=== PATIENT | male | born 1960 | race Caucasian/White ===

== ENCOUNTER 2019-11-08 07:03 | Inpatient (IN) ==
[2019-11-08] MEDS ORDERED: SODIUM CHLORIDE 0.9% 500 ML IV SCH (07:15)
[2019-11-08] MEDS ORDERED: STAT IV Infusion **Titration per Protocol STA ×2 (07:17→12:21)
[2019-11-08] MEDS ORDERED: ETOMIDATE 2 MG/ML 20 ML VIAL IV ONE ×2 (07:17→16:02)
[2019-11-08] MEDS ORDERED: PROPOFOL BOLUS FROM BAG IV PRN ×2 (07:17→12:21)
[2019-11-08] MEDS ORDERED: RAPID SEQUENCE INDUCTION BAG ONE (07:24)
[2019-11-08] MEDS ORDERED: ROCURONIUM BROMIDE 10 MG/ML 5 ML VIAL IV ONE (07:24)
[2019-11-08] MEDS ORDERED: propofoL 1,000 MG/100 ML VIAL IV SCH (07:30)
--- NOTE | 2019-11-08 07:36 | Emergency Department Note ---
Impression & Plan Altered mental status, Respiratory failure, Open wound of left foot ED Provider Note Provider: Alan Barksdale MD DATE OF SERVICE: 11/08/2019 CHIEF COMPLAINT: Unresponsive HISTORY OF PRESENT ILLNESS: Patient is a 58-year-old gentleman with a history of alcoholic cirrhosis, diabetes, recurrent foot infections with a recent hospitalization for encephalopathy treated at that time for Klebsiella pneumonia coming today from [facility] for you to change in mental status overnight. Patient evidently per report from the facility was hospitalized at [facility] for recurrent diabetic foot ulcer as well as encephalopathy. Was on ertapenem at that time. He had a paracentesis at [facility] for 6 L of fluid removed. Evidently there is been some issues at home prior to his hospi talizations with him affording rifaximin they believe the cause of his mental status change was related to that previously. Patient did have a Klebsiella pneumonia that he was treated for as well. Does have a reported underlying history of COPD as well. Facility states that at some point overnight his mental status change. They noted rounding around 6-6 30a this morning that he had gurgling breathing sounds and a code was called to their facility. He was brought here for further care. He was unresponsive for them and did not respond to painful stimuli. EMS reported mildly elevated glucose in the 120s. Upon arrival here he will occasionally move the upper extremities but not following commands. Eyes are roving. Nonverbal. He is unable provide significant history. REVIEW OF SYSTEMS: Unable to obtain secondary to mental status PAST MEDICAL HISTORY: As noted above MEDICATIONS: Reviewed the medication listing from the facility without noted antibiotic. FMH: Unavailable due to the patient's mental status SOCIAL HISTORY: , smoker PHYSICAL EXAM: GENERAL: Laying on the stretcher with an occasional gurgling breathing sounds. Head: normocephalic and atraumatic EYES: No injection, discharge or icterus. NECK: Trachea midline. Supple. ENT: Mucous membranes pink and somewhat dry. The tongue appears to be sliding in the back of the mouth there is no apparent gag with stimulation. LUNGS: No retractions. Breath sounds with some expiratory wheeze but noted bilaterally HEART: Regular rate and rhythm. No chest wall tenderness ABDOMEN: Soft obese and moderately full. Does not appear to be causing tenderness of the limit exam due to his mental status. SKIN: Acyanotic, warm, and diaphoretic in addition to the lower extremity wounds as below there is some healing bruising and plaque of skin on the right upper extremity forearm. EXTREMITIES: 2+ lower extremity edema with some chronic stasis changes as well as a very small slight erythema over the mid left and a approximately 2 x 3 cm area of open wound on the dorsum of the left foot that appears purulent with granulation tissue noted as well. No crepitus grossly appreciated. NEUROLOGICAL: To sternal rub the patient will move both hands towards his chest. No movement noted in the lower extremities. Occasionally will move his left and right upper extremity spontaneously. Not following commands. No obvious facial droop. EK bpm sinus rhythm with rare PVC. No acute ST segment elevation or depressions appreciated. QTC within normal limits. Normal axis. CONTINUOUS CARDIAC MONITORING: was ordered and showed a heart rate of 88 bpm in normal sinus rhythm with rare PVC Patient's hypertension was referred to the hospitalist HOSPITAL COURSE: 657 Patient was first seen and H&P performed. Patient had been obtunded respiratory therapy notified. 729 patient was intubated without apparent complication. 744 discussed with facility via phone recent history. 950 discussed with the PR hospitalist. [address] stenographer. ED Intubation performed by myself, emergent consent given his altered mental status Indication airway protection, altered mental status. The patient was on 100% oxygen via NC prior to the procedure. Suction, airway equipment, RSI drugs, respiratory equipment, and appropriate personnel were prepared prior to the initiation of the procedure. A time out was taken. Induction was performed with 20 mg of etomidate and paralysis with 75 mg of rocuronium. After observing the clinical benefit of the medications, the airway was easily visualized utilizing a 3 glide scope. A 7.5 size ETT tube was placed atraumatically to 24 cm using standard technique. The cuff inflated without signs of malfunction. There were bilateral breath sounds, positive colormetric change, no gastric sounds, a good capnography waveform, and post procedure pulse oximetry was 93 % and rising. Post intubation sedation and paralysis was administered using propofol drip with occasional fentanyl bolus. There were no complications. Patient's laboratory studies and imaging reviewed. Differential includes Infection, dehydration, metabolic abnormality, hypo/hyperglycemia, electrolyte disturbance, anemia, hypoxia, cardiac sources, intracerebral event, toxicologic, neurologic, as well as other pathologies. IMPRESSION/MEDICAL DECISION MAKING: Patient presents with acute change in mental status. Declined at some point overnight but an unclear onset at least an initial discussions with the facility he was at. Recent hospitalization with infection. Patient upon arrival not tachycardic, hypotensive, or significantly hypoxic but not protecting his airway. No gag reflex. Patient currently has gurgling sounds. Given this decision was made for intubation for airway protection. Records from the facility indicate he is a full code. This was completed as above without complication. A broad differential was obtained. He is outside any window for TPA given the unclear onset. Not having significant focal findings on exam. I would lower suspicion for seizure or nonconvulsive status. CT the head however will be obtained as well as vessel studies if creatinine permits. CT of the chest was obtained as well as a chest x-ray. Basic labs, blood culture, VBG, ammonia, lactate were sent. He will be empirically treated given his critical illness at this time with a dose of ertapenem which he is tolerating the past. Patient does have multiple noted allergies on his medication list. Patient's left lung does appear somewhat hazy on the x-ray concerning for possible parenchymal pathology such as pneumonia. No evidence of pneumothorax. I doubt this represents acute PE however given the chest x-ray findings will scan his chest to obtain additional information and exclude other pathology given he will be a CT already. Laboratory studies do show leukocytosis 12.4 here with mild anemia of 10.4. Mild thrombocytopenia is noted. INR slightly elevated. Slight hyponatremia 134. Renal function does not appear significantly different than the previous value from the facility. Bilirubin just slightly elevated. TSH is slightly elevated. Urine is negative for signs of infection. Lactate not significantly elevated. CT the chest without evidence of PE but again questions a possible pneumonia. Did empirically receive ertapenem here given allergy pro file. VBG noted to be slightly acidotic and hypercarbic and vent settings adjusted. Ammonia did take a redraw and was pending. CTs of the head and CT angiograms without acute intracranial abnormality or signs of vascular occlusion. Given this, discussed with the hospitalist here for further inpa tient care and per the request the ICU was notified as well. Ammonia later returned significantly elevated. DIAGNOSIS: Altered mental status, respiratory failure, hepatic encephalopathy, left foot w ound DISPOSITION: Hospitalist will evaluate Critical Care I have personally spent 44 minutes of critical care time in the direct management of this patient. This includes bedside care, interpretation of diagnostic studies, and testing, discussion with consultants, patient, and family members, and other required patient management activities. These 44 minutes is in excess of all separately billable procedures. Past Med/Surg History Social History Smoking Status: Unknown if ever smoked Feels Safe at Home: Declines to Answer Allergies Allergies Allergy/AdvReac Type Severity Reaction Status Date / Time adhesive tape Allergy Unknown Unknown Unverified 11/08/19 08:48 Cephalosporins Allergy Unknown Unknown Unverified 11/08/19 08:48 ciprofloxacin Allergy Unknown Unknown Unverified 11/08/19 08:48 linezolid Allergy Unknown Unknown Unverified 11/08/19 08:48 Penicillins Allergy Unknown Unknown Unverified 11/08/19 08:48 vancomycin Allergy Unknown Unknown Unverified 11/08/19 08:48 Home Meds Home Medications Medication Instructions Recorded Confirmed acetaminophen [Tylenol] 650 mg PO QID PRN 11/08/19 11/08/19 albuterol sulfate 2 puff INHALATION Q6 PRN 11/08/19 11/08/19 atorvastatin 20 mg PO HS 11/08/19 11/08/19 bisacodyl 10 mg MT DAILY PRN 11/08/19 11/08/19 collagenase clostridium histo. 1 applic TOPICAL DAILY 11/08/19 11/08/19 [Santyl] cyanocobalamin (vitamin B-12) 500 mcg PO QAM 11/08/19 11/08/19 dextromethorphan-guaifenesin 10 ml PO Q6H PRN 11/08/19 11/08/19 docusate sodium 100 mg PO BID 11/08/19 11/08/19 fluticasone furoate-vilanterol 1 inh INHALATION QAM 11/08/19 11/08/19 furosemide 40 mg PO BID 11/08/19 11/08/19 gabapentin 100 mg PO TID 11/08/19 11/08/19 lactulose 15 ml PO QID 11/08/19 11/08/19 lidocaine [Lidoderm] 2 patch TOPICAL QAM 11/08/19 11/08/19 magnesium hydroxide [Milk of 30 ml PO DAILY PRN 11/08/19 11/08/19 Magnesia] nystatin 1 applic TOPICAL QID 11/08/19 11/08/19 pantoprazole 40 mg PO QAM 11/08/19 11/08/19 polyethylene glycol 3350 [Miralax] 17 g PO QDL PRN 11/08/19 11/08/19 prednisone 30 mg PO QAM 11/08/19 11/08/19 rifaximin [Xifaxan] 550 mg PO BID 11/08/19 11/08/19 sennosides-docusate sodium 1 tab-cap PO QDL PRN 11/08/19 11/08/19 [Senokot-S] sodium phosphates [Fleet Enema] 133 ml MT DAILY PRN 11/08/19 11/08/19 spironolactone 100 mg PO BID 11/08/19 11/08/19 sucralfate 1 g PO QAM 11/08/19 11/08/19 tamsulosin 0.4 mg PO QAM 11/08/19 11/08/19 thiamine HCl (vitamin B1) 100 mg PO QAM 11/08/19 11/08/19 umeclidinium [Incruse Ellipta] 1 inh INHALATION QAM 11/08/19 11/08/19 zinc sulfate 220 mg PO QAM 11/08/19 11/08/19 Results & Data (ED) Vital Signs Vital Signs - 24 hr 11/08/19 06:53 11/08/19 07:07 11/08/19 07:10 Temperature 35.8 C L Temperature Source Rectal Pulse Rate 84 81 77 Pulse Rate from SpO2 Sensor 81 81 Respiratory Rate 14 18 17 Respiratory Effort / Characteristics Labored Respiratory Depth Shallow Blood Pressure 112/70 112/70 Blood Pressure Mean 84 73 Blood Pressure Position Lying Pulse Oximetry 97 96 96 Oxygen Delivery Method Room Air Room Air Room Air Fraction of Inspired Oxygen Sepsis Recent Fever Within 48 Hours Yes Sepsis New/Unexplained Change in Mental Status Yes Sepsis Action Taken by Nursing Physician Notified End-Tidal CO2 11/08/19 07:23 11/08/19 07:30 11/08/19 07:32 Temperature Temperature Source Pulse Rate 75 74 93 H Pulse Rate from SpO2 Sensor 74 75 92 H Respiratory Rate 15 16 23 Respiratory Effort / Characteristics Respiratory Depth Blood Pressure 177/105 H Blood Pressure Mean 125 Blood Pressure Position Pulse Oximetry 100 100 93 Oxygen Delivery Method Room Air Room Air Room Air Fraction of Inspired Oxygen Sepsis Recent Fever Within 48 Hours Sepsis New/Unexplained Change in Mental Status Sepsis Action Taken by Nursing End-Tidal CO2 11/08/19 07:40 11/08/19 07:50 11/08/19 08:00 Temperature Temperature Source Pulse Rate 85 84 85 Pulse Rate from SpO2 Sensor 86 84 84 Respiratory Rate 16 Respiratory Effort / Characteristics Respiratory Depth Blood Pressure Blood Pressure Mean Blood Pressure Position Pulse Oximetry 98 100 100 Oxygen Delivery Method Mechanical Vent Mechanical Vent Mechanical Vent Fraction of Inspired Oxygen 100 Sepsis Recent Fever Within 48 Hours Sepsis New/Unexplained Change in Mental Status Sepsis Action Taken by Nursing End-Tidal CO2 36 36 39 11/08/19 08:09 11/08/19 08:10 11/08/19 08:16 Temperature Temperature Source Pulse Rate 82 84 85 Pulse Rate from SpO2 Sensor 82 82 85 Respiratory Rate Respiratory Effort / Characteristics Respiratory Depth Blood Pressure 195/75 H 180/78 H Blood Pressure Mean 99 123 Blood Pressure Position Pulse Oximetry 100 100 100 Oxygen Delivery Method Mechanical Vent Mechanical Vent Mechanical Vent Fraction of Inspired Oxygen Sepsis Recent Fever Within 48 Hours Sepsis New/Unexplained Change in Mental Status Sepsis Action Taken by Nursing End-Tidal CO2 36 37 37 11/08/19 08:20 11/08/19 08:27 11/08/19 08:30 Temperature Temperature Source Pulse Rate 82 85 84 Pulse Rate from SpO2 Sensor 81 84 85 Respiratory Rate Respiratory Effort / Characteristics Respiratory Depth Blood Pressure 187/75 H Blood Pressure Mean 93 Blood Pressure Position Pulse Oximetry 100 100 98 Oxygen Delivery Method Mechanical Vent Mechanical Vent Mechanical Vent Fraction of Inspired Oxygen Sepsis Recent Fever Within 48 Hours Sepsis New/Unexplained Change in Mental Status Sepsis Action Taken by Nursing End-Tidal CO2 39 37 38 11/08/19 08:31 11/08/19 08:39 11/08/19 08:40 Temperature Temperature Source Pulse Rate 83 80 81 Pulse Rate from SpO2 Sensor 87 81 83 Respiratory Rate Respiratory Effort / Characteristics Respiratory Depth Blood Pressure 173/77 H 180/74 H Blood Pressure Mean 110 124 Blood Pressure Position Pulse Oximetry 100 99 100 Oxygen Delivery Method Mechanical Vent Mechanical Vent Mechanical Vent Fraction of Inspired Oxygen Sepsis Recent Fever Within 48 Hours Sepsis New/Unexplained Change in Mental Status Sepsis Action Taken by Nursing End-Tidal CO2 43 39 40 11/08/19 08:50 11/08/19 09:20 11/08/19 09:23 Temperature Temperature Source Pulse Rate 76 74 Pulse Rate from SpO2 Sensor 76 74 Respiratory Rate Respiratory Effort / Characteristics Respiratory Depth Blood Pressure 141/65 H Blood Pressure Mean 105 Blood Pressure Position Pulse Oximetry 95 99 Oxygen Delivery Method Mechanical Vent Mechanical Vent Fraction of Inspired Oxygen Sepsis Recent Fever Within 48 Hours Sepsis New/Unexplained Change in Mental Status Sepsis Action Taken by Nursing End-Tidal CO2 37 33 11/08/19 09:30 11/08/19 09:35 11/08/19 09:36 Temperature Temperature Source Pulse Rate 73 73 73 Pulse Rate from SpO2 Sensor 73 73 73 Respiratory Rate Respiratory Effort / Characteristics Respiratory Depth Blood Pressure Blood Pressure Mean 95 92 Blood Pressure Position Pulse Oximetry 97 97 98 Oxygen Delivery Method Mechanical Vent Mechanical Vent Mechanical Vent Fraction of Inspired Oxygen Sepsis Recent Fever Within 48 Hours Sepsis New/Unexplained Change in Mental Status Sepsis Action Taken by Nursing End-Tidal CO2 40 41 40 11/08/19 09:38 11/08/19 09:39 11/08/19 09:40 Temperature Temperature Source Pulse Rate 70 72 72 Pulse Rate from SpO2 Sensor 72 70 72 Respiratory Rate Respiratory Effort / Characteristics Respiratory Depth Blood Pressure 124/70 Blood Pressure Mean 94 Blood Pressure Position Pulse Oximetry 98 97 99 Oxygen Delivery Method Mechanical Vent Mechanical Vent Mechanical Vent Fraction of Inspired Oxygen Sepsis Recent Fever Within 48 Hours Sepsis New/Unexplained Change in Mental Status Sepsis Action Taken by Nursing End-Tidal CO2 41 42 36 11/08/19 09:46 11/08/19 09:50 11/08/19 10:00 Temperature Temperature Source Pulse Rate 70 67 65 Pulse Rate from SpO2 Sensor 69 67 66 Respiratory Rate Respiratory Effort / Characteristics Respiratory Depth Blood Pressure 124/67 Blood Pressure Mean 83 Blood Pressure Position Pulse Oximetry 98 99 99 Oxygen Delivery Method Mechanical Vent Mechanical Vent Mechanical Vent Fraction of Inspired Oxygen Sepsis Recent Fever Within 48 Hours Sepsis New/Unexplained Change in Mental Status Sepsis Action Taken by Nursing End-Tidal CO2 41 40 38 11/08/19 10:01 11/08/19 10:10 11/08/19 10:14 Temperature Temperature Source Pulse Rate 64 62 61 Pulse Rate from SpO2 Sensor 63 62 61 Respiratory Rate Respiratory Effort / Characteristics Respiratory Depth Blood Pressure 119/48 L 114/60 Blood Pressure Mean 70 64 Blood Pressure Position Pulse Oximetry 99 98 98 Oxygen Delivery Method Mechanical Vent Mechanical Vent Mechanical Vent Fraction of Inspired Oxygen Sepsis Recent Fever Within 48 Hours Sepsis New/Unexplained Change in Mental Status Sepsis Action Taken by Nursing End-Tidal CO2 37 39 40 11/08/19 10:15 11/08/19 10:20 11/08/19 10:30 Temperature Temperature Source Pulse Rate 61 59 L 64 Pulse Rate from SpO2 Sensor 61 60 64 Respiratory Rate Respiratory Effort / Characteristics Respiratory Depth Blood Pressure 123/65 127/77 Blood Pressure Mean 84 93 Blood Pressure Position Pulse Oximetry 99 98 98 Oxygen Delivery Method Mechanical Vent Mechanical Vent Mechanical Vent Fraction of Inspired Oxygen Sepsis Recent Fever Within 48 Hours Sepsis New/Unexplained Change in Mental Status Sepsis Action Taken by Nursing End-Tidal CO2 40 21 34 11/08/19 10:31 Temperature Temperature Source Pulse Rate 60 Pulse Rate from SpO2 Sensor 58 L Respiratory Rate Respiratory Effort / Characteristics Respiratory Depth Blood Pressure Blood Pressure Mean Blood Pressure Position Pulse Oximetry 98 Oxygen Delivery Method Mechanical Vent Fraction of Inspired Oxygen Sepsis Recent Fever Within 48 Hours Sepsis New/Unexplained Change in Mental Status Sepsis Action Taken by Nursing End-Tidal CO2 36 Laboratory Data Result diagrams: 11/08/19 07:47 11/08/19 09:35 Lab Results 11/08/19 11/08/19 11/08/19 Range/Units 07:30 07:47 07:47 WBC 12.45 H (4.8-10.8) K/uL RBC 3.48 L (4.7-6.1) M/uL Hgb 10.4 L (14.0-18.0) g/dL POC Hgb (14.0-18.0) g/dl Hct 32.8 L (42-52) % POC Hct (42-52) % MCV 94.3 (80-100) fL MCH 29.9 (25-34) pg MCHC 31.7 L (32-36) g/dL RDW Std Deviation 71.2 H (36.4-46.3) fL RDW Coeff of Bret 21.2 H (11.5-14.5) % Plt Count 107 L (130-400) K/uL MPV 12.0 H (7.4-10.4) fL Immature Gran % (Auto) 0.6 % Neut % (Auto) 84.5 % Lymph % (Auto) 6.1 % [place] % (Auto) 7.8 % Eos % (Auto) 0.9 % Baso % (Auto) 0.1 % Neut # (Auto) 10.53 H (1.4-6.5) K/uL Lymph # (Auto) 0.76 L (1.2-3.4) K/uL [place] # (Auto) 0.97 H (0.11-0.59) K/uL Eos # (Auto) 0.11 (0-0.5) K/uL Baso # (Auto) 0.01 (0-0.2) K/uL Immature Gran # (Auto) 0.07 H (0.00-0.02) K/uL Polychromasia 1+ Anisocytosis Present Spherocytes 1+ Tear Drop Cells 1+ Schistocytes Occasional PT (9.0-12.0) Seconds INR (0.9-1.1) VBG pH (7.36-7.41) VBG pCO2 (38-50) mmHg VBG pO2 mmHg VBG HCO3 mmol/L VBG O2 Saturation % VBG Base Excess mEq/L Barometric Pressure mm/Hg POC Sodium (135-144) mmol/L Sodium (136-145) mmol/L POC Potassium (3.3-5.0) mmol/L Potassium (3.5-5.1) mmol/L POC Chloride (101-112) mmol/L Chloride (98-107) mmol/L Carbon Dioxide (21-32) mmol/L POC Total CO2 (24-31) mmol/L Anion Gap (3-11) POC Anion Gap (16-25) mmol/L POC BUN (7-18) mg/dl BUN (7-18) mg/dl Creatinine (0.6-1.4) mg/dl POC Creatinine (0.6-1.3) mg/dl Est Cr Clr Drug Dosing ml/min Est GFR ( Amer) Est GFR (Non-Af Amer) BUN/Creatinine Ratio (10-20) Glucose (70-99) mg/dl POC Glucose (other) (70-99) mg/dl Lactate (0.4-2.0) mmol/L Calcium (8.5-10.1) mg/dl POC Ioniz Calcium Isha (1.12-1.32) mmol/l Magnesium (1.8-2.4) mg/dl Total Bilirubin (0.2-1) mg/dl AST (15-37) U/L ALT (12-78) U/L Alkaline Phosphatase (45-117) U/L Ammonia Cancelled Troponin I (0-0.045) ng/ml Total Protein (6.4-8.2) gm/dl Albumin (3.4-5.0) gm/dl Globulin (2.5-4.0) gm/dl Albumin/Globulin Ratio (0.9-2) TSH (0.300-4.500) uIu/ml Free T4 (0.8-1.6) ng/dl Urine Color Yellow Urine Appearance Clear (Clear) Urine pH 6.0 (4.5-7.5) Ur Specific Ponce 1.014 (1.000-1.030) Urine Protein Negative (Negative) Urine Glucose (UA) Negative (Negative) Urine Ketones Negative (Negative) Urine Blood Negative (Negative) Urine Nitrite Negative (Negative) Urine Bilirubin Negative (Negative) Urine Urobilinogen Negative (Negative) Ur Leukocyte Esterase Negative (Negative) 11/08/19 11/08/19 11/08/19 Range/Units 07:47 07:47 07:47 WBC (4.8-10.8) K/uL RBC (4.7-6.1) M/uL Hgb (14.0-18.0) g/dL POC Hgb (14.0-18.0) g/dl Hct (42-52) % POC Hct (42-52) % MCV (80-100) fL MCH (25-34) pg MCHC (32-36) g/dL RDW Std Deviation (36.4-46.3) fL RDW Coeff of Bret (11.5-14.5) % Plt Count (130-400) K/uL MPV (7.4-10.4) fL Immature Gran % (Auto) % Neut % (Auto) % Lymph % (Auto) % [place] % (Auto) % Eos % (Auto) % Baso % (Auto) % Neut # (Auto) (1.4-6.5) K/uL Lymph # (Auto) (1.2-3.4) K/uL [place] # (Auto) (0.11-0.59) K/uL Eos # (Auto) (0-0.5) K/uL Baso # (Auto) (0-0.2) K/uL Immature Gran # (Auto) (0.00-0.02) K/uL Polychromasia Anisocytosis Spherocytes Tear Drop Cells Schistocytes PT 13.8 H (9.0-12.0) Seconds INR 1.3 H (0.9-1.1) VBG pH (7.36-7.41) VBG pCO2 (38-50) mmHg VBG pO2 mmHg VBG HCO3 mmol/L VBG O2 Saturation % VBG Base Excess mEq/L Barometric Pressure mm/Hg POC Sodium (135-144) mmol/L Sodium 134 L (136-145) mmol/L POC Potassium (3.3-5.0) mmol/L Potassium (3.5-5.1) mmol/L POC Chloride (101-112) mmol/L Chloride 106 (98-107) mmol/L Carbon Dioxide 22 (21-32) mmol/L POC Total CO2 (24-31) mmol/L Anion Gap 6.0 (3-11) POC Anion Gap (16-25) mmol/L POC BUN (7-18) mg/dl BUN 53 H (7-18) mg/dl Creatinine 1.24 (0.6-1.4) mg/dl POC Creatinine (0.6-1.3) mg/dl Est Cr Clr Drug Dosing 89.5 ml/min Est GFR ( Amer) 73.8 Est GFR (Non-Af Amer) 63.7 BUN/Creatinine Ratio 43.0 H (10-20) Glucose 104 H (70-99) mg/dl POC Glucose (other) (70-99) mg/dl Lactate 1.6 (0.4-2.0) mmol/L Calcium 8.7 (8.5-10.1) mg/dl POC Ioniz Calcium Isha (1.12-1.32) mmol/l Magnesium (1.8-2.4) mg/dl Total Bilirubin 1.5 H (0.2-1) mg/dl AST (15-37) U/L ALT 30 (12-78) U/L Alkaline Phosphatase 155 H (45-117) U/L Ammonia Troponin I < 0.015 (0-0.045) ng/ml Total Protein 7.2 (6.4-8.2) gm/dl Albumin 1.8 L (3.4-5.0) gm/dl Globulin 5.4 H (2.5-4.0) gm/dl Albumin/Globulin Ratio 0.3 L (0.9-2) TSH 6.820 H (0.300-4.500) uIu/ml Free T4 0.92 (0.8-1.6) ng/dl Urine Color Urine Appearance (Clear) Urine pH (4.5-7.5) Ur Specific Ponce (1.000-1.030) Urine Protein (Negative) Urine Glucose (UA) (Negative) Urine Ketones (Negative) Urine Blood (Negative) Urine Nitrite (Negative) Urine Bilirubin (Negative) Urine Urobilinogen (Negative) Ur Leukocyte Esterase (Negative) 11/08/19 11/08/19 11/08/19 Range/Units 08:09 08:19 09:35 WBC (4.8-10.8) K/uL RBC (4.7-6.1) M/uL Hgb (14.0-18.0) g/dL POC Hgb 9.5 L (14.0-18.0) g/dl Hct (42-52) % POC Hct 28 L (42-52) % MCV (80-100) fL MCH (25-34) pg MCHC (32-36) g/dL RDW Std Deviation (36.4-46.3) fL RDW Coeff of Bret (11.5-14.5) % Plt Count (130-400) K/uL MPV (7.4-10.4) fL Immature Gran % (Auto) % Neut % (Auto) % Lymph % (Auto) % [place] % (Auto) % Eos % (Auto) % Baso % (Auto) % Neut # (Auto) (1.4-6.5) K/uL Lymph # (Auto) (1.2-3.4) K/uL [place] # (Auto) (0.11-0.59) K/uL Eos # (Auto) (0-0.5) K/uL Baso # (Auto) (0-0.2) K/uL Immature Gran # (Auto) (0.00-0.02) K/uL Polychromasia Anisocytosis Spherocytes Tear Drop Cells Schistocytes PT (9.0-12.0) Seconds INR (0.9-1.1) VBG pH 7.27 L (7.36-7.41) VBG pCO2 52 H (38-50) mmHg VBG pO2 68 mmHg VBG HCO3 23 mmol/L VBG O2 Saturation 89.4 % VBG Base Excess -3.9 mEq/L Barometric Pressure 723.2 mm/Hg POC Sodium 139 (135-144) mmol/L Sodium (136-145) mmol/L POC Potassium 4.1 (3.3-5.0) mmol/L Potassium (3.5-5.1) mmol/L POC Chloride 108 (101-112) mmol/L Chloride (98-107) mmol/L Carbon Dioxide (21-32) mmol/L POC Total CO2 22 L (24-31) mmol/L Anion Gap (3-11) POC Anion Gap 14.0 L (16-25) mmol/L POC BUN 56 H (7-18) mg/dl BUN (7-18) mg/dl Creatinine (0.6-1.4) mg/dl POC Creatinine 0.9 (0.6-1.3) mg/dl Est Cr Clr Drug Dosing ml/min Est GFR ( Amer) Est GFR (Non-Af Amer) BUN/Creatinine Ratio (10-20) Glucose (70-99) mg/dl POC Glucose (other) 98 (70-99) mg/dl Lactate (0.4-2.0) mmol/L Calcium (8.5-10.1) mg/dl POC Ioniz Calcium Isha 1.10 L (1.12-1.32) mmol/l Magnesium (1.8-2.4) mg/dl Total Bilirubin (0.2-1) mg/dl AST (15-37) U/L ALT (12-78) U/L Alkaline Phosphatase (45-117) U/L Ammonia 203.6 H Troponin I (0-0.045) ng/ml Total Protein (6.4-8.2) gm/dl Albumin (3.4-5.0) gm/dl Globulin (2.5-4.0) gm/dl Albumin/Globulin Ratio (0.9-2) TSH (0.300-4.500) uIu/ml Free T4 (0.8-1.6) ng/dl Urine Color Urine Appearance (Clear) Urine pH (4.5-7.5) Ur Specific Ponce (1.000-1.030) Urine Protein (Negative) Urine Glucose (UA) (Negative) Urine Ketones (Negative) Urine Blood (Negative) Urine Nitrite (Negative) Urine Bilirubin (Negative) Urine Urobilinogen (Negative) Ur Leukocyte Esterase (Negative) 08/29/20 Range/Units 09:35 WBC (4.8-10.8) K/uL RBC (4.7-6.1) M/uL Hgb (14.0-18.0) g/dL POC Hgb (14.0-18.0) g/dl Hct (42-52) % POC Hct (42-52) % MCV (80-100) fL MCH (25-34) pg MCHC (32-36) g/dL RDW Std Deviation (36.4-46.3) fL RDW Coeff of Bret (11.5-14.5) % Plt Count (130-400) K/uL MPV (7.4-10.4) fL Immature Gran % (Auto) % Neut % (Auto) % Lymph % (Auto) % [place] % (Auto) % Eos % (Auto) % Baso % (Auto) % Neut # (Auto) (1.4-6.5) K/uL Lymph # (Auto) (1.2-3.4) K/uL [place] # (Auto) (0.11-0.59) K/uL Eos # (Auto) (0-0.5) K/uL Baso # (Auto) (0-0.2) K/uL Immature Gran # (Auto) (0.00-0.02) K/uL Polychromasia Anisocytosis Spherocytes Tear Drop Cells Schistocytes PT (9.0-12.0) Seconds INR (0.9-1.1) VBG pH (7.36-7.41) VBG pCO2 (38-50) mmHg VBG pO2 mmHg VBG HCO3 mmol/L VBG O2 Saturation % VBG Base Excess mEq/L Barometric Pressure mm/Hg POC Sodium (135-144) mmol/L Sodium (136-145) mmol/L POC Potassium (3.3-5.0) mmol/L Potassium 4.3 (3.5-5.1) mmol/L POC Chloride (101-112) mmol/L Chloride (98-107) mmol/L Carbon Dioxide (21-32) mmol/L POC Total CO2 (24-31) mmol/L Anion Gap (3-11) POC Anion Gap (16-25) mmol/L POC BUN (7-18) mg/dl BUN (7-18) mg/dl Creatinine (0.6-1.4) mg/dl POC Creatinine (0.6-1.3) mg/dl Est Cr Clr Drug Dosing ml/min Est GFR ( Amer) Est GFR (Non-Af Amer) BUN/Creatinine Ratio (10-20) Glucose (70-99) mg/dl POC Glucose (other) (70-99) mg/dl Lactate (0.4-2.0) mmol/L Calcium (8.5-10.1) mg/dl POC Ioniz Calcium Isha (1.12-1.32) mmol/l Magnesium 2.0 (1.8-2.4) mg/dl Total Bilirubin (0.2-1) mg/dl AST 29 (15-37) U/L ALT (12-78) U/L Alkaline Phosphatase (45-117) U/L Ammonia Troponin I (0-0.045) ng/ml Total Protein (6.4-8.2) gm/dl Albumin (3.4-5.0) gm/dl Globulin (2.5-4.0) gm/dl Albumin/Globulin Ratio (0.9-2) TSH (0.300-4.500) uIu/ml Free T4 (0.8-1.6) ng/dl Urine Color Urine Appearance (Clear) Urine pH (4.5-7.5) Ur Specific Ponce (1.000-1.030) Urine Protein (Negative) Urine Glucose (UA) (Negative) Urine Ketones (Negative) Urine Blood (Negative) Urine Nitrite (Negative) Urine Bilirubin (Negative) Urine Urobilinogen (Negative) Ur Leukocyte Esterase (Negative) Administered Medications Albuterol (Albut/Ipratrop 3mg/0.5mg Neb 3 Ml Vial) 3 ml NEB QIDR [facility] Stop: 12/08/19 12:20 Last Admin: 11/08/19 12:46 Dose: Not Given Documented by: [id number] Propofol (Propofol Bolus From Bag) 20 mg IV Q5M PRN PRN Reason: Sedation Stop: 11/11/19 07:16 Last Admin: 11/08/19 07:44 Dose: 20 mg Documented by: [id number] Cosigned by: [id number] Discontinued Medications Etomidate (Etomidate 2 Mg/Ml 20 Ml Vial) 20 mg IV NOW ONE Stop: 11/08/19 07:18 Last Admin: 11/08/19 07:43 Dose: 20 mg Documented by: [id number] Fentanyl Citrate (Fentanyl Citrate 100 Mcg/2 Ml Vial) 100 mcg IV NOW STA Stop: 11/08/19 08:38 Last Admin: 11/08/19 08:39 Dose: 100 mcg Documented by: [id number] Sodium Chloride (Nss) 500 mls @ 999 mls/hr IV .Q31M MADELYN Stop: 11/08/19 07:45 Last Infusion: 11/08/19 08:25 Dose: 24.8 mls/hr Documented by: [id number] Admin: 11/08/19 07:42 Dose: 999 mls/hr Documented by: [id number] Ertapenem (Invanz) 10 mls @ 2 mls/min IV NOW STA Stop: 11/08/19 07:49 Last Admin: 11/08/19 07:59 Dose: 2 mls/min Documented by: [id number] Ioversol (Optiray 320 125ml) 117 ml IV ONCE ONE Stop: 11/08/19 08:58 Last Admin: 11/08/19 09:03 Dose: 117 ml Documented by: [id number] Misadinaaneous (Stat Iv Infusion Titration Per Protocol) 1 ea N/A NOW STA Stop: 11/08/19 07:18 Last Admin: 11/08/19 07:44 Dose: 1 ea Documented by: [id number] Miscellaneous (Rapid Sequence Induction Bag) Confirm Administered Dose 1 ea .ROUTE .STK-MED ONE Stop: 11/08/19 07:25 Last Admin: 11/08/19 07:43 Dose: 1 ea Documented by: [id number] Propofol (Propofol Iv Emulsion 10 Mg/Ml 100 Ml Vial) Confirm Administered Dose 1,000 mg IV .STK-MED ONE Stop: 11/08/19 07:42 Last Admin: 11/08/19 07:43 Dose: 1,000 mg Documented by: [id number] Cosigned by: [id number] Rocuronium [place] (Rocuronium [place] 10 Mg/Ml 5 Ml Vial) 80 mg IV ONCE ONE Stop: 11/08/19 07:25 Last Admin: 11/08/19 07:43 Dose: 75 mg Documented by: [id number] Cosigned by: [id number] Discharge Plan Visit Data Chief Complaint: Altered Mental Status ED Provider: Alan Barksdale Discharge Problem: Altered mental status, Respiratory failure, Open wound of left foot Patient Disposition: Admitted As Inpatient Discharge Instructions Interventions: ED Discharge Assessment Last Done: 11/08/19 12:05 Discharge Problem: Altered mental status Qualifiers: Altered mental status type: unspecified Qualified Code(s): R41.82 - Altered mental status, unspecified Respiratory failure Qualifiers: Chronicity: acute Respiratory failure complication: unspecified whether with hypoxia or hypercapnia Qualified Code(s): J96.00 - Acute respiratory failure, unspecified whether with hypoxia or hypercapnia Open wound of left foot Qualifiers: Encounter type: subsequent encounter Qualified Code(s): S91.302D - Unspecified open wound, left foot, subsequent encounter
[2019-11-08] MEDS ORDERED: PROPOFOL IV EMULSION 10 MG/ML 100 ML VIAL IV ONE ×2 (07:41→11:49)
[2019-11-08] MEDS ORDERED: ERTAPENEM SODIUM 10 ML IV STA (07:45)
--- NOTE | 2019-11-08 08:06 | XRay Report ---
SINGLE VIEW CHEST CLINICAL HISTORY: Generalized weakness. Intubation. FINDINGS: An AP, portable, semierect chest radiograph is compared obtained. No prior studies are avai lable for comparison at the time of dictation. The examination is degraded by portable technique and patient rotation. An endotracheal tube has been placed. The tip projects 2.7 cm above the aristeo. The cardiac silhouette appears enlarged. There is pulmonary vascular congestion. There is opacification throughout the left hemithorax, likely representing pleural effusion and consolidation. No pneumothor ax is seen. The bony thorax is grossly intact. A left shoulder arthroplasty is partially imaged. Arth ritic change is seen in the right shoulder. IMPRESSION: 1. An endotracheal tube has been placed as above. 2. Cardiac enlargement with pulmonary vascular congestion. 3. Opacification throughout the left hemithorax likely represents layering pleural effusion and conso lidation. ACT 112: Negative or not required by law. Electronically signed by: Tony Coto M.D. 11/08/2019 8:05 AM
[2019-11-08 08:16] LABS: INR 1.3 (0.9-1.1); Prothrombin Time 13.8 Seconds (9.0-12.0)
[2019-11-08 08:17] LABS: Appearance Urine Clear (Clear); Bilirubin Urine Negative (Negative); Blood Urine Negative (Negative); Color Urine Yellow; Glucose Urine UA Negative (Negative); Ketones Urine Negative (Negative); Leukocyte Esterase Urine Negative (Negative); Nitrite Urine Negative (Negative); Protein Urine Negative (Negative); Specific Gravity Urine 1.014 (1.000-1.030); Urobilinogen Urine Negative (Negative)
[2019-11-08 08:25] LABS: Base Excess VBG -3.9 mEq/L; Oxygen Saturation VBG 89.4 %; pH VBG 7.27 (7.36-7.41)
[2019-11-08 08:33] LABS: Alanine Aminotransferase 30 U/L (12-78); Albumin Globulin Ratio 0.3 (0.9-2); Albumin Level 1.8 gm/dl (3.4-5.0); Alkaline Phosphatase 155 U/L (45-117); Bilirubin,Total 1.5 mg/dl (0.2-1); Blood Urea Nitrogen 53 mg/dl (7-18); Calcium 8.7 mg/dl (8.5-10.1); Carbon Dioxide 22 mmol/L (21-32); Chloride 106 mmol/L (98-107); Creatinine Clr Calc Pharmacy 89.5 ml/min; Est GFR (African American) 73.8; Est GFR (Non-African American) 63.7; Globulin 5.4 gm/dl (2.5-4.0); Glucose 104 mg/dl (70-99); Sodium 134 mmol/L (136-145); Total Protein 7.2 gm/dl (6.4-8.2); Troponin I < 0.015 ng/ml (0-0.045)
[2019-11-08 08:34] LABS: Hematocrit (blood only) 32.8 % (42-52); Hemoglobin 10.4 g/dL (14.0-18.0); Mean Corpuscular Hemoglobin 29.9 pg (25-34); Mean Corpuscular Hgb Conc 31.7 g/dL (32-36); Mean Corpuscular Volume 94.3 fL (80-100); Platelet Count 107 K/uL (130-400); RDW Coefficient of Variation 21.2 % (11.5-14.5); RDW Standard Deviation 71.2 fL (36.4-46.3); Red Blood Count 3.48 M/uL (4.7-6.1); White Blood Count 12.45 K/uL (4.8-10.8)
[2019-11-08 08:35] LABS: Anisocytosis Present; Basophils # (auto) 0.01 K/uL (0-0.2); Basophils % (auto) 0.1 %; Eosinophils # (auto) 0.11 K/uL (0-0.5); Eosinophils % (auto) 0.9 %; Immature Granulocytes # (auto) 0.07 K/uL (0.00-0.02); Immature Granulocytes % (auto) 0.6 %; Lymphocytes # (auto) 0.76 K/uL (1.2-3.4); Lymphocytes % (auto) 6.1 %; Monocytes # (auto) 0.97 K/uL (0.11-0.59); Monocytes % (auto) 7.8 %; Neutrophils # (auto) 10.53 K/uL (1.4-6.5); Neutrophils % (auto) 84.5 %; Polychromasia 1+; Schistocytes Occasional; Spherocytes 1+; Tear Drop Cells 1+
[2019-11-08] MEDS ORDERED: fentaNYL citrate 100 MCG/2 ML VIAL IV STA (08:37)
[2019-11-08 08:38] LABS: iSTAT Creatinine 0.9 mg/dl (0.6-1.3); iSTAT Hemoglobin 9.5 g/dl (14.0-18.0); iSTAT Ionized Calcium 1.1 mmol/l (1.12-1.32); iSTAT Potassium 4.1 mmol/L (3.3-5.0)
[2019-11-08 08:50] LABS: T4 Free Thyroxine 0.92 ng/dl (0.8-1.6)
[2019-11-08] MEDS ORDERED: OPTIRAY 320 125ml IV ONE (08:57)
--- NOTE | 2019-11-08 09:16 | CT Scan Report ---
CT SCAN OF THE BRAIN WITHOUT IV CONTRAST CLINICAL HISTORY: Change in mental status. COMPARISON STUDY: No priors. TECHNIQUE: Unenhanced axial CT scan of the brain is performed from the vertex to the skull base. A do se lowering technique was utilized adhering to the principles of ALARA. The examination is modestly d egraded by motion artifact. 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 Brain parenchyma: There are age-related involutional changes noting mild subcortical and periventric ular microangiopathic change. There is no hemorrhage, mass effect, or evidence of acute territorial i schemia by CT criteria. Vu-white matter differentiation is preserved. No extra-axial fluid collecti on is seen. Ventricles, sulci, cisterns: Prominent secondary to involutional change. Intracranial vasculature: There is atherosclerotic calcification of the cavernous carotid and vertebr al arteries. Calvarium: Unremarkable. Soft tissues: There is left frontoparietal scalp contusion. Sinuses and mastoids: Mild mucosal thickening is noted in the sphenoid sinuses. There is trace mucosa l thickening in the maxillary antra with trace fluid on the left. Moderate mucosal thickening is seen in the ethmoid sinuses. There are small mastoid effusions. Layering fluid is noted in the pharynx. Orbits: The bony orbits are grossly intact. There are bilateral ocular lens implants. IMPRESSION: There is no hemorrhage, mass effect, or evidence of acute territorial ischemia by CT akint roxy. ACT 112: Negative or not required by law. Electronically signed by: Tony Coto M.D. 11/08/2019 9:15 AM
--- NOTE | 2019-11-08 09:24 | CT Scan Report ---
CT ANGIOGRAM OF THE CHEST CLINICAL HISTORY: Change in mental status. Pneumonia. COMPARISON STUDY: Chest x-ray dated 11/08/2019. TECHNIQUE: Following the IV administration of 117 cc of Optiray 320, CT angiogram of the chest was pe rformed from the upper abdomen to the thoracic inlet utilizing the pulmonary embolus protocol. Images are reviewed in the axial, sagittal, and coronal planes. 3-D MIPS images are created and assessed. I V contrast was administered without complication. A dose lowering technique was utilized adhering to the principles of ALARA. The examination is significantly degraded by motion artifact, as well as by streak artifact from the arms which could not be elevated above the chest. CT DOSE: 1774.00 mGy.cm FINDINGS: Thyroid: Imaged portions of the thyroid gland are normal in size and attenuation. Thoracic aorta: There is atherosclerotic calcification of the thoracic aorta, which is normal in chayo matti and demonstrates standard 3-vessel arch anatomy. No dissection is seen. Pulmonary vasculature: The pulmonary trunk is normal in caliber. There are no filling defects identif ied in main or lobar pulmonary branches to suggest pulmonary embolus. Evaluation of the segmental and subsegmental branches is significantly degraded by streak and motion artifact. Heart: The heart is mildly enlarged and without pericardial effusion. The coronary arteries are dense ly calcified. Lungs and pleural spaces: Evaluation of the lung parenchyma is degraded by motion artifact. No endotr acheal tube terminates above the aristeo. Secretions are noted within the mainstem bronchi. There are trace right and large left pleural effusions with dense bibasilar consolidation. Mediastinum: There is no mediastinal lymphadenopathy. Kimberlee: Clear. Axillae: There is no axillary lymphadenopathy. Upper abdomen: The liver is cirrhotic in morphology. Ascites is noted in the upper abdomen. Skeletal structures: The skeletal structures are osteopenic. No lytic or blastic bony lesions are see n. A left shoulder arthroplasty is in place. Arthritic change is noted in the right shoulder. IMPRESSION: 1. Streak and motion compromised examination. 2. There is no evidence of central pulmonary embolus in the main or lobar pulmonary arteries. Evaluat ion of the segmental and subsegmental branches is severely degraded by streak and motion artifact. 3. There are large left and trace right pleural effusions with dense bibasilar atelectasis. Correlate clinically for evidence of superimposed pneumonia. 4. Cirrhosis and ascites is noted in the upper abdomen. 5. Additional findings as above. ACT 112: Negative or not required by law. Electronically signed by: Tony Coto M.D. 11/08/2019 9:23 AM
--- NOTE | 2019-11-08 09:36 | CT Scan Report ---
CT ANGIOGRAM OF THE BRAIN; CT ANGIOGRAM OF THE NECK CLINICAL HISTORY: Change in mental status. COMPARISON STUDY: Unenhanced CT of the brain performed concurrently on 11/08/2019. TECHNIQUE: Following the IV administration of 117 of Optiray 320, CT angiogram of the head and neck w as performed from the aortic arch to the vertex. Images are reviewed in the axial, sagittal, and roby nal planes. 3-D MIPS images are created and assessed. IV contrast was administered without complicati on. All measurements were calculated based on NASCET criteria. A dose lowering technique was utilize d adhering to the principles of ALARA. FINDINGS: Brain parenchyma: There is age-related involutional change noting mild subcortical and periventricula r microangiopathic disease. There is no hemorrhage, mass effect, or evidence of acute territorial isc hemia by CT criteria. There is no evidence of enhancing mass lesion on the angiogram phase images. Th e ventricles, sulci, and cisterns are normal in configuration. Vu-white matter differentiation is p reserved. No extra-axial fluid collection is seen. Thoracic aorta: There is atherosclerotic calcification of the thoracic aorta. Visualized portions of the thoracic aorta are normal in caliber. The aortic arch demonstrates standard 3-vessel anatomy. Right carotid arterial system: The right common carotid artery is widely patent, as are the right int ernal and external carotid arteries. Calcified plaque is noted in the carotid bulb. There is tortuosi ty of the distal internal carotid artery. Left carotid arterial system: The left common carotid artery is widely patent, as are the left internal affairs commander al and external carotid arteries. Calcified plaque is noted in the carotid bulb. Vertebral arteries: The vertebral arteries are patent bilaterally noting left-sided dominance. The ri ght vertebral artery is diminutive and may terminate as the PICA. Subclavian arteries: Widely patent bilaterally. Intracranial vasculature: The internal carotid arteries are patent at the skull base, as are the ante rior and middle cerebral arteries bilaterally. The vertebrobasilar system and posterior cerebral lyric stephen are patent. The right P1 segment is diminutive. The left vertebral artery is dominant. There is no aneurysm, high-grade stenosis, or focal vessel cut off seen throughout the intracranial circulatio n. Jugular veins: Patent bilaterally. Dural sinuses: Patent. Lung apices: An endotracheal tube terminates above the aristeo. There are large left and small right p leural effusions with associated consolidation. Soft tissues: Layering fluid is noted throughout the pharynx. The visualized pharyngeal soft tissues are otherwise grossly unremarkable noting angiographic phase technique. The oropharyngeal airway appe ars widely patent. The salivary and thyroid glands are normal in appearance. No cervical lymphadenopa thy is seen. Skeletal structures: Skeletal structures are osteopenic. The calvarium appears intact. The cervical s pine is maintained noting advanced multilevel spondylosis with multilevel acquired compromise the mae tral canal. No lytic or blastic lesion is seen. Orbits: The bony orbits are intact. There is bilateral proptosis. Bilateral ocular lens implants are noted. Sinuses and mastoids: Moderate mucosal thickening is noted in the ethmoid sinuses. Mild mucosal thick ening is seen in the maxillary antra and the sphenoid sinuses. There is trace fluid in the left maxil anamika antrum. There are trace mastoid effusions. IMPRESSION: 1. There is no hemorrhage, mass effect, or evidence of acute territorial ischemia by CT criteria noti ng angiographic phase technique. 2. Unremarkable CT angiogram of the neck. 3. Unremarkable CT angiogram of the brain. 4. Large left and small right pleural effusions with associated consolidation. 5. Additional findings as above. ACT 112: Negative or not required by law. Electronically signed by: Tony Coto M.D. 11/08/2019 9:34 AM
[2019-11-08 10:03] LABS: Potassium 4.3 mmol/L (3.5-5.1)
--- NOTE | 2019-11-08 10:13 | History & Physical Report ---
Date of Service November 08, 2019 Assessment & Plan (1) Acute respiratory failure: Patient presented in the obtunded state [facility] with gurgling respirations and concern he is not protecting his airway. Venous blood gas showed a pH of 7.27 a PCO2 of 52. Patient was intubated in the emergency department without incident he is currently ventilated with appropriate oxygen saturations repeat ABG is not been checked. Chest x-ray shows the ET tube 2.7 cm above the aristeo his left lung has opacity from apex to base which is likely layering pleural effusion. CT scan cannot rule out consolidation in the patient recently was treated for Klebsiella pneumonia. Patient is on ertapenem and will be given vancomycin by consultation at this time pending a MRSA nasal swab (2) Hepatic encephalopathy: Reportedly patient's had a significant issue with his liver from about February 2019 where he is been in and out of [facility] and also [facility]. Most recently discharged from [facility] after a bout of Klebsiella pneumonia. Family states he has had a recent paracentesis of 6 L which fluid analyzed without evidence of infection. Subsequently patient was sent from there to the [facility] where he decompensated presents here. On presentation his ammonia was 200. Family is unclear whether he is been having bowel movements but they do believe he was ordered and is was on his medical administration record of lactulose and Xifaxan. Patient will have an OG tube placed and these medications will be administered On presentation the patient is discriminant function is calculated to be 9.8 is meld score is calculated to be 16 both are favorable for this patient as he does have a longstanding history of alcohol abuse Patient has his diuretics held at time of presentation (3) Pleural cavity effusion: Will effusion likely may be extension of his ascitic fluid as he is large ascites in his abdomen. Pulmonary consultation via intensive care medicine will consider whether this will need to be removed and analyzed. There could be a consideration this could be a parapneumonic effusion from his recent gram- negative pneumonia (4) Cirrhosis: As mentioned above secondary to alcohol patient will be continued on lactulose. He typically is on 15 4 times daily he will be on 30 twice daily and Xifaxan will be twice daily also. Spironolactone and Lasix are currently being held (5) COPD (chronic obstructive pulmonary disease): Family conference patient suffers from COPD typically on fluticasone furoate Vilanterol, and Incruse Ellipta. These are held at this time and he is on duo nebs via the ventilator. Additionally he was on steroid taper at rehab. This was at 30 mg a day. At this time he will have 24 hours of hydrocortisone to 50 every 8 and resume prednisone on 09 November at 20 mg a day via OG tube or p.o. (6) BPH (benign prostatic hyperplasia): Fully catheter was placed patient typically is on Flomax (7) GERD (gastroesophageal reflux disease): PPI be held and Pepcid to be utilized (8) Open wound of left foot: Patient is been nursing an open wound in his left foot for some time. He previously has had bones removed according to his family for osteomyelitis secondary to a crush injury that occurred at work. Patient is missing the fourth and fifth toe on the right foot and the fourth toe on the left foot he has a 50c sized open wound on the dorsum of his left foot that goes down to the fatty tissue. CT scan will be undertaken on presentation look for osteomyelitis and wound will be cultured and he is on vancomycin. If needed podiatry orthopedic consult could be undertaken (9) DVT prophylaxis: Patient has elevated INR to 1.3 in presentation SCDs abuse for DVT pre vention consideration chemoprophylaxis will be discussed with primary ICU team History of Present Illness Primary Care Provider: NO PCP 58-year-old gentleman with a history of alcoholic cirrhosis, recurrent foot infections with a recent hospitalization for encephalopathy treated at that time for Klebsiella pneumonia coming today from the [facility] for you to change in mental status overnight. Patient evidently per report from the facility was hospitalized at [facility] for recurrent diabetic foot ulcer as well as encephalopathy. Was on ertapenem at that time. He had a paracentesis at [place] for 6 L of fluid removed. Evidently there is been some issues at home prior to his hospitalizations with him affording rifaximin they believe the cause of his mental status change was related to that previously. Patient did have a Klebsiella pneumonia that he was treated for as well. Does have a reported underlying history of COPD as well. Facility states that at some point overnight his mental status change. They noted rounding around 6-6 30a this morning that he had gurgling breathing sounds and a code was called to their facility. He was brought here for further care. He was unresponsive for them and did not respond to painful stimuli. EMS reported mildly elevated glucose in the 120s. Upon arrival here he will occasionally move the upper extremities but not following commands. Eyes are roving. Nonverbal. He is unable provide significant history. Allergies Allergy/AdvReac Type Severity Reaction Status Date / Time adhesive tape Allergy Unknown Unknown Unverified 11/08/19 08:48 Cephalosporins Allergy Unknown Unknown Unverified 11/08/19 08:48 ciprofloxacin Allergy Unknown Unknown Unverified 11/08/19 08:48 linezolid Allergy Unknown Unknown Unverified 11/08/19 08:48 Penicillins Allergy Unknown Unknown Unverified 11/08/19 08:48 vancomycin Allergy Unknown Unknown Unverified 11/08/19 08:48 Home Medications Home Medications Medication Instructions Recorded Confirmed Type acetaminophen [Tylenol] 650 mg PO QID PRN 11/08/19 11/08/19 History albuterol sulfate 2 puff INHALATION Q6 PRN 11/08/19 11/08/19 History atorvastatin 20 mg PO HS 11/08/19 11/08/19 History bisacodyl 10 mg UT DAILY PRN 11/08/19 11/08/19 History collagenase clostridium histo. 1 applic TOPICAL DAILY 11/08/19 11/08/19 History [Santyl] cyanocobalamin (vitamin B-12) 500 mcg PO QAM 11/08/19 11/08/19 History dextromethorphan-guaifenesin 10 ml PO Q6H PRN 11/08/19 11/08/19 History docusate sodium 100 mg PO BID 11/08/19 11/08/19 History fluticasone furoate-vilanterol 1 inh INHALATION QAM 11/08/19 11/08/19 History furosemide 40 mg PO BID 11/08/19 11/08/19 History gabapentin 100 mg PO TID 11/08/19 11/08/19 History lactulose 15 ml PO QID 11/08/19 11/08/19 History lidocaine [Lidoderm] 2 patch TOPICAL QAM 11/08/19 11/08/19 History magnesium hydroxide [Milk of 30 ml PO DAILY PRN 11/08/19 11/08/19 History Magnesia] nystatin 1 applic TOPICAL QID 11/08/19 11/08/19 History pantoprazole 40 mg PO QAM 11/08/19 11/08/19 History polyethylene glycol 3350 [Miralax] 17 g PO QDL PRN 11/08/19 11/08/19 History prednisone 30 mg PO QAM 11/08/19 11/08/19 History rifaximin [Xifaxan] 550 mg PO BID 11/08/19 11/08/19 History sennosides-docusate sodium 1 tab-cap PO QDL PRN 11/08/19 11/08/19 History [Senokot-S] sodium phosphates [Fleet Enema] 133 ml UT DAILY PRN 11/08/19 11/08/19 History spironolactone 100 mg PO BID 11/08/19 11/08/19 History sucralfate 1 g PO QAM 11/08/19 11/08/19 History tamsulosin 0.4 mg PO QAM 11/08/19 11/08/19 History thiamine HCl (vitamin B1) 100 mg PO QAM 11/08/19 11/08/19 History umeclidinium [Incruse Ellipta] 1 inh INHALATION QAM 11/08/19 11/08/19 History zinc sulfate 220 mg PO QAM 11/08/19 11/08/19 History Past Med/Surg History Social History Smoking Status: Unknown if ever smoked Feels Safe at Home: Declines to Answer Review of Systems Review of Systems: Unobtainable due to endotracheal tube Physical Exam Physical Exam: The patient appeared obtunded and ventilated Vital signs as documented. Head exam is normocephalic atraumatic sclera are injected there is no icterus Neck is difficult to assess for JVD patient has a [place], trachea is midline, no thyromegaly Lungs are coarse breath sounds bilaterally Cardiac exam, Rhythm is regular.. No murmurs, rubs or gallops. Abdominal exam reveals to bring distended abdomen with an umbilical hernia definitely dull with fluid wave Extremities are edematous and discolored bilaterally right foot is missing toes 4 and 5 left foot is missing toes 5 there is a 3 to 4 cm open wound on the dorsum of his left foot which is down to the fatty tissue tendons were not exposed at this time Neurologic exam is obtunded and sedated Skin is to try go to his body folds, chronic discoloration of his lower extremities Results & Data Results & Data ([facility]) Vital Signs (Past 12 Hours) Vital Signs Temp Pulse Resp BP Pulse Ox 11/08/19 09:38 70 124/70 98 11/08/19 09:36 73 98 11/08/19 09:35 73 97 11/08/19 09:30 73 97 11/08/19 09:23 74 141/65 H 99 11/08/19 09:20 76 95 11/08/19 08:40 81 100 11/08/19 08:39 80 180/74 H 99 11/08/19 08:31 83 173/77 H 100 11/08/19 08:30 84 98 11/08/19 08:27 85 187/75 H 100 11/08/19 08:20 82 100 11/08/19 08:16 85 180/78 H 100 11/08/19 08:10 84 100 11/08/19 08:09 82 195/75 H 100 11/08/19 08:00 85 100 11/08/19 07:50 84 100 11/08/19 07:40 85 16 98 11/08/19 07:32 93 H 23 177/105 H 93 11/08/19 07:30 74 16 100 11/08/19 07:23 75 15 100 11/08/19 07:10 77 17 96 11/08/19 07:07 81 18 112/70 96 11/08/19 06:53 96.4 F L 84 14 112/[address] head 11/08/2019-no hemorrhage mass-effect or acute territorial ischemia CT angiogram head/neck 11/08/[address] angiogram of head and neck CT angiogram of chest 11/08/2019no PE. Large left and trace right pleural effusion with dense bibasilar atelectasis possible consolidation, cirrhosis and ascites are noted PG Care Time/CCT Total # of Minutes Spent Total Time Spent with Patient: Total time spent is greater than 50% in coordination of care (as documented) at patient's floor/unit and/or counseling patient: Coding Level of Care Code 84651 Initial Inpt Care Lvl 3 Diagnoses Acute respiratory failure J96.00 Hepatic encephalopathy K72.90 Pleural cavity effusion J90 Cirrhosis K74.60 COPD (chronic obstructive pulmonary disease) J44.9 BPH (benign prostatic hyperplasia) N40.0 GERD (gastroesophageal reflux disease) K21.9 Open wound of left foot S91.302D Encounter type: subsequent encounter DVT prophylaxis Z29.9 (1) Open wound of left foot Encounter type: subsequent encounter Qualified Code(s): S91.302D - Unspecifi ed open wound, left foot, subsequent encounter
[2019-11-08] MEDS ORDERED: ICU PROTOCOL FOR HYPERGLYCEMIA PRN (12:21)
[2019-11-08] MEDS ORDERED: HYDROCORTISONE SOD SUCCINATE 100 MG/2 ML VIAL IV SCH (12:21)
[2019-11-08] MEDS ORDERED: DEXTROSE 50% 50 ML SYRINGE IV PRN (12:21)
[2019-11-08] MEDS ORDERED: CARBOHYDRATES FOR HYPOGLYCEMIA PO PRN (12:21)
[2019-11-08] MEDS ORDERED: GLUCOSE 40% GEL 15 GM TUBE PO PRN (12:21)
[2019-11-08] MEDS ORDERED: GLUCOSE 10 TABS/TUBE PO PRN (12:21)
[2019-11-08] MEDS ORDERED: VANCOMYCIN CONSULT ACTIVE PRN (12:21)
[2019-11-08] MEDS ORDERED: GLUCAGON FOR INJ 1 MG VIAL SQ PRN (12:21)
[2019-11-08] MEDS ORDERED: ICU ELECTROLYTE REPLACEMENT PROTOCOL PRN (12:21)
[2019-11-08] MEDS ORDERED: INSULIN ASPART 100 UNITS/ML 3 ML PEN SC SCH (12:21)
[2019-11-08] MEDS ORDERED: Nursing to Pharmacy Communication SCH ×2 (12:30→15:45)
[2019-11-08] MEDS: ALBUT/IPRATROP 3MG/0.5MG NEB 3 ML VIAL NEB SCH ×3 (12:46→19:43)
[2019-11-08] MEDS ORDERED: ALBUMIN 25% 50 ML IV ONE ×2 (13:07→23:35)
[2019-11-08] MEDS: propofoL 1,000 MG/100 ML VIAL IV SCH ×3 (13:12→23:06)
[2019-11-08] MEDS: SODIUM CHLORIDE 0.9% 1000ML 1,000 ML IV SCH (13:13)
--- NOTE | 2019-11-08 13:24 | Electrocardiogram Report ---
Test Reason : Blood Pressure : / mmHG Vent. Rate : 083 BPM Atrial Rate : 083 BPM P-R Int : 178 ms QRS Dur : 096 ms QT Int : 374 ms P-R-T Axes : 045 009 046 degrees QTc Int : 439 ms Sinus rhythm with occasional Premature ventricular complexes Otherwise normal ECG No previous ECGs available Confirmed by Gareth Gatica ([id number]) on 11/08/2019 1:24:13 PM Referred By: REFERRED SELF Confirmed By:Gareth Gatica
[2019-11-08] MEDS ORDERED: ATROPINE SULFATE 0.1 MG/ML 10ML SYR IV ONE (13:26)
[2019-11-08] MEDS ORDERED: MIDAZOLAM HCL 1 MG/ML 2ML VIAL IV PRN (13:29)
[2019-11-08] MEDS ORDERED: fentaNYL citrate 100 MCG/2 ML VIAL IV PRN (13:29)
--- NOTE | 2019-11-08 13:30 | Critical Care Consultation ---
Date of Consultation November 08, 2019 Assessment & Plan (1) Altered mental status: Impression: 58-year-old male with history of alcoholic cirrhosis admitted with profound exacerbation of his hepatic encephalopathy. The etiology is somewhat unclear. He was in a care facility so dietary indiscretion and noncompliance with medication seems less likely. No signs of GI bleeding to account for markedly increased ammonia level. Underlying infection remains a possibility. Recommendations: 1. Neurologic: Acute hepatic encephalopathy: Continue lactulose and rifaximin. May need to increase lactulose dose based on bowel movements. We will try and titrate to 2-3 bowel movements per day. Recheck ammonia level in the morning. For now we will continue sedation with propofol although the patient has had some intermittent bradycardia and hypotension so transition to fentanyl and Versed may be more appropriate. Extensive imaging performed demonstrated no acute abnormality. We will hold on any additional neurological evaluation or testing pending improvement in the patient's ammonia levels. 2. Cardiovascular: Patient initially was hemodynamically stable although since arriving in the ICU has had issues with bradycardia and hypotension. He is receiving albumin support currently. Lactate was normal which is reassuring. Will use atropine as needed and transition to fentanyl and Versed to see if this improves his bradycardia and hypotension. If not, he may require central venous access and arterial line placement. Hold diuretics for now. He is receiving crystalloid which is at high risk of third spacing. Albumin support for now. 3. Pulmonary: Acute hypercarbic respiratory failure based on blood gas. Secondary to hepatic encephalopathy. Likely has some degree of underlying sleep disordered breathing as well which could be contributing. Continue mechanical ventilation for now. Follow-up blood gas. Chart relates a history of obstructive lung disease although he is not bronchospastic currently and would agree with decreasing steroids. Prednisone will be discontinued. Continue stress dose hydrocortisone for now. Continue bronchodilators as needed. Sue ent does have significant pleural effusion. He will undergo ultrasound-guided catheter thoracentesis on the left to exclude potential spontaneous bacterial pleuritis or potential complication of his previous pneumonia. Will obtain records from [place] as well. 4. Renal: Creatinine upper limits of normal. Unclear baseline. Will follow urine output electrolytes and acid-base status. Again holding diuresis in light of soft blood pressure. Follow-up blood gas in 1 to 2 hours to ensure that his respiratory acidosis is improving. Initiate electrolyte replacement protocols 5. GI: Alcoholic cirrhosis. Treatment for encephalopathy as noted above. If the patient decompensates further, could consider GI consultation. Will perform paracentesis to rule out peritonitis as a potential etiology for his decompensation as well. Keep n.p.o. for now but if looks like he will be intubated more than 24 hours would have low threshold for initiation of enteric tube feeding. 6. ID: The patient has a foot ulcer and apparently was on ertapenem previously. He is also at risk for bacterial peritonitis and spontaneous bacterial pleuritis. We will continue ertapenem for now. Await imaging of the foot and potential orthopedics/podiatry consultation. May need to add gram-positive coverage for resistant organisms but with the patient's allergies to vancomycin, penicillins, and linezolid, options at this point time would be ceftaroline or daptomycin. Will await cultures clinical response and imaging studies. Trend fever curve and white blood cell count. He is mildly hypothermic and is undergoing passive external rewarming currently. He may require ID input. Wound consult will be obtained for his foot 7. Endocrine: Decreasing steroids for stress response at this point time. Gl ycemic control per ICU protocol. No prior history of diabetes. 8. Morbid obesity. This complicates the patient's care especially given his underlying diagnosis of cirrhosis. Long-term weight management will need to be discussed with the patient once he is able. Patient is and is critically ill at this point time with significant possibility of clinical deterioration. He has multiple organ systems which are underperforming are failing. Discussed with the patient's sister and . They expressed understanding. Consent were obtained for procedures. A total of 79 minutes critical care time in evaluation management stabilization of this patient exclusive of procedure. (2) Hepatic encephalopathy: (3) Pleural cavity effusion: (4) Cirrhosis: History of Present Illness Attending Physician: Marco Coon MD History of Present Illness Asked by Dr. Alcantar to assist in management of this patient admitted with profound hepatic encephalopathy requiring intubation mechanical ventilation. History is obtained from discussion with the hospitalist, the patient's , and review the electronic medical record. The patient is intubated and sedated and unable to provide any history. Patient is a 58-year-old male with a history of alcoholic cirrhosis. He recently was admitted to [facility] due to diabetic foot ulcers as well as encephalopathy. It appears he was discharged on ertapenem. He was discharged to . He has a history of Klebsiella pneumonia that he was treated for in [place] recently as well. Patient was brought to the [facility] emergency room due to being found altered. He was intubated on arrival due to low GCS. Laboratory values revealed mild metabolic acidosis and an ammonia level of over 200. The patient reportedly was on lactulose and rifaximin. There are no other new infectious symptoms that I can uncover. The patient does have a significant foot ulcer. He was admitted by the hospitalist. CT of the foot were obtained to evaluate for osteomyelitis. He had extensive CTs of the brain revealing no acute abnormality and was admitted to the ICU for additional management. He has been hemodynamically stable. He did receive ertapenem and was ordered vancomycin although he has an allergy to vancomycin penicillin and will nasal lead. We do not have records yet available from [place] regarding his recent hospitalization. Allergies Allergy/AdvReac Type Severity Reaction Status Date / Time adhesive tape Allergy Unknown Unknown Unverified 11/08/19 08:48 Cephalosporins Allergy Unknown Unknown Unverified 11/08/19 08:48 ciprofloxacin Allergy Unknown Unknown Unverified 11/08/19 08:48 linezolid Allergy Unknown Unknown Unverified 11/08/19 08:48 Penicillins Allergy Unknown Unknown Unverified 11/08/19 08:48 vancomycin Allergy Unknown Unknown Unverified 11/08/19 08:48 Home Medications Home Medications Medication Instructions Recorded Confirmed Type acetaminophen [Tylenol] 650 mg PO QID PRN 11/08/19 11/08/19 History albuterol sulfate 2 puff INHALATION Q6 PRN 11/08/19 11/08/19 History atorvastatin 20 mg PO HS 11/08/19 11/08/19 History bisacodyl 10 mg SD DAILY PRN 11/08/19 11/08/19 History collagenase clostridium histo. 1 applic TOPICAL DAILY 11/08/19 11/08/19 History [Santyl] cyanocobalamin (vitamin B-12) 500 mcg PO QAM 11/08/19 11/08/19 History dextromethorphan-guaifenesin 10 ml PO Q6H PRN 11/08/19 11/08/19 History docusate sodium 100 mg PO BID 11/08/19 11/08/19 History fluticasone furoate-vilanterol 1 inh INHALATION QAM 11/08/19 11/08/19 History furosemide 40 mg PO BID 11/08/19 11/08/19 History gabapentin 100 mg PO TID 11/08/19 11/08/19 History lactulose 15 ml PO QID 11/08/19 11/08/19 History lidocaine [Lidoderm] 2 patch TOPICAL QAM 11/08/19 11/08/19 History magnesium hydroxide [Milk of 30 ml PO DAILY PRN 11/08/19 11/08/19 History Magnesia] nystatin 1 applic TOPICAL QID 11/08/19 11/08/19 History pantoprazole 40 mg PO QAM 11/08/19 11/08/19 History polyethylene glycol 3350 [Miralax] 17 g PO QDL PRN 11/08/19 11/08/19 History prednisone 30 mg PO QAM 11/08/19 11/08/19 History rifaximin [Xifaxan] 550 mg PO BID 11/08/19 11/08/19 History sennosides-docusate sodium 1 tab-cap PO QDL PRN 11/08/19 11/08/19 History [Senokot-S] sodium phosphates [Fleet Enema] 133 ml SD DAILY PRN 11/08/19 11/08/19 History spironolactone 100 mg PO BID 11/08/19 11/08/19 History sucralfate 1 g PO QAM 11/08/19 11/08/19 History tamsulosin 0.4 mg PO QAM 11/08/19 11/08/19 History thiamine HCl (vitamin B1) 100 mg PO QAM 11/08/19 11/08/19 History umeclidinium [Incruse Ellipta] 1 inh INHALATION QAM 11/08/19 11/08/19 History zinc sulfate 220 mg PO QAM 11/08/19 11/08/19 History Patient History Social History Smoking Status: Unknown if ever smoked Feels Safe at Home: Declines to Answer Review of Systems Review of Systems: Unobtainable due to endotracheal tube and Unobtainable due to reduced consciousness Physical Exam Constitutional: + morbidly obese and + mechanically ventilated Intubated and sedated Eyes: Scleral icterus. Pupils reactive. Endotracheal tube and orogastric tube in position Neck: trachea midline, no thyromegaly Respiratory: normal respiratory effort Decreased breath sounds on the left. No wheezing. Few scattered rales Cardiovascular: RRR, no murmur, no edema Gastrointestinal (Abdomen): normal bowel sounds, soft, nontender, no hepatosplenomegaly Fluid wave present Musculoskeletal: Extremities: extremities normal to inspection Skin: Multiple petechiae and telangiectasia with some caput medusa Neurologic: Nonfocal exam Lymphatic: no cervical lymphadenopathy Results & Data Results & Data ([facility]) Vital Signs (Past 12 Hours) Vital Signs Temp Pulse Resp BP Pulse Ox 11/08/19 13:03 34.3 C L 43 L 78/33 L 100 11/08/19 13:00 34.3 C L 42 L 100 11/08/19 12:33 34.4 C L 51 L 101/51 L 98 11/08/19 12:30 34.4 C L 47 L 99 11/08/19 12:10 59 L 23 100 11/08/19 12:07 34.4 C L 56 L 18 101/51 L 98 11/08/19 12:03 34.5 C L 56 L 132/73 100 11/08/19 12:00 34.5 C L 56 L 100 11/08/19 11:10 66 99 11/08/19 11:01 56 L 99 11/08/19 11:00 55 L 118/67 99 11/08/19 10:50 57 L 99 11/08/19 10:46 62 123/68 99 11/08/19 10:40 61 99 11/08/19 10:31 60 98 11/08/19 10:30 64 127/77 98 11/08/19 10:20 59 L 98 11/08/19 10:15 61 123/65 99 11/08/19 10:14 61 114/60 98 11/08/19 10:10 62 98 11/08/19 10:01 64 119/48 L 99 11/08/19 10:00 65 99 11/08/19 09:50 67 99 11/08/19 09:46 70 124/67 98 11/08/19 09:40 72 99 11/08/19 09:39 72 97 11/08/19 09:38 70 124/70 98 11/08/19 09:36 73 98 11/08/19 09:35 73 97 11/08/19 09:30 73 97 11/08/19 09:23 74 141/65 H 99 11/08/19 09:20 76 95 11/08/19 08:40 81 100 11/08/19 08:39 80 180/74 H 99 11/08/19 08:31 83 173/77 H 100 11/08/19 08:30 84 98 11/08/19 08:27 85 187/75 H 100 11/08/19 08:20 82 100 11/08/19 08:16 85 180/78 H 100 11/08/19 08:10 84 100 11/08/19 08:09 82 195/75 H 100 11/08/19 08:00 85 100 11/08/19 07:50 84 100 11/08/19 07:40 85 16 98 11/08/19 07:32 93 H 23 177/105 H 93 11/08/19 07:30 74 16 100 11/08/19 07:23 75 15 100 11/08/19 07:10 77 17 96 11/08/19 07:07 81 18 112/70 96 11/08/19 06:53 35.8 C L 84 14 112/70 97 Laboratory Results 11/08/19 07:47 11/08/19 09:35 Ammonia level greater than 200 Lactate normal Venous blood gas showed a pH 7.27 with a PCO2 of 52 and a PO2 of 68 Lab values showed a sodium 134 potassium 4.1 chloride 106 bicarb 22 BUN 56 and creatinine of 1.24 with a glucose of 104. Ionized calcium was 1.10. Total bili 1.5. Alk phos 155. Troponin negative. Albumin 1.8. TSH 6.82 Coding Level of Care Code Critical Care ea addt'l 30 min Diagnoses Altered mental status R41.82 Altered mental status type: unspecified Hepatic encephalopathy K72.90 Pleural cavity effusion J90 Cirrhosis K74.60 Time Spent (min) 79 (1) Altered mental status Altered mental status type: unspecified Qualified Code(s): R41.82 - Altered mental status, unspecified
[2019-11-08 13:35] LABS: Glucose Pleural Fluid 123 mg/dl
[2019-11-08] MEDS: RIFAXIMIN 550 MG TABLET NG SCH ×2 (13:41→21:53)
--- NOTE | 2019-11-08 13:41 | CT Scan Report ---
CT SCAN OF THE LEFT FOOT WITHOUT IV CONTRAST CLINICAL HISTORY: Draining wound. COMPARISON STUDY: No priors. TECHNIQUE: CT scan of the left foot is performed from the distal tibia and fibula to the base of the foot. Images are reviewed in the axial, sagittal, and coronal planes. IV contrast was not administere d for this examination. A dose lowering technique was utilized adhering to the principles of ALARA. N ote that interpretation is significantly suboptimal without plain film correlate. CT DOSE: 167.97 mGy.cm FINDINGS: The skeletal structures are heterogeneously osteopenic. No acute fracture is identified. Th e distal tibia and fibula are intact. The ankle mortise is maintained. Mild benign appearing periosti tis is noted along the distal fibular shaft. The heads and distal shafts of the second and third meta tarsals are not identified and may be surgically absent. Bony irregularity is seen at the base of the third proximal phalanx. No additional foci of bony destruction are suggested. No erosive disease is clearly identified. There is subluxation at the third proximal interphalangeal joint. Several hammert oe deformities are suggested. Degenerative spurring is seen along the dorsal aspect of the tarsal bon es. An os trigonum is incidentally noted. Osteoarthritic change is seen throughout the foot. Suspect hallux valgus. There is diffuse soft tissue edema identified throughout the foot, greatest dorsally a nd in the forefoot. Subcutaneous fluid is noted. No organized fluid collection is clearly identified. There is fatty atrophy of the regional musculature. IMPRESSION: 1. There is diffuse soft tissue edema identified along the dorsal aspect of the foot and in the foref oot. Correlate clinically for evident of cellulitis. 2. There is subcutaneous fluid with no organized fluid collection clearly identified. 3. The heads and distal shafts of the second and third metatarsals are not identified and presumed mcintosh rgically absent. Correlation with a surgical history will be required. 4. No acute fracture is identified. 5. Bony irregularity is seen at the base of the third proximal phalanx. This is nonspecific and could be on a postoperative or degenerative basis. Osteomyelitis would be impossible to exclude, and clini byron correlation will be required. 6. No additional foci of destructive change or bony erosion are suggested throughout the foot. 7. Osteopenia and degenerative change as above. ACT 112: Negative or not required by law. Dictated: 11/08/2019 11:54 AM Transcribed: 11/08/2019 1:27 PM Erin [id number] [email or web address] Electronically signed by: Tony Coto M.D. 11/08/2019 1:40 PM
[2019-11-08] MEDS: FAMOTIDINE 20 MG in SYRINGE 3 ML IV SCH ×2 (13:42→21:54)
[2019-11-08] MEDS: LACTULOSE SYRUP 30 GM/45 ML UDP PO SCH ×2 (13:42→21:53)
[2019-11-08 13:45] LABS: LDH Pleural Fluid 54 U/L; Total Protein Pleural Fluid 0.9 g/dl
--- NOTE | 2019-11-08 13:46 | Procedure Note ---
Procedure Note Date of Service November 08, 2019 Procedure: Diagnostic therapeutic ultrasound-guided catheter thoracentesis C T Tech: Dr. Magnus Mayorga Indication: Pleural effusion Consent: Signed by patient and verified with timeout prior to procedure Anesthesia: 8 mL's 1% lidocaine without epinephrine local. Procedure: Consent was verified and timeout performed. Appropriate imaging studies were reviewed prior to the procedure. Patient was placed in a seated position and limited thoracic ultrasound was performed of the bilateral chest. No significant effusion was identified on the right however the left side did demonstrate a moderate effusion with some compressive atelectasis. See separate imaging. Site appropriate for thoracentesis was selected. The skin was prepped and draped in normal sterile fashion. Lidocaine was used for local analgesia. Fluid was aspirated via the finder needle. A small skin jane was made with the scalpel and the catheter over the needle apparatus was advanced over the rib into the pleural space. Using the syringe one-way valve system, a total of 1600 mL's of yellow slightly cloudy fluid was removed. Procedure was terminated due to inability to withdraw any additional fluid. The catheter was removed and observed to be intact. A sterile dressing was applied. Post procedure ultrasound of the chest revealed persistent lung sliding and trivial residual pleural fluid. Post procedure x-ray was reviewed and demonstrated no significant pneumothorax. Small effusion noted on the right Fluid was sent for cell count differential, Gram stain and culture, LDH, pH, total protein, glucose, and cytology. The patient tolerated the procedure well without obvious complication Coding CPT Codes Pulmonary/Thoracic - Pulmonary and Thoracic: 18271 Thoracentesis w imaging ([id number][place] [facility] [place] [facility] [place] (Charges[place] Pulmonary/Thoracic Procedure 1: Pulmonary and Thoracic: 17120 Thoracentesis w imaging
--- NOTE | 2019-11-08 13:49 | Procedure Note ---
Procedure Note Date of Service November 08, 2019 Procedure: Ultrasound guided paracentesis. Indication: Evaluate for SBP Claim Review Medical Director: Dr. Mayorga Anesthesia: Patient was maintained on propofol infusion. 5 mL's 1% lidocaine used locally. Consent: Risks and benefits were discussed with patient's who signed consent. Timeout was performed and consent verified prior to commencement of the procedure. Procedure: Patient was placed in recumbent position in the ICU. Limited abdominal ultrasound was performed which revealed significant amount of free fluid within the left lower quadrant. A site appropriate for paracentesis was marked. Skin was prepped and draped using chlorhexidine and a sterile field established. Once the field was established, a tract was anesthetized using 1% lidocaine and a Z line procedure. Ascitic fluid was aspirated by the finder needle. The finder needle was exchanged for a longer 20-gauge needle which again was passed through the abdominal wall using a Z line technique. Once peritoneal fluid was aspirated, a 60 cc syringe was used to withdraw total of about 60 cc of fairly clear yellow ascitic fluid. The needle was removed and a dressing applied. Fluid was sent for albumin, cell count differential, and blood culture bottles were inoculated at bedside. Patient tolerated the procedure well without complication. Coding CPT Codes Tubes, Drains, and Vasc Access - Tubes, Drains, and Vasc Access: [id number] Ultrasonic Guide For Needle Placement ([id number]) Abdomen - Abdominal: 60492 Abdominal Paracentesis (diagnostic or therapeutic); W/O imaging ([id number]) [facility] [place] Codes (Charges) Abdomen Abdominal: 12569 Abdominal Paracentesis (diagnostic or therapeutic); W/O imaging Tubes, Drains, and Vasc Access Procedure 2: Tubes, Drains, and Vasc Access: [id number] Ultrasonic Guide For Needle Placement
--- NOTE | 2019-11-08 13:56 | XRay Report ---
SINGLE VIEW CHEST CLINICAL HISTORY: Status post thoracentesis. FINDINGS: 2 AP, portable, upright chest radiographs are compared to chest x-ray and chest CT performe d earlier the same day 11/08/2019. The examination is degraded by portable technique and patient rotat ion. An endotracheal tube is unchanged in position. An enteric tube has been placed. The tip projects below the diaphragm and is not visualized. The cardiac silhouette is enlarged. There is pulmonary va scular congestion. There are small pleural effusions with bibasilar consolidation. The left pleural e ffusion has significantly decreased in size as compared to today's earlier examinations. No pneumotho rax is seen. The bony thorax is grossly intact. A left shoulder arthroplasty is partially imaged. Art hritic change is seen in the right shoulder. IMPRESSION: 1. Lines and tubes as above. 2. No pneumothorax is identified post procedure. 3. Cardiac enlargement with pulmonary vascular congestion. 4. Small pleural effusions with bibasilar consolidation. The left pleural effusion has significantly decreased in size from today's earlier examinations. ACT 112: Negative or not required by law. Electronically signed by: Tony Coto M.D. 11/08/2019 1:55 PM
[2019-11-08 14:15] LABS: Appearance Pleural Fluid CLOUDY; Basophils, Fluid 0 %; Color Pleural Fluid AMBER; Eosinophils, Fluid 0 %; Lymphocytes, Fluid 5 %; Mono,Macrophage,Mesothelial 86 %; Neutrophils, Fluid 9 %; RBC Pleural Fluid (A) 5000 /uL; Source Pleural Fluid LEFT LUNG; WBC Pleural Fluid (A) 294 /uL
[2019-11-08 14:17] LABS: Appearance Peritoneal Fluid CLEAR; Basophils, Fluid 0 %; Color Peritoneal Fluid YELLOW; Eosinophils, Fluid 0 %; Lymphocytes, Fluid 31 %; Mono,Macrophage,Mesothelial 59 %; Neutrophils, Fluid 10 %; RBC Peritoneal Fluid (A) < 3000 /uL; WBC Peritoneal Fluid (A) 69 /ul (0-300)
[2019-11-08 14:55] LABS: Base Excess VBG -4.7 mEq/L; Oxygen Saturation VBG 74.5 %; pH VBG 7.34 (7.36-7.41)
--- NOTE | 2019-11-08 14:55 | Procedure Note ---
Procedure Note Date of Service November 08, 2019 CENTRAL LINE PROCEDURE NOTE: Procedure: Central Line Placement Provider: Magnus Mayorga MD Indication: Central Drug Administration, Poor Venous Access, Multiple Lab Draws Necessary, etc. Anesthesia: 5 mL lidocaine 1% Site: Left subclavian Procedure was urgent. Patient intubated and sedated and unable to provide any consent. Family not immediately available. A time-out was completed verifying correct patient, procedure, site, positioning, and implants(s) or special equipment if applicable. Patients left supraclavicular and infraclavicular fossa was cleansed and draped in the typical sterile fashion using Chloraprep. Local anesthesia was obtained by instillation of lidocaine starting approximately 2 cm below the clavicle on the outer third of the clavicle. This was anesthetized down until the clavicle could be palpated with a needle. Finder needle was withdrawn. Using an 18-gauge needle, needle was passed below the clavicle and entered the jugular vein with aspiration of venous blood. Using Seldinger Technique, a guide wire was advanced through the introducer needle without resistance. The introducer needle was removed and the guidewire left in place. A small incision was made in penetrating fashion at the guide wire insertion site utilizing an 11 blade sca lpel. The dilator was advanced to the vessel without resistance. The dilator was exchanged for the triple lumen catheter which was advanced into the vessel without resistance. The guide wire was removed intact from the catheter without issue. Claves were placed on each catheter tip with confirmation of good blood flow from each lumen. Each port was easily flushed with sterile saline. Catheter was sutured in place and a Biopatch and sterile dressing were applied. Patient tolerated procedure well. No immediate complications were met. Post procedure x-ray was ordered with results pending. Coding CPT Codes Tubes, Drains, and Vasc Access - Tubes, Drains, and Vasc Access: [id number] Place catheter in vein superior or inferior vena cava ([id number]) [facility] Procedure Codes (Charges) Tubes, Drains, and Vasc Access Procedure 1: Tubes, Drains, and Vasc Access: [id number] Place catheter in vein superior or inferior vena cava
--- NOTE | 2019-11-08 15:18 | XRay Report ---
SINGLE VIEW CHEST CLINICAL HISTORY: Central venous catheter placement. FINDINGS: 2 AP, portable, supine chest radiographs are compared to chest x-rays and chest CT performe d earlier the same day 11/08/2019. The examination is degraded by portable technique and patient rotat ion. Endotracheal and enteric tubes are unchanged in position. A left subclavian central venous linda ter has been placed. The tip projects over the SVC. The cardiac silhouette is enlarged. There is pulm onary vascular congestion. There are small pleural effusions with bibasilar consolidation. No pneumo thorax is seen. The bony thorax is grossly intact. A left shoulder arthroplasty is partially imaged. Arthritic change is seen in the right shoulder. IMPRESSION: 1. Lines and tubes as above. 2. No pneumothorax is identified post procedure. 3. Cardiac enlargement with pulmonary vascular congestion. 4. Small pleural effusions with bibasilar consolidation. ACT 112: Negative or not required by law. Electronically signed by: Tony Coto M.D. 11/08/2019 3:17 PM
[2019-11-08] MEDS: HYDROCORTISONE SOD 50 MG in SYRINGE 0 ML IV SCH ×2 (15:20→21:54)
[2019-11-08] MEDS ORDERED: ROCURONIUM BROMIDE 10 MG/ML 10 ML VIAL IV ONE (16:02)
[2019-11-08] MEDS ORDERED: FUROSEMIDE 40 MG TAB PO SCH (17:00)
[2019-11-08] MEDS: DOXYCYCLINE HYCLATE 100 MG in DEXTROSE 5% 100 ML IV SCH (18:03)
[2019-11-08] MEDS: INSULIN ASPART 100 UNITS/ML 3 ML PEN SC SCH (18:08)
[2019-11-09] MEDS: INSULIN ASPART 100 UNITS/ML 3 ML PEN SC SCH ×4 (00:26→17:28)
[2019-11-09 04:29] LABS: Albumin Level 1.8 gm/dl (3.4-5.0); Bilirubin Direct 0.6 mg/dl (0-0.2); Calcium 8.1 mg/dl (8.5-10.1); Creatinine Clr Calc Pharmacy 80.8 ml/min; Est GFR (African American) 64.9; Potassium 4.8 mmol/L (3.5-5.1)
[2019-11-09 04:33] LABS: Bilirubin,Total 1.1 mg/dl (0.2-1)
[2019-11-09 04:34] LABS: Total Protein 6.4 gm/dl (6.4-8.2)
[2019-11-09 04:35] LABS: Hemoglobin 8.7 g/dL (14.0-18.0); Mean Corpuscular Hemoglobin 30.9 pg (25-34); Mean Corpuscular Hgb Conc 33.5 g/dL (32-36); Mean Corpuscular Volume 92.2 fL (80-100); Mean Platelet Volume 12.6 fL (7.4-10.4); Platelet Count 65 K/uL (130-400); RDW Coefficient of Variation 21.3 % (11.5-14.5); RDW Standard Deviation 69.9 fL (36.4-46.3); Red Blood Count 2.82 M/uL (4.7-6.1); White Blood Count 4.87 K/uL (4.8-10.8)
[2019-11-09 04:36] LABS: Anisocytosis Present; Immature Granulocytes # (auto) 0.02 K/uL (0.00-0.02); Immature Granulocytes % (auto) 0.4 %; Lymphocytes # (auto) 0.31 K/uL (1.2-3.4); Lymphocytes % (auto) 6.4 %; Monocytes % (auto) 6.2 %; Neutrophils # (auto) 4.24 K/uL (1.4-6.5); Platelet Estimate Decreased (Normal)
[2019-11-09 05:20] LABS: iSTAT Allen Test Pass; iSTAT Arterial Blood Gas HCO3 19 meg/L (19-24); iSTAT Arterial Blood Gas pCO2 30 mmHg (35-46); iSTAT Arterial Blood Gas pO2 90 mmHg (80-95); iSTAT Carbon Dioxide 19 mmol/L (24-31); iSTAT FiO2 30 %; iSTAT Site R Radial
[2019-11-09] MEDS ORDERED: MAGNESIUM SULFATE / D5W 1 GM/100 ML BAG IV ONE (05:38)
[2019-11-09] MEDS: propofoL 1,000 MG/100 ML VIAL IV SCH ×3 (05:59→23:28)
[2019-11-09] MEDS: HYDROCORTISONE SOD 50 MG in SYRINGE 0 ML IV SCH (06:00)
[2019-11-09] MEDS: DOXYCYCLINE HYCLATE 100 MG in DEXTROSE 5% 100 ML IV SCH ×2 (06:00→17:20)
[2019-11-09] MEDS: ALBUT/IPRATROP 3MG/0.5MG NEB 3 ML VIAL NEB SCH ×4 (07:24→19:10)
--- NOTE | 2019-11-09 07:36 | XRay Report ---
XR chest 1V portable CLINICAL HISTORY: Respiratory failure COMPARISON STUDY: November 08, 2019 FINDINGS: There is an endotracheal tube 4 cm above the aristeo. There is a nasogastric tube which pass es into the stomach. There is a left internal jugular central venous catheter unchanged in position. The heart remains enlarged. There is radiographic evidence of congestive failure with pulmonary edema and bilateral pleural effusions. There are associated basilar opacity statistically atelectatic.[ IMPRESSION: Cardiomegaly and radiographic evidence of pulmonary edema. Persistent bilateral pleural e ffusions with associated basilar opacities. ACT 112: Negative or not required by law. Electronically signed by: Jose Burk M.D. 11/09/2019 7:34 AM
[2019-11-09] MEDS: ERTAPENEM SODIUM 1,000 MG in SODIUM CHLORIDE 0.9% 50 ML IV SCH (07:43)
[2019-11-09] MEDS: FAMOTIDINE 20 MG in SYRINGE 3 ML IV SCH ×2 (07:44→21:08)
[2019-11-09] MEDS: RIFAXIMIN 550 MG TABLET NG SCH ×2 (07:44→21:08)
[2019-11-09] MEDS: LACTULOSE SYRUP 30 GM/45 ML UDP PO SCH ×2 (07:44→21:08)
--- NOTE | 2019-11-09 08:46 | Critical Care Progress Note ---
Date of Service November 09, 2019 Assessment & Plan (1) Altered mental status: Impression: 58-year-old male with history of alcoholic cirrhosis admitted with profound exacerbation of his hepatic encephalopathy. The etiology is somewhat unclear. He was in a care facility so dietary indiscretion and noncompliance with medication seems less likely. No signs of GI bleeding to acc ount for markedly increased ammonia level. Underlying infection remains a possibility. 24-hour events: Patient was admitted to the ICU. He underwent therapeutic and diagnostic thoracentesis as well as diagnostic paracentesis with results noted above. He had episodes of bradycardia which responded to 1 dose of atropine 0.5 mg and decrease of the propofol. His vent settings have been weaned significantly and is now down to FiO2 0.3 and PEEP of 5. Hemodynamics have re mained stable. Remains sedated on propofol Recommendations: 1. Neurologic: Acute hepatic encephalopathy: Continue lactulose and rifaximin. Ammonia level decreasing but remains elevated. Likely additional 24 hours before we can consider rate liberation from mechanical ventilation. Will perform sedation break today to assess neurological status 2. Cardiovascular: Intermittent bradycardia likely related to propofol infusion. Did receive albumin which was helpful. Continue intermittent fentanyl and Versed as needed. Volume appears up and with yazidi of blood pressure will restart diuretics in the form of Aldactone and Lasix. Follow kidney function. 3. Pulmonary: Acute hypercarbic respiratory failure based on blood gas. Secondary to hepatic encephalopathy. Likely has some degree of underlying sleep disordered breathing as well which could be contributing. Continue mechanical ventilation for now. Reported history of obstructive lung disease but not bronchospastic currently. As needed bronchodilators. Liberation from mechanical ventilation as permitted by mental status 4. Renal: Creatinine upper limits of normal. Unclear baseline. Will follow urine output electrolytes and acid-base status. Continue electrolyte replacement 5. GI: Alcoholic cirrhosis. Treatment for encephalopathy as noted above. Etiology of his decompensation somewhat unclear. Paracentesis does not appear consistent with SBP however the patient is already on broad-spectrum antibiotics for foot infection. Continue to follow for now. Will initiate trophic tube feeding as anticipate the patient would not be extubated today due to encephalopathy. 6. ID: The patient has a foot ulcer and apparently was on ertapenem previously. Gram-negative rods from the wound culture on his foot. CT findings noted. Hospitalist discussed with orthopedics. Unclear if debridement will be required. Blood cultures remain negative. He is currently day #2 ertapenem and doxycycline. Await speciation of the gram-negative marylin with sensitivities. 7. Endocrine: Decreasing steroids for stress response at this point time. Glycemic control per ICU protocol. No prior history of diabetes. 8. Heme-onc: Mild decrease in hemoglobin overnight but no evidence of ongoing bleeding. No indication for transfusion currently. Continue to trend. Platelets also decreasing. He has splenomegaly on ultrasound of the abdomen and I suspect this is sequestration. No indication for transfusion currently. Discussed with bedside critical care nurse. No family immediately available. They will be updated when available. (2) Hepatic encephalopathy: (3) Pleural cavity effusion: (4) Cirrhosis: Admission and Anticipated Discharge Date Admission Date: November 08, 2019 Subjective Patient intubated and sedated Review of Systems Review of Systems: Unobtainable due to endotracheal tube and Unobtainable due to reduced consciousness Physical Exam Constitutional: + morbidly obese and + mechanically ventilated Neck: trachea midline, no thyromegaly Respiratory: normal respiratory effort Cardiovascular: RRR, no murmur, no edema Gastrointestinal (Abdomen): normal bowel sounds, soft, nontender, no hepatosplenomegaly Musculoskeletal: Extremities: extremities normal to inspection Lymphatic: no cervical lymphadenopathy Results & Data Results & Data ([facility]) Vital Signs (Past 12 Hours) Vital Signs Temp Pulse Resp BP Pulse Ox 11/09/19 08:00 52 L 11/09/19 07:25 42 L 18 97 11/09/19 06:06 37.0 C 50 L 136/52 L 95 11/09/19 06:00 37.0 C 50 L 95 11/09/19 05:06 37.0 C 53 L 131/55 L 95 11/09/19 05:00 37.0 C 56 L 18 97 11/09/19 04:07 36.9 C 50 L 95 11/09/19 04:06 36.9 C 50 L 130/53 L 95 11/09/19 03:06 36.8 C 51 L 132/52 L 96 11/09/19 02:06 36.6 C 49 L 120/49 L 96 11/09/19 01:35 48 L 18 98 11/09/19 01:06 36.5 C 48 L 112/48 L 98 11/09/19 00:06 36.4 C L 49 L 121/52 L 98 11/08/19 23:06 36.3 C L 51 L 116/54 L 99 11/08/19 22:30 51 L 19 96 11/08/19 22:06 36.4 C L 56 L 107/48 L 95 11/08/19 21:06 36.7 C 54 L 104/50 L 99 11/08/19 21:00 36.8 C 54 L 99 Laboratory Results 11/09/19 04:01 11/09/19 04:01 11/08/19 11/08/19 08:09 14:29 VBG pH 7.27 L 7.34 L VBG pCO2 52 H 40 VBG pO2 68 44 VBG HCO3 23 21 VBG O2 Saturation 89.4 74.5 VBG Base Excess -3.9 -4.7 Most recent blood gas showed pH 7.4 with PCO2 of 30 and PO2 of 90. Calcium 8.1, phosphorus 5.0 Total bili 1.1 down from 1.5. Ammonia down to 93 from 203 Wound culture from the foot growing gram-negative rods Peritoneal fluid: Gram stain no organisms and rare white blood cells seen Peritoneal white blood cells 69 Pleural fluid: Gram stain few PMNs with no organisms pH 7.45 LDH 54 Glucose 123 Diagnostic Findings Chest x-ray from today was independently reviewed. Small bilateral pleural effusions are identified. Orogastric, endotracheal and central lines in good position. Small bilateral pleural effusions with slight pulmonary vascular congestion Coding Level of Care Code 04949 Subseq Hosp Care Lvl 3 Diagnoses Altered mental status R41.82 Altered mental status type: unspecified Hepatic encephalopathy K72.90 Pleural cavity effusion J90 Cirrhosis K74.60 (1) Altered mental status Altered mental status type: unspecified Qualified Code(s): R41.82 - Altered mental status, unspecified
[2019-11-09] MEDS: FUROSEMIDE 40 MG in SYRINGE 0 ML IV SCH (09:23)
[2019-11-09] MEDS: SPIRONOLACTONE 25 MG TAB PO SCH (09:23)
[2019-11-09] MEDS ORDERED: PEPTAMEN INTENSE VHP 1.0 CAL 1,000 ML BAG OG SCH (10:00)
--- NOTE | 2019-11-09 10:28 | Electrocardiogram Report ---
Test Reason : Blood Pressure : / mmHG Vent. Rate : 044 BPM Atrial Rate : 044 BPM P-R Int : 190 ms QRS Dur : 098 ms QT Int : 468 ms P-R-T Axes : 052 023 040 degrees QTc Int : 400 ms Marked sinus bradycardia Abnormal ECG When compared with ECG of 08-NOV-2019 07:11, Premature ventricular complexes are no longer Present Vent. rate has decreased BY 39 BPM Confirmed by Gareth Gatica ([id number]) on 11/09/2019 10:27:55 AM Referred By: REFERRED SELF Confirmed By:Gareth Gatica
--- NOTE | 2019-11-09 17:06 | Hospitalist Progress Note ---
Date of Service November 09, 2019 Assessment & Plan (1) Acute respiratory failure: With acute respiratory failure with hypercarbia Patient presented in the obtunded state from [facility] with gurgling respirations and concern he is not protecting his airway. Venous blood gas showed a pH of 7.27 a PCO2 of 52. Patient was intubated in the emergency department without incident he is currently ventilated in the ICU Chest x-ray chest x-ray with left lung layering pleural effusion. CT angiogram of the chest scan cannot rule out consolidation, but negative for PE, showed bilateral pleural effusions Now status post thoracentesis per licensed guide-cultures pending but appears transudative ABG improved today at 7.4 -On empiric antibiotics with ertapenem and doxycycline Oxygenating well on ventilator Processor Grain managing (2) Hepatic encephalopathy: Reportedly patient's had a significant issue with his liver from about February 2019 where he is been in and out of [facility] and also [facility]. Most recently discharged from [facility] after a bout of Klebsiella bacteremia from a left foot infection. Family states he has had a recent paracentesis of 6 L which fluid analyzed without evidence of in fection. Subsequently patient was sent from there to [facility] where he decompensated. On presentation his ammonia was 200 and he was found gurgling in his bed at rehab, had an absent gag reflex and no response to pain. He was intubated. Family is unclear whether he is been having bowel movements but they do believe he was ordered and is was on his medical administration record of lactulose and Xifaxan. Now with multiple bowel movements and receiving lactulose via OG tube Ammonia level now down to 93 and is opening eyes and somewhat alert on a sedation holiday from propofol this afternoon On presentation the patient is discriminant function is calculated to be 9.8 is meld score is calculated to be 16 both are favorable for this patient as he does have a longstanding history of alcohol abuse Patient has his diuretics held at time of presentation-now diuretics to be restarted -Continue lactulose, rifaximin -Follows with hepatology at [place] -Is on IV hydrocortisone here for stress dose steroids and it appears he had been on prednisone prior to admission-unclear if this was for respiratory reasons or hepatic reasons -Follow ammonia level (3) Pleural cavity effusion: Will effusion likely may be extension of his ascitic fluid as he is large ascites in his abdomen. Transudative but cultures pending Follow with chest x-ray (4) Cirrhosis: Alcoholic cirrhosis with history of esophageal varices and portal hypertension -Continue medications as above and follow-up with hepatology Had paracentesis, continue IV albumin -Restarting diuretics (5) COPD (chronic obstructive pulmonary disease): No acute issues -Continue albuterol neb 4 times daily On doxycycline and ertapenem in case of pneumonia -Restart home inhalers once extubated (6) BPH (benign prostatic hyperplasia): Fully catheter was placed patient typically is on Flomax (7) GERD (gastroesophageal reflux disease): PPI be held and Pepcid to be utilized intravenously (8) Open wound of left foot: Patient is been nursing an open wound in his left foot for some time. He previously has had bones removed according to his family for osteomyelitis s econdary to a crush injury that occurred at work. Patient is missing the fourth and fifth toe on the right foot and the fourth toe on the left foot he has a 3 x 5 cm open wound on the dorsum of his left foot that goes down to the fatty tissue. CT scan of the foot suspicious for osteomyelitis of the third proximal phalanx Wound culture growing gram-negative rods -Follow wound and blood cultures -Continue ertapenem, doxycycline Consider orthopedic surgery and/or podiatry consultation Has severe neuropathy (9) Ascites: As above, status post paracentesis No evidence of SBP Follow cultures (10) Pancytopenia: Secondary to cirrhosis of liver Follow CBC (11) Neuropathy: Severe in bilateral lower extremities -Typically is on gabapentin for this -Restart gabapentin once more awake and alert (12) Barretts esophagus: Continue antacid (13) Hyperlipidemia: -Holding home statin for now (14) DVT prophylaxis: SCDs Consider adding on heparin SQ-defer to licensed guide FEN: Has been started on tube feeds today, receiving normal saline at 40 mL's per hour, follow BMP Disposition-continued stay in the ICU Admission and Anticipated Discharge Date Admission Date: November 08, 2019 Subjective Patient remains intubated, but has been on a sedation break from propofol and has his eyes open and tracks me in the room but then falls back to sleep. He was not ready for extubation yet today. His is at the bedside. No other significant overnight events. She reports he has been dealing with neuropathy of the feet with wound vacs and IV antibiotics off and on for 12 years. Telemetry with sinus bradycardia normal sinus rhythm Review of Systems Review of Systems: Unobtainable due to endotracheal tube and Unobtainable due to reduced consciousness He has been having multiple loose bowel movements all day as per nursing Physical Exam Constitutional: + ill appearing (Chronically), + obese, + mechanically ventilated and + edematous; no acute distress and + not healthy appearing Eyes: + anicteric sclerae ENMT: ET tube in place Neck: trachea midline, no thyromegaly Respiratory: normal respiratory effort, lungs clear to auscultation Cardiovascular: Rate/Rhythm: regular rate and regular rhythm Heart Sounds: no murmur Extremities: + edema (2+ pitting edema in the lower extremities bilaterally and 1+ in the upper extremities) and + vascular access device (Left subclavian central venous catheter in place) Gastrointestinal (Abdomen): Inspection/Auscultation: + abdomen distended (Mild) and normal bowel sounds Percussion/Palpation: abdomen soft; abdomen nontender Musculoskeletal: Extremities: + extremities abnormal to inspection (Bilateral Charcot appearing feet, left dorsal foot with large open wound with exudate, no surrounding erythema, serous drainage, 3 x 5 cm) Neurologic: Has his eyes open briefly and tracks but then falls back asleep Has some restlessness of bilateral legs and arms Lymphatic: no lymphedema Results & Data Results & Data ([facility]) Vital Signs (Past 12 Hours) Vital Signs Temp Pulse Resp BP Pulse Ox 11/09/19 16:00 63 142/69 H 97 11/09/19 15:15 57 L 18 96 11/09/19 15:00 57 L 97 11/09/19 14:00 60 97 11/09/19 13:55 59 L 18 97 11/09/19 13:00 61 98 11/09/19 12:06 51 L 142/51 H 97 11/09/19 12:00 36.7 C 55 L 98 11/09/19 11:39 57 L 158/58 H 97 11/09/19 11:25 62 24 97 11/09/19 11:07 36.3 C L 55 L 145/57 H 97 11/09/19 11:00 36.3 C L 54 L 97 11/09/19 10:06 36.3 C L 54 L 123/49 L 96 11/09/19 10:00 36.3 C L 52 L 96 11/09/19 09:06 36.3 C L 61 152/64 H 97 11/09/19 09:00 36.3 C L 56 L 97 11/09/19 08:06 36.2 C L 53 L 143/61 H 96 11/09/19 08:00 36.1 C L 49 L 98 11/09/19 07:53 36.2 C L 54 L 151/56 H 98 11/09/19 07:25 42 L 18 97 11/09/19 07:19 36.3 C L 46 L 141/58 H 97 11/09/19 07:15 36.3 C L 45 L 138/54 L 96 11/09/19 07:06 36.4 C L 42 L 124/48 L 95 11/09/19 07:00 36.4 C L 43 L 95 11/09/19 06:06 37.0 C 50 L 136/52 L 95 11/09/19 06:00 37.0 C 50 L 95 11/09/19 05:06 37.0 C 53 L 131/55 L 95 11/09/19 05:00 37.0 C 56 L 18 97 Laboratory Results 11/09/19 11/09/19 11/09/19 Range/Units 11:38 05:57 05:07 WBC (4.8-10.8) K/uL RBC (4.7-6.1) M/uL Hgb (14.0-18.0) g/dL Hct (42-52) % MCV (80-100) fL MCH (25-34) pg MCHC (32-36) g/dL RDW Std Deviation (36.4-46.3) fL RDW Coeff of Bret (11.5-14.5) % Plt Count (130-400) K/uL MPV (7.4-10.4) fL Immature Gran % (Auto) % Neut % (Auto) % Lymph % (Auto) % Marion % (Auto) % Eos % (Auto) % Baso % (Auto) % Neut # (Auto) (1.4-6.5) K/uL Lymph # (Auto) (1.2-3.4) K/uL Marion # (Auto) (0.11-0.59) K/uL Eos # (Auto) (0-0.5) K/uL Baso # (Auto) (0-0.2) K/uL Immature Gran # (Auto) (0.00-0.02) K/uL Platelet Estimate (Normal) Anisocytosis Sample Site R Radial POC pH 7.40 (7.35-7.45) POC pCO2 30 L (35-46) mmHg POC pO2 90 (80-95) mmHg POC HCO3 19 (19-24) christine/L POC Total CO2 19 L (24-31) mmol/L POC Base Excess -6.0 (-9-1.8) christine/L POC ABG O2 Sat 97.0 H (90-95) % Ellis Test Pass O2 Delivery Device Ventilator POC O2 Rate 18 Minute Ventilation 9.0 POC FiO2 30 % Tidal Volume 500 PEEP 5 Sodium (136-145) mmol/L Potassium (3.5-5.1) mmol/L Chloride (98-107) mmol/L Carbon Dioxide (21-32) mmol/L Anion Gap (3-11) BUN (7-18) mg/dl Creatinine (0.6-1.4) mg/dl Est Cr Clr Drug Dosing ml/min Est GFR ( Amer) Est GFR (Non-Af Amer) BUN/Creatinine Ratio (10-20) Glucose (70-99) mg/dl POC Glucose 120 H 115 H (70-99) mg/dl Estimat Average Glucose Hemoglobin A1c Calcium (8.5-10.1) mg/dl Phosphorus (2.5-4.9) mg/dl Magnesium (1.8-2.4) mg/dl Total Bilirubin (0.2-1) mg/dl Direct Bilirubin (0-0.2) mg/dl AST (15-37) U/L ALT (12-78) U/L Alkaline Phosphatase (45-117) U/L Ammonia (11-32) umol/L Total Protein (6.4-8.2) gm/dl Albumin (3.4-5.0) gm/dl 11/09/19 11/09/19 11/09/19 Range/Units 04:01 04:01 04:01 WBC (4.8-10.8) K/uL RBC (4.7-6.1) M/uL Hgb (14.0-18.0) g/dL Hct (42-52) % MCV (80-100) fL MCH (25-34) pg MCHC (32-36) g/dL RDW Std Deviation (36.4-46.3) fL RDW Coeff of Bret (11.5-14.5) % Plt Count (130-400) K/uL MPV (7.4-10.4) fL Immature Gran % (Auto) % Neut % (Auto) % Lymph % (Auto) % Marion % (Auto) % Eos % (Auto) % Baso % (Auto) % Neut # (Auto) (1.4-6.5) K/uL Lymph # (Auto) (1.2-3.4) K/uL Marion # (Auto) (0.11-0.59) K/uL Eos # (Auto) (0-0.5) K/uL Baso # (Auto) (0-0.2) K/uL Immature Gran # (Auto) (0.00-0.02) K/uL Platelet Estimate (Normal) Anisocytosis Sample Site POC pH (7.35-7.45) POC pCO2 (35-46) mmHg POC pO2 (80-95) mmHg POC HCO3 (19-24) christine/L POC Total CO2 (24-31) mmol/L POC Base Excess (-9-1.8) christine/L POC ABG O2 Sat (90-95) % Ellis Test O2 Delivery Device POC O2 Rate Minute Ventilation POC FiO2 % Tidal Volume PEEP Sodium 137 (136-145) mmol/L Potassium 4.8 (3.5-5.1) mmol/L Chloride 109 H (98-107) mmol/L Carbon Dioxide 21 (21-32) mmol/L Anion Gap 7.0 (3-11) BUN 59 H (7-18) mg/dl Creatinine 1.38 (0.6-1.4) mg/dl Est Cr Clr Drug Dosing 80.8 ml/min Est GFR ( Amer) 64.9 Est GFR (Non-Af Amer) 56.0 BUN/Creatinine Ratio 43.0 H (10-20) Glucose 102 H (70-99) mg/dl POC Glucose (70-99) mg/dl Estimat Average Glucose Pending Hemoglobin A1c Pending Calcium 8.1 L (8.5-10.1) mg/dl Phosphorus 5.0 H (2.5-4.9) mg/dl Magnesium 2.0 (1.8-2.4) mg/dl Total Bilirubin 1.1 H (0.2-1) mg/dl Direct Bilirubin 0.6 H (0-0.2) mg/dl AST 31 (15-37) U/L ALT 25 (12-78) U/L Alkaline Phosphatase 116 (45-117) U/L Ammonia 93.0 H (11-32) umol/L Total Protein 6.4 (6.4-8.2) gm/dl Albumin 1.8 L (3.4-5.0) gm/dl 11/09/19 11/09/19 11/08/19 Range/Units 04:01 00:23 18:07 WBC 4.87 D (4.8-10.8) K/uL RBC 2.82 L (4.7-6.1) M/uL Hgb 8.7 L (14.0-18.0) g/dL Hct 26.0 L (42-52) % MCV 92.2 (80-100) fL MCH 30.9 (25-34) pg MCHC 33.5 (32-36) g/dL RDW Std Deviation 69.9 H (36.4-46.3) fL RDW Coeff of Bret 21.3 H (11.5-14.5) % Plt Count 65 L (130-400) K/uL MPV 12.6 H (7.4-10.4) fL Immature Gran % (Auto) 0.4 % Neut % (Auto) 87.0 % Lymph % (Auto) 6.4 % Marion % (Auto) 6.2 % Eos % (Auto) 0.0 % Baso % (Auto) 0.0 % Neut # (Auto) 4.24 (1.4-6.5) K/uL Lymph # (Auto) 0.31 L (1.2-3.4) K/uL Marion # (Auto) 0.30 (0.11-0.59) K/uL Eos # (Auto) 0.00 (0-0.5) K/uL Baso # (Auto) 0.00 (0-0.2) K/uL Immature Gran # (Auto) 0.02 (0.00-0.02) K/uL Platelet Estimate Decreased L (Normal) Anisocytosis Present Sample Site POC pH (7.35-7.45) POC pCO2 (35-46) mmHg POC pO2 (80-95) mmHg POC HCO3 (19-24) christine/L POC Total CO2 (24-31) mmol/L POC Base Excess (-9-1.8) christine/L POC ABG O2 Sat (90-95) % Ellis Test O2 Delivery Device POC O2 Rate Minute Ventilation POC FiO2 % Tidal Volume PEEP Sodium (136-145) mmol/L Potassium (3.5-5.1) mmol/L Chloride (98-107) mmol/L Carbon Dioxide (21-32) mmol/L Anion Gap (3-11) BUN (7-18) mg/dl Creatinine (0.6-1.4) mg/dl Est Cr Clr Drug Dosing ml/min Est GFR ( Amer) Est GFR (Non-Af Amer) BUN/Creatinine Ratio (10-20) Glucose (70-99) mg/dl POC Glucose 117 H 116 H (70-99) mg/dl Estimat Average Glucose Hemoglobin A1c Calcium (8.5-10.1) mg/dl Phosphorus (2.5-4.9) mg/dl Magnesium (1.8-2.4) mg/dl Total Bilirubin (0.2-1) mg/dl Direct Bilirubin (0-0.2) mg/dl AST (15-37) U/L ALT (12-78) U/L Alkaline Phosphatase (45-117) U/L Ammonia (11-32) umol/L Total Protein (6.4-8.2) gm/dl Albumin (3.4-5.0) gm/dl Diagnostic Findings Chest x-ray image personally reviewed by me and agree with the following report: XR chest 1V portable CLINICAL HISTORY: Respiratory failure COMPARISON STUDY: November 08, 2019 FINDINGS: There is an endotracheal tube 4 cm above the aristeo. There is a nasogastric tube which passes into the stomach. There is a left internal jugular central venous catheter unchanged in position. The heart remains enlarged. There is radiographic evidence of congestive failure with pulmonary edema and bilateral pleural effusions. There are associated basilar opacity statistically atelectatic.[ IMPRESSION: Cardiomegaly and radiographic evidence of pulmonary edema. Persistent bilateral pleural effusions with associated basilar opacities. PG Care Time/CCT Total # of Minutes Spent Total Time Spent with Patient: Total time spent is greater than 50% in coordination of care (as documented) at patient's floor/unit and/or counseling patient: Coding Level of Care Code 55194 Subseq Hosp Care Lvl 3 Diagnoses Acute respiratory failure J96.00 Hepatic encephalopathy K72.90 Pleural cavity effusion J90 Cirrhosis K74.60 COPD (chronic obstructive pulmonary disease) J44.9 BPH (benign prostatic hyperplasia) N40.0 GERD (gastroesophageal reflux disease) K21.9 Open wound of left foot S91.302D Encounter type: subsequent encounter Ascites R18.8 Pancytopenia D61.818 Neuropathy G62.9 Barretts esophagus K22.70 Hyperlipidemia E78.5 DVT prophylaxis Z29.9 (1) Open wound of left foot Encounter type: subsequent encounter Qualified Code(s): S91.302D - Unspecified open wound, left foot, subsequent encounter
[2019-11-09] MEDS: SODIUM CHLORIDE 0.9% 1000ML 1,000 ML IV SCH (17:23)
[2019-11-09] MEDS ORDERED: Nursing to Pharmacy Communication SCH (17:45)
[2019-11-10 03:55] LABS: Hematocrit (blood only) 26.3 % (42-52); Hemoglobin 8.9 g/dL (14.0-18.0); Mean Corpuscular Hgb Conc 33.8 g/dL (32-36); Mean Corpuscular Volume 91.6 fL (80-100); RDW Coefficient of Variation 21.3 % (11.5-14.5); RDW Standard Deviation 68.9 fL (36.4-46.3); Red Blood Count 2.87 M/uL (4.7-6.1)
[2019-11-10 04:16] LABS: Mean Platelet Volume 11.6 fL (7.4-10.4); Platelet Count 71 K/uL (130-400)
[2019-11-10 04:19] LABS: Anisocytosis Present; Eosinophils # (auto) 0.06 K/uL (0-0.5); Eosinophils % (auto) 1.2 %; Immature Granulocytes # (auto) 0.04 K/uL (0.00-0.02); Immature Granulocytes % (auto) 0.8 %; Lymphocytes % (auto) 11.5 %; Monocytes # (auto) 0.53 K/uL (0.11-0.59); Monocytes % (auto) 10.2 %; Neutrophils # (auto) 3.97 K/uL (1.4-6.5); Neutrophils % (auto) 76.3 %
[2019-11-10 05:30] LABS: iSTAT Allen Test Pass; iSTAT Art Bld Gas pCO2 Correct 29 mmHg (35-46); iSTAT Art Bld Gas pH Corrected 7.439 (7.35-7.45); iSTAT Arterial Blood Gas HCO3 19 meg/L (19-24); iSTAT Arterial Blood Gas pCO2 29 mmHg (35-46); iSTAT Arterial Blood Gas pH 7.44 (7.35-7.45); iSTAT Arterial Blood Gas pO2 96 mmHg (80-95); iSTAT Arterial Blood Gas pO2 C 96; iSTAT Carbon Dioxide 20 mmol/L (24-31); iSTAT FiO2 30 %; iSTAT Hematocrit 27 % (42-52); iSTAT Hemoglobin 9.2 g/dl (14.0-18.0); iSTAT Potassium 3.9 mmol/L (3.3-5.0); iSTAT Site R Radial; iSTAT Sodium 138 mmol/L (135-144)
[2019-11-10] MEDS: DOXYCYCLINE HYCLATE 100 MG in DEXTROSE 5% 100 ML IV SCH (05:41)
[2019-11-10 05:49] LABS: Estimated Average Glucose 82 mg/dl; Hemoglobin A1C 4.5 % (4.5-5.6)
[2019-11-10 05:54] LABS: Albumin Level 1.7 gm/dl (3.4-5.0); BUN Creatinine Ratio 49.5 (10-20); Bilirubin Direct 0.5 mg/dl (0-0.2); Bilirubin,Total 1.1 mg/dl (0.2-1); Est GFR (African American) 75.3; Est GFR (Non-African American) 64.9; Magnesium 2.2 mg/dl (1.8-2.4); Phosphorus 4.8 mg/dl (2.5-4.9); Total Protein 6.2 gm/dl (6.4-8.2)
--- NOTE | 2019-11-10 07:31 | Critical Care Progress Note ---
Date of Service November 10, 2019 Assessment & Plan (1) Hepatic encephalopathy: 58-year-old male with history of alcoholic cirrhosis admitted with profound exacerbation of his hepatic encephalopathy. The etiology is somewhat unclear, given unimpressive paracentesis. No signs of GI bleeding to account for markedly increased ammonia level. Neuro: - CAM ICU negative - GCS 10T - Acute hepatic encephalopathy Cardiac/Vascular: - Volume appears up and with jainism of blood pressure - continue Spironolactone and Furosemide Respiratory: - extubated today following successful spontaneous breathing trial - Acute hypercarbic respiratory failure likely secondary to hepatic encephalopathy. - transitioned to Nasal Cannula 3L at 0800 - prior to arrival was started on Prednisone taper (completed 30mg/20mg), will continue 10mg for 3 days prior to stop GI/Nutrition: - Alcoholic cirrhosis: continue lactulose and rifaximin. - Ammonia continuing to downtrend this AM - Etiology of his decompensation somewhat unclear - Paracentesis fluid inconsistent with SBP, however patient was pre-treated with antibiotics - discontinue Peptamen - bedside swallow to be completed prior to trial of oral feeding Renal/Lytes: - Cr stable at 1.22 - Continue electrolyte replacement per ICU protocol ENDO: - Glycemic control per ICU protocol. No prior history of diabetes. HEME: - Hgb stable at 8.9, Platelets stable at 71; no bleeding and no indication for transfusion ID: - Foot ulcer demonstrating Klebsiella pneumoniae on culture - CT findings noted. - Unclear if debridement will be required - Day #3 of ertapenem and doxycycline. Lines/IV Access: - PIV x1 - IV team to eval for second line DVT Prophylaxis: - Lovenox (2) Cirrhosis: (3) Pleural cavity effusion: Admission and Anticipated Discharge Date Admission Date: November 08, 2019 Supervising Physician Co-Signing Physician Notes Dr. Napier was resident physician during care of patient. I separately evaluated patient for jenkins portions of the history and the exam. I was present during the critical portion of medical decision making, and I discussed the case with the resident. I generally agree with the findings and plan. Patient extubated this morning, improvement in mental status continue lactulose. Subjective Patient tolerated spontaneous breathing trial, following commands; extubated this morning and transitioned to 3L NC with continued maintained saturations Review of Systems Review of Systems: Unobtainable due to endotracheal tube Physical Exam Constitutional: WD/WN, vitals as above Eyes: PERRL, conjunctivae normal, anicteric sclerae Neck: trachea midline, no thyromegaly Respiratory: normal respiratory effort; no respiratory distress and no labored breathing Auscultation: lungs clear to auscultation bilaterally Cardiovascular: Rate/Rhythm: regular rate and regular rhythm Heart Sounds: no gallop, no murmur and no cardiac rub Vessels: normal peripheral pulses Gastrointestinal (Abdomen): normal bowel sounds, soft, nontender, no hepatosplenomegaly Musculoskeletal: Extremities: extremities normal to inspection Skin: no rashes, warm and dry Neurologic: GCS 10T; follows commands, moves all extremities spontaneously, opens eyes spontaneously; PERRLA, EOM intact, patellar and brachial reflexes 2+ b/l; Babinski negative b/l Lymphatic: no cervical lymphadenopathy Results & Data Results & Data ([facility]) Vital Signs (Past 12 Hours) Vital Signs Temp Pulse Resp BP Pulse Ox 11/10/19 06:10 57 L 15 97 11/10/19 06:06 36.5 C 57 L 110/47 L 97 11/10/19 05:20 14 11/10/19 05:06 36.9 C 54 L 125/55 L 96 11/10/19 04:06 37.2 C 56 L 126/54 L 93 11/10/19 03:32 56 L 18 96 11/10/19 03:06 37.1 C 56 L 126/56 L 94 11/10/19 02:06 37.0 C 55 L 119/49 L 95 11/10/19 01:08 36.8 C 52 L 121/50 L 95 11/10/19 01:06 36.9 C 52 L 121/50 L 95 11/10/19 00:15 54 L 19 95 11/10/19 00:06 36.6 C 54 L 120/50 L 95 11/10/19 00:00 52 L 11/09/19 23:06 36.3 C L 53 L 119/55 L 92 11/09/19 22:06 36.0 C L 61 130/59 L 94 11/09/19 21:57 36.2 C L 59 L 129/58 L 96 11/09/19 21:50 60 18 97 11/09/19 21:06 56 L 114/44 L 95 11/09/19 21:00 58 L 98 11/09/19 20:06 36.3 C L 59 L 122/46 L 97 Laboratory Results 11/10/19 11/10/19 11/10/19 Range/Units 05:15 03:45 03:45 WBC (4.8-10.8) K/uL RBC (4.7-6.1) M/uL Hgb (14.0-18.0) g/dL POC Hgb 9.2 L (14.0-18.0) g/dl Hct (42-52) % POC Hct 27 L (42-52) % MCV (80-100) fL MCH (25-34) pg MCHC (32-36) g/dL RDW Std Deviation (36.4-46.3) fL RDW Coeff of Bret (11.5-14.5) % Plt Count (130-400) K/uL MPV (7.4-10.4) fL Immature Gran % (Auto) % Neut % (Auto) % Lymph % (Auto) % [place] % (Auto) % Eos % (Auto) % Baso % (Auto) % Neut # (Auto) (1.4-6.5) K/uL Lymph # (Auto) (1.2-3.4) K/uL [place] # (Auto) (0.11-0.59) K/uL Eos # (Auto) (0-0.5) K/uL Baso # (Auto) (0-0.2) K/uL Immature Gran # (Auto) (0.00-0.02) K/uL Platelet Estimate (Normal) Anisocytosis Sample Site R Radial POC pH 7.44 (7.35-7.45) POC pCO2 29 L (35-46) mmHg POC pO2 96 H (80-95) mmHg POC HCO3 19 (19-24) christine/L POC Total CO2 20 L (24-31) mmol/L POC Base Excess -5.0 (-9-1.8) christine/L ABG pH (Temp Correct) 7.439 (7.35-7.45) ABG pCO2 (Temp Corrct 29 L (35-46) mmHg POC ABG pO2 at Pt Temp 96 POC ABG O2 Sat 98.0 H (90-95) % Ellis Test Pass O2 Delivery Device Ventilator POC O2 Rate 18 Minute Ventilation 9.0 POC FiO2 30 % Tidal Volume 500 PEEP 5 POC Sodium 138 (135-144) mmol/L Sodium 139 (136-145) mmol/L POC Potassium 3.9 (3.3-5.0) mmol/L Potassium 4.0 D (3.5-5.1) mmol/L Chloride 109 H (98-107) mmol/L Carbon Dioxide 20 L (21-32) mmol/L Anion Gap 10.0 (3-11) BUN 60 H (7-18) mg/dl Creatinine 1.22 (0.6-1.4) mg/dl Est Cr Clr Drug Dosing 90.0 ml/min Est GFR ( Amer) 75.3 Est GFR (Non-Af Amer) 64.9 BUN/Creatinine Ratio 49.5 H (10-20) Glucose 82 (70-99) mg/dl POC Glucose (70-99) mg/dl Estimat Average Glucose mg/dl Hemoglobin A1c (4.5-5.6) % Calcium 8.0 L (8.5-10.1) mg/dl Phosphorus 4.8 (2.5-4.9) mg/dl Magnesium 2.2 (1.8-2.4) mg/dl Total Bilirubin 1.1 H (0.2-1) mg/dl Direct Bilirubin 0.5 H (0-0.2) mg/dl AST 29 (15-37) U/L ALT 27 (12-78) U/L Alkaline Phosphatase 110 (45-117) U/L Ammonia 47.0 H (11-32) umol/L Total Protein 6.2 L (6.4-8.2) gm/dl Albumin 1.7 L (3.4-5.0) gm/dl 11/10/19 11/09/19 11/09/19 Range/Units 03:45 17:27 11:38 WBC 5.20 (4.8-10.8) K/uL RBC 2.87 L (4.7-6.1) M/uL Hgb 8.9 L (14.0-18.0) g/dL POC Hgb (14.0-18.0) g/dl Hct 26.3 L (42-52) % POC Hct (42-52) % MCV 91.6 (80-100) fL MCH 31.0 (25-34) pg MCHC 33.8 (32-36) g/dL RDW Std Deviation 68.9 H (36.4-46.3) fL RDW Coeff of Bret 21.3 H (11.5-14.5) % Plt Count 71 L (130-400) K/uL MPV 11.6 H (7.4-10.4) fL Immature Gran % (Auto) 0.8 % Neut % (Auto) 76.3 % Lymph % (Auto) 11.5 % [place] % (Auto) 10.2 % Eos % (Auto) 1.2 % Baso % (Auto) 0.0 % Neut # (Auto) 3.97 (1.4-6.5) K/uL Lymph # (Auto) 0.60 L (1.2-3.4) K/uL [place] # (Auto) 0.53 (0.11-0.59) K/uL Eos # (Auto) 0.06 (0-0.5) K/uL Baso # (Auto) 0.00 (0-0.2) K/uL Immature Gran # (Auto) 0.04 H (0.00-0.02) K/uL Platelet Estimate (Normal) Anisocytosis Present Sample Site POC pH (7.35-7.45) POC pCO2 (35-46) mmHg POC pO2 (80-95) mmHg POC HCO3 (19-24) christine/L POC Total CO2 (24-31) mmol/L POC Base Excess (-9-1.8) christine/L ABG pH (Temp Correct) (7.35-7.45) ABG pCO2 (Temp Corrct (35-46) mmHg POC ABG pO2 at Pt Temp POC ABG O2 Sat (90-95) % Ellis Test O2 Delivery Device POC O2 Rate Minute Ventilation POC FiO2 % Tidal Volume PEEP POC Sodium (135-144) mmol/L Sodium (136-145) mmol/L POC Potassium (3.3-5.0) mmol/L Potassium (3.5-5.1) mmol/L Chloride (98-107) mmol/L Carbon Dioxide (21-32) mmol/L Anion Gap (3-11) BUN (7-18) mg/dl Creatinine (0.6-1.4) mg/dl Est Cr Clr Drug Dosing ml/min Est GFR ( Amer) Est GFR (Non-Af Amer) BUN/Creatinine Ratio (10-20) Glucose (70-99) mg/dl POC Glucose 111 H 120 H (70-99) mg/dl Estimat Average Glucose mg/dl Hemoglobin A1c (4.5-5.6) % Calcium (8.5-10.1) mg/dl Phosphorus (2.5-4.9) mg/dl Magnesium (1.8-2.4) mg/dl Total Bilirubin (0.2-1) mg/dl Direct Bilirubin (0-0.2) mg/dl AST (15-37) U/L ALT (12-78) U/L Alkaline Phosphatase (45-117) U/L Ammonia (11-32) umol/L Total Protein (6.4-8.2) gm/dl Albumin (3.4-5.0) gm/dl 11/09/19 11/09/19 11/09/19 Range/Units 04:01 04:01 04:01 WBC (4.8-10.8) K/uL RBC (4.7-6.1) M/uL Hgb (14.0-18.0) g/dL POC Hgb (14.0-18.0) g/dl Hct (42-52) % POC Hct (42-52) % MCV (80-100) fL MCH (25-34) pg MCHC (32-36) g/dL RDW Std Deviation (36.4-46.3) fL RDW Coeff of Bret (11.5-14.5) % Plt Count (130-400) K/uL MPV (7.4-10.4) fL Immature Gran % (Auto) % Neut % (Auto) % Lymph % (Auto) % [place] % (Auto) % Eos % (Auto) % Baso % (Auto) % Neut # (Auto) (1.4-6.5) K/uL Lymph # (Auto) (1.2-3.4) K/uL [place] # (Auto) (0.11-0.59) K/uL Eos # (Auto) (0-0.5) K/uL Baso # (Auto) (0-0.2) K/uL Immature Gran # (Auto) (0.00-0.02) K/uL Platelet Estimate (Normal) Anisocytosis Sample Site POC pH (7.35-7.45) POC pCO2 (35-46) mmHg POC pO2 (80-95) mmHg POC HCO3 (19-24) christine/L POC Total CO2 (24-31) mmol/L POC Base Excess (-9-1.8) christine/L ABG pH (Temp Correct) (7.35-7.45) ABG pCO2 (Temp Corrct (35-46) mmHg POC ABG pO2 at Pt Temp POC ABG O2 Sat (90-95) % Ellis Test O2 Delivery Device POC O2 Rate Minute Ventilation POC FiO2 % Tidal Volume PEEP POC Sodium (135-144) mmol/L Sodium 137 (136-145) mmol/L POC Potassium (3.3-5.0) mmol/L Potassium 4.8 (3.5-5.1) mmol/L Chloride 109 H (98-107) mmol/L Carbon Dioxide 21 (21-32) mmol/L Anion Gap 7.0 (3-11) BUN 59 H (7-18) mg/dl Creatinine 1.38 (0.6-1.4) mg/dl Est Cr Clr Drug Dosing 80.8 ml/min Est GFR ( Amer) 64.9 Est GFR (Non-Af Amer) 56.0 BUN/Creatinine Ratio 43.0 H (10-20) Glucose 102 H (70-99) mg/dl POC Glucose (70-99) mg/dl Estimat Average Glucose 82 mg/dl Hemoglobin A1c 4.5 (4.5-5.6) % Calcium 8.1 L (8.5-10.1) mg/dl Phosphorus 5.0 H (2.5-4.9) mg/dl Magnesium 2.0 (1.8-2.4) mg/dl Total Bilirubin 1.1 H (0.2-1) mg/dl Direct Bilirubin 0.6 H (0-0.2) mg/dl AST 31 (15-37) U/L ALT 25 (12-78) U/L Alkaline Phosphatase 116 (45-117) U/L Ammonia 93.0 H (11-32) umol/L Total Protein 6.4 (6.4-8.2) gm/dl Albumin 1.8 L (3.4-5.0) gm/dl 11/09/19 Range/Units 04:01 WBC 4.87 D (4.8-10.8) K/uL RBC 2.82 L (4.7-6.1) M/uL Hgb 8.7 L (14.0-18.0) g/dL POC Hgb (14.0-18.0) g/dl Hct 26.0 L (42-52) % POC Hct (42-52) % MCV 92.2 (80-100) fL MCH 30.9 (25-34) pg MCHC 33.5 (32-36) g/dL RDW Std Deviation 69.9 H (36.4-46.3) fL RDW Coeff of Bret 21.3 H (11.5-14.5) % Plt Count 65 L (130-400) K/uL MPV 12.6 H (7.4-10.4) fL Immature Gran % (Auto) 0.4 % Neut % (Auto) 87.0 % Lymph % (Auto) 6.4 % [place] % (Auto) 6.2 % Eos % (Auto) 0.0 % Baso % (Auto) 0.0 % Neut # (Auto) 4.24 (1.4-6.5) K/uL Lymph # (Auto) 0.31 L (1.2-3.4) K/uL [place] # (Auto) 0.30 (0.11-0.59) K/uL Eos # (Auto) 0.00 (0-0.5) K/uL Baso # (Auto) 0.00 (0-0.2) K/uL Immature Gran # (Auto) 0.02 (0.00-0.02) K/uL Platelet Estimate Decreased L (Normal) Anisocytosis Present Sample Site POC pH (7.35-7.45) POC pCO2 (35-46) mmHg POC pO2 (80-95) mmHg POC HCO3 (19-24) christine/L POC Total CO2 (24-31) mmol/L POC Base Excess (-9-1.8) christine/L ABG pH (Temp Correct) (7.35-7.45) ABG pCO2 (Temp Corrct (35-46) mmHg POC ABG pO2 at Pt Temp POC ABG O2 Sat (90-95) % Ellis Test O2 Delivery Device POC O2 Rate Minute Ventilation POC FiO2 % Tidal Volume PEEP POC Sodium (135-144) mmol/L Sodium (136-145) mmol/L POC Potassium (3.3-5.0) mmol/L Potassium (3.5-5.1) mmol/L Chloride (98-107) mmol/L Carbon Dioxide (21-32) mmol/L Anion Gap (3-11) BUN (7-18) mg/dl Creatinine (0.6-1.4) mg/dl Est Cr Clr Drug Dosing ml/min Est GFR ( Amer) Est GFR (Non-Af Amer) BUN/Creatinine Ratio (10-20) Glucose (70-99) mg/dl POC Glucose (70-99) mg/dl Estimat Average Glucose mg/dl Hemoglobin A1c (4.5-5.6) % Calcium (8.5-10.1) mg/dl Phosphorus (2.5-4.9) mg/dl Magnesium (1.8-2.4) mg/dl Total Bilirubin (0.2-1) mg/dl Direct Bilirubin (0-0.2) mg/dl AST (15-37) U/L ALT (12-78) U/L Alkaline Phosphatase (45-117) U/L Ammonia (11-32) umol/L Total Protein (6.4-8.2) gm/dl Albumin (3.4-5.0) gm/dl Medications Administered Current Inpatient Medications Albuterol (Albut/Ipratrop 3mg/0.5mg Neb 3 Ml Vial) 3 ml NEB QIDR MADELYN Stop: 12/08/19 12:20 Last Admin: 11/09/19 19:10 Dose: 3 ml Documented by: Fentanyl Citrate (Fentanyl Citrate 100 Mcg/2 Ml Vial) 50 mcg IV Q2H PRN PRN Reason: Moderate Pain (4,5,6) on NRS Stop: 11/22/19 13:28 Last Admin: 11/09/19 09:26 Dose: 50 mcg Documented by: Heparin Sodium (Beef Lung) (Heparin 10 Unit/Ml 5 Ml Flush) 5 ml FLUSH PRN PRN PRN Reason: Flush Stop: 12/08/19 23:57 Propofol (Diprivan) 1,000 mg in 100 mls @ 0 mls/hr IV .Q0M [facility]; Protocol Stop: 11/11/19 12:20 Last Titration: 11/10/19 05:50 Dose: 0 mcg/kg/min, 0 mls/hr Documented by: Ertapenem 1,000 mg/ Sodium (Chloride) 60 mls @ 100 mls/hr IV Q24H [facility] Stop: 11/15/19 07:59 Last Infusion: 11/09/19 08:38 Dose: Infused Documented by: Sodium Chloride (Nss 1000ml) 1,000 mls @ 40 mls/hr IV .Q24H [facility] Stop: 12/08/19 12:20 Last Admin: 11/09/19 17:23 Dose: 40 mls/hr Documented by: Famotidine 20 mg/ Syringe 5 mls @ 2.5 mls/min IV Q12H [facility] Stop: 12/08/19 13:14 Last Admin: 11/09/19 21:08 Dose: 2.5 mls/min Documented by: Doxycycline Hyclate 100 mg/ (Dextrose) 110 mls @ 55 mls/hr IV Q12H [facility] Stop: 11/15/19 17:59 Last Admin: 11/10/19 05:41 Dose: 55 mls/hr Documented by: Furosemide 40 mg/ Syringe 4 mls @ 4 mls/min IV DAILY [facility] Stop: 12/09/19 08:59 Last Admin: 11/09/19 09:23 Dose: 4 mls/min Documented by: Lactulose (Lactulose Syrup 30 Gm/45 Ml Udp) 30 gm PO BID [facility] Stop: 12/08/19 13:14 Last Admin: 11/09/19 21:08 Dose: 30 gm Documented by: Midazolam HCl (Midazolam Hcl 1 Mg/Ml 2ml Vial) 2 mg IV Q2H PRN PRN Reason: RASS goal -1 Stop: 12/08/19 13:28 Last Admin: 11/09/19 09:26 Dose: 2 mg Documented by: Miscellaneous (Icu Electrolyte Replacement Protocol) 1 ea N/A UD PRN PRN Reason: for e-lyte repletion Stop: 11/15/19 12:20 Miscellaneous ([facility] Protocol For Hyperglycemia) 1 ea N/A PRN PRN; Protocol PRN Reason: Hyperglycemia Protocol Stop: 11/10/19 12:20 Nutritional Formula (Peptamen Intense Vhp 1.0 Anil 1,000 Ml Bag) 1,000 ml OG UD [facility]; Protocol Stop: 12/09/19 09:59 Last Admin: 11/09/19 11:40 Dose: 1,000 ml Documented by: Propofol (Propofol Bolus From Bag) 20 mg IV Q5M PRN PRN Reason: Sedation Stop: 11/11/19 12:20 Rifaximin (Rifaximin 550 Mg Tablet) 550 mg NG BID [facility] Stop: 12/08/19 12:20 Last Admin: 11/09/19 21:08 Dose: 550 mg Documented by: Spironolactone (Spironolactone 25 Mg Tab) 25 mg PO QAM [facility] Stop: 12/09/19 08:59 Last Admin: 11/09/19 09:23 Dose: 25 mg Documented by: Resident Activity Tracking Resident Involvement: Resident Care Provided Care Provided: Adult Hospital Medicine (Critical Care)
[2019-11-10] MEDS: SPIRONOLACTONE 25 MG TAB PO SCH (07:34)
[2019-11-10] MEDS: RIFAXIMIN 550 MG TABLET NG SCH ×2 (07:34→21:51)
[2019-11-10] MEDS: LACTULOSE SYRUP 30 GM/45 ML UDP PO SCH ×2 (07:36→21:51)
[2019-11-10] MEDS: ERTAPENEM SODIUM 1,000 MG in SODIUM CHLORIDE 0.9% 50 ML IV SCH (07:36)
[2019-11-10] MEDS: FUROSEMIDE 40 MG in SYRINGE 0 ML IV SCH (07:36)
[2019-11-10] MEDS: ALBUT/IPRATROP 3MG/0.5MG NEB 3 ML VIAL NEB SCH (07:40)
[2019-11-10] MEDS ORDERED: predniSONE 20 MG TAB PO SCH (09:00)
--- NOTE | 2019-11-10 09:05 | XRay Report ---
SINGLE VIEW CHEST CLINICAL HISTORY: Respiratory failure. FINDINGS: An AP, portable, upright chest radiograph is compared to study dated 11/09/2019 and correlat ed with chest dated 11/08/2019. The examination is degraded by portable technique and patient rotation . A left subclavian central venous catheter, an enteric tube, and an endotracheal tube are unchanged in position. The cardiac silhouette is enlarged. There is pulmonary vascular congestion. There are sm all pleural effusions with bibasilar consolidation. No pneumothorax is seen. The bony thorax is kylee sly intact. A left shoulder arthroplasty is partially imaged. IMPRESSION: 1. Stable lines and tubes. 2. Cardiomegaly with evidence of congestive failure and interstitial edema. This is similar to yester day. 3. Small pleural effusions with bibasilar consolidation. ACT 112: Negative or not required by law. Electronically signed by: Tony Coto M.D. 11/10/2019 9:03 AM
[2019-11-10] MEDS ORDERED: ALBUT/IPRATROP 3MG/0.5MG NEB 3 ML VIAL NEB PRN (09:52)
[2019-11-10] MEDS: FAMOTIDINE 20 MG in SYRINGE 3 ML IV SCH ×2 (10:47→21:51)
[2019-11-10] MEDS: ENOXAPARIN INJ 40 MG/0.4 ML SYR SQ SCH (11:30)
--- NOTE | 2019-11-10 15:06 | Hospitalist Progress Note ---
Date of Service November 10, 2019 Assessment & Plan (1) Acute respiratory failure: With acute respiratory failure with hypercarbia, likely due to hypoventilation from elevated ammonia level intubated on admission due to profound lethargy, concerns for inability to protect airway successfully extubated today, 11/09 breathing well on room air, normal respiratory effort CTA chest negative for PE, had pleural effusion, s/p thoracentesis, transudative (2) Hepatic encephalopathy: Reportedly patient's had a significant issue with his liver from about February 2019 where he is been in and out of [facility] and also [facility]. Most recently discharged from [facility] after a bout of Klebsiella bacteremia from a left foot infection. Family states he has had a recent paracentesis of 6 L which fluid analyzed without evidence of infection. Subsequently patient was sent from there to [facility] where he decompensated. On presentation his ammonia was 200 and he was found gurgling in his bed at rehab, had an absent gag reflex and no response to pain. He was intubated. treated with Lactulose via OG tube while intubated ammonia down to 40's today, he is alert and responsive diuretics resumes, diuresing well today, 1500mL out -Continue lactulose, rifaximin PO if he passes swallow study -Follows with hepatology at [facility] -Is on IV hydrocortisone here for stress dose steroids and it appears he had been on prednisone prior to admission-unclear if this was for respiratory reasons or hepatic reasons -Follow ammonia level daily acute encephalopathy appears to be resolved today (3) Pleural cavity effusion: Will effusion likely may be extension of his ascitic fluid as he is large ascites in his abdomen. Transudative but cultures pending Follow with chest x-ray breathing well today (4) Cirrhosis: Alcoholic cirrhosis with history of esophageal varices and portal hypertension -Continue medications as above and follow-up with hepatology Had paracentesis, continue IV albumin, his albumin is only 1.9 (5) COPD (chronic obstructive pulmonary disease): No acute issues -Continue albuterol neb 4 times daily On doxycycline and ertapenem in case of pneumonia -Restart home inhalers now that he is extubated (6) BPH (benign prostatic hyperplasia): Fully catheter was placed patient typically is on Flomax (7) GERD (gastroesophageal reflux disease): PPI be held and Pepcid to be utilized intravenously (8) Open wound of left foot: Patient is been nursing an open wound in his left foot for some time. He previously has had bones removed according to his family for osteomyelitis secondary to a crush injury that occurred at work. Patient is missing the fourth and fifth toe on the right foot and the fourth toe on the left foot he has a 3 x 5 cm open wound on the dorsum of his left foot that goes down to the fatty tissue. CT scan of the foot suspicious for osteomyelitis of the third proximal phalanx Wound culture growing gram-negative rods -Follow wound and blood cultures -Continue ertapenem, doxycycline consult wound provider today (9) Ascites: As above, status post paracentesis No evidence of SBP Follow cultures (10) Pancytopenia: Secondary to cirrhosis of liver Follow CBC (11) Neuropathy: Severe in bilateral lower extremities -Typically is on gabapentin for this -Restart gabapentin once more awake and alert (12) Barretts esophagus: Continue antacid (13) Hyperlipidemia: -Holding home statin for now (14) DVT prophylaxis: SCDs, plts are low at 71k FEN: was on tube feeds until extubated, will get swallow evaluation Disposition-continued stay in the ICU today, likely to PCU tomorrow morning if he remains stable Admission and Anticipated Discharge Date Admission Date: November 08, 2019 Subjective patient extubated this morning, breathing well on room air this afternoon he is a little sleepy but responding appropriately RN attempted ice chips at the bedside, was coughing and choking, will get speech/swallow evaluation spoke with tubing supervisor, left foot needs wound care provider to see reviewed chart since admission reviewed labs, WBC 5k, Hb 8.9, plts 71 BMP with Cr of 1.22, normal electrolytes, ammonia down to 47 from peak of 200 on admission discussed with critical care, appreciate their assistance with management Review of Systems Review of Systems: All systems reviewed & are unremarkable except as noted in Subjective Constitutional: + fatigue and + weakness; no fever and no sweats Respiratory: no cough and no dyspnea Cardiovascular: + edema; no chest pain Gastrointestinal: no abdominal pain, no nausea, no vomiting, no constipation and no diarrhea/loose stools Physical Exam Constitutional: well developed, well nourished and + ill appearing; no acute distress Eyes: PERRL, conjunctivae normal, anicteric sclerae ENMT: external ear and nose normal, oropharynx normal Neck: trachea midline, no thyromegaly Respiratory: normal respiratory effort; no respiratory distress, no labored breathing and no cough Auscultation: + diminished lung sounds (bases) Cardiovascular: Rate/Rhythm: regular rate and regular rhythm Heart Sounds: normal S1 and normal S2; no murmur Extremities: normal capillary refill and + edema Gastrointestinal (Abdomen): normal bowel sounds, soft, nontender, no hepatosplenomegaly Musculoskeletal: no cyanosis or clubbing, extremities motor strength 5/5 Skin: + turgor decreased, + rash (venous stasis discoloration of legs) and + wound (left dorsal foot) Neurologic: patellar DTR's 2+ bilat, sensation intact and PERRL, EOMI, accommodation nl, no face palsy, no dysarthria Psychiatric: Orientation: alert and oriented x 3 Lymphatic: no cervical or axillary lymphadenopathy Results & Data Results & Data ([facility]) Vital Signs (Past 12 Hours) Vital Signs Temp Pulse Resp BP Pulse Ox 11/10/19 14:07 71 14 145/62 H 94 11/10/19 14:00 68 94 11/10/19 13:07 59 L 14 151/58 H 94 11/10/19 13:00 60 94 11/10/19 12:08 58 L 14 96 11/10/19 12:07 36.3 C L 59 L 14 163/70 H 96 11/10/19 12:00 59 L 95 11/10/19 11:07 61 147/65 H 95 11/10/19 11:00 61 94 11/10/19 10:08 36.3 C L 64 96 11/10/19 10:07 36.2 C L 64 14 127/55 L 96 11/10/19 10:00 36.2 C L 66 12 96 11/10/19 09:07 36.3 C L 67 12 131/58 L 94 11/10/19 09:00 36.3 C L 68 12 95 11/10/19 08:06 36.3 C L 78 14 132/51 L 96 11/10/19 08:00 36.3 C L 67 12 97 11/10/19 07:35 54 L 14 97 11/10/19 07:07 36.4 C L 57 L 14 124/50 L 97 11/10/19 07:00 36.4 C L 54 L 10 L 96 11/10/19 06:10 57 L 15 97 11/10/19 06:06 36.5 C 57 L 110/47 L 97 11/10/19 05:20 14 11/10/19 05:06 36.9 C 54 L 125/55 L 96 11/10/19 04:06 37.2 C 56 L 126/54 L 93 11/10/19 03:32 56 L 18 96 11/10/19 03:06 37.1 C 56 L 126/56 L 94 Laboratory Results Laboratory Results - last 24 hr 11/09/19 11/09/19 11/09/19 04:01 04:01 04:01 WBC 4.87 D RBC 2.82 L Hgb 8.7 L POC Hgb Hct 26.0 L POC Hct MCV 92.2 MCH 30.9 MCHC 33.5 RDW Std Deviation 69.9 H RDW Coeff of Bret 21.3 H Plt Count 65 L MPV 12.6 H Immature Gran % (Auto) 0.4 Neut % (Auto) 87.0 Lymph % (Auto) 6.4 [place] % (Auto) 6.2 Eos % (Auto) 0.0 Baso % (Auto) 0.0 Neut # (Auto) 4.24 Lymph # (Auto) 0.31 L [place] # (Auto) 0.30 Eos # (Auto) 0.00 Baso # (Auto) 0.00 Immature Gran # (Auto) 0.02 Platelet Estimate Decreased L Anisocytosis Present Sample Site POC pH POC pCO2 POC pO2 POC HCO3 POC Total CO2 POC Base Excess ABG pH (Temp Correct) ABG pCO2 (Temp Corrct POC ABG pO2 at Pt Temp POC ABG O2 Sat Ellis Test O2 Delivery Device POC O2 Rate Minute Ventilation POC FiO2 Tidal Volume PEEP POC Sodium Sodium 137 POC Potassium Potassium 4.8 Chloride 109 H Carbon Dioxide 21 Anion Gap 7.0 BUN 59 H Creatinine 1.38 Est Cr Clr Drug Dosing 80.8 Est GFR ( Amer) 64.9 Est GFR (Non-Af Amer) 56.0 BUN/Creatinine Ratio 43.0 H Glucose 102 H POC Glucose Estimat Average Glucose 82 Hemoglobin A1c 4.5 Calcium 8.1 L Phosphorus 5.0 H Magnesium 2.0 Total Bilirubin 1.1 H Direct Bilirubin 0.6 H AST 31 ALT 25 Alkaline Phosphatase 116 Ammonia Total Protein 6.4 Albumin 1.8 L 11/09/19 11/09/19 11/10/19 04:01 17:27 03:45 WBC 5.20 RBC 2.87 L Hgb 8.9 L POC Hgb Hct 26.3 L POC Hct MCV 91.6 MCH 31.0 MCHC 33.8 RDW Std Deviation 68.9 H RDW Coeff of Bret 21.3 H Plt Count 71 L MPV 11.6 H Immature Gran % (Auto) 0.8 Neut % (Auto) 76.3 Lymph % (Auto) 11.5 [place] % (Auto) 10.2 Eos % (Auto) 1.2 Baso % (Auto) 0.0 Neut # (Auto) 3.97 Lymph # (Auto) 0.60 L [place] # (Auto) 0.53 Eos # (Auto) 0.06 Baso # (Auto) 0.00 Immature Gran # (Auto) 0.04 H Platelet Estimate Anisocytosis Present Sample Site POC pH POC pCO2 POC pO2 POC HCO3 POC Total CO2 POC Base Excess ABG pH (Temp Correct) ABG pCO2 (Temp Corrct POC ABG pO2 at Pt Temp POC ABG O2 Sat Ellis Test O2 Delivery Device POC O2 Rate Minute Ventilation POC FiO2 Tidal Volume PEEP POC Sodium Sodium POC Potassium Potassium Chloride Carbon Dioxide Anion Gap BUN Creatinine Est Cr Clr Drug Dosing Est GFR ( Amer) Est GFR (Non-Af Amer) BUN/Creatinine Ratio Glucose POC Glucose 111 H Estimat Average Glucose Hemoglobin A1c Calcium Phosphorus Magnesium Total Bilirubin Direct Bilirubin AST ALT Alkaline Phosphatase Ammonia 93.0 H Total Protein Albumin 11/10/19 11/10/19 11/10/19 03:45 03:45 05:15 WBC RBC Hgb POC Hgb 9.2 L Hct POC Hct 27 L MCV MCH MCHC RDW Std Deviation RDW Coeff of Bret Plt Count MPV Immature Gran % (Auto) Neut % (Auto) Lymph % (Auto) [place] % (Auto) Eos % (Auto) Baso % (Auto) Neut # (Auto) Lymph # (Auto) [place] # (Auto) Eos # (Auto) Baso # (Auto) Immature Gran # (Auto) Platelet Estimate Anisocytosis Sample Site R Radial POC pH 7.44 POC pCO2 29 L POC pO2 96 H POC HCO3 19 POC Total CO2 20 L POC Base Excess -5.0 ABG pH (Temp Correct) 7.439 ABG pCO2 (Temp Corrct 29 L POC ABG pO2 at Pt Temp 96 POC ABG O2 Sat 98.0 H Ellis Test Pass O2 Delivery Device Ventilator POC O2 Rate 18 Minute Ventilation 9.0 POC FiO2 30 Tidal Volume 500 PEEP 5 POC Sodium 138 Sodium 139 POC Potassium 3.9 Potassium 4.0 D Chloride 109 H Carbon Dioxide 20 L Anion Gap 10.0 BUN 60 H Creatinine 1.22 Est Cr Clr Drug Dosing 90.0 Est GFR ( Amer) 75.3 Est GFR (Non-Af Amer) 64.9 BUN/Creatinine Ratio 49.5 H Glucose 82 POC Glucose Estimat Average Glucose Hemoglobin A1c Calcium 8.0 L Phosphorus 4.8 Magnesium 2.2 Total Bilirubin 1.1 H Direct Bilirubin 0.5 H AST 29 ALT 27 Alkaline Phosphatase 110 Ammonia 47.0 H Total Protein 6.2 L Albumin 1.7 L 11/10/19 11:01 WBC RBC Hgb POC Hgb Hct POC Hct MCV MCH MCHC RDW Std Deviation RDW Coeff of Bret Plt Count MPV Immature Gran % (Auto) Neut % (Auto) Lymph % (Auto) [place] % (Auto) Eos % (Auto) Baso % (Auto) Neut # (Auto) Lymph # (Auto) [place] # (Auto) Eos # (Auto) Baso # (Auto) Immature Gran # (Auto) Platelet Estimate Anisocytosis Sample Site POC pH POC pCO2 POC pO2 POC HCO3 POC Total CO2 POC Base Excess ABG pH (Temp Correct) ABG pCO2 (Temp Corrct POC ABG pO2 at Pt Temp POC ABG O2 Sat Ellis Test O2 Delivery Device POC O2 Rate Minute Ventilation POC FiO2 Tidal Volume PEEP POC Sodium Sodium POC Potassium Potassium Chloride Carbon Dioxide Anion Gap BUN Creatinine Est Cr Clr Drug Dosing Est GFR ( Amer) Est GFR (Non-Af Amer) BUN/Creatinine Ratio Glucose POC Glucose 82 Estimat Average Glucose Hemoglobin A1c Calcium Phosphorus Magnesium Total Bilirubin Direct Bilirubin AST ALT Alkaline Phosphatase Ammonia Total Protein Albumin Medications Administered Current Inpatient Medications Albuterol (Albut/Ipratrop 3mg/0.5mg Neb 3 Ml Vial) 3 ml NEB QIDR PRN PRN Reason: Shortness Of Breath Or Wheezing Stop: 12/08/19 12:20 Enoxaparin Sodium (Enoxaparin Inj 40 Mg/0.4 Ml Syr) 40 mg SQ QAM [facility] Stop: 09/30/20 10:14 Last Admin: 11/10/19 11:30 Dose: 40 mg Documented by: Heparin Sodium (Beef Lung) (Heparin 10 Unit/Ml 5 Ml Flush) 5 ml FLUSH PRN PRN PRN Reason: Flush Stop: 12/08/19 23:57 Ertapenem 1,000 mg/ Sodium (Chloride) 60 mls @ 100 mls/hr IV Q24H [facility] Stop: 11/15/19 07:59 Last Admin: 11/10/19 07:36 Dose: 100 mls/hr Documented by: Sodium Chloride (Nss 1000ml) 1,000 mls @ 40 mls/hr IV .Q24H [facility] Stop: 12/08/19 12:20 Last Admin: 11/09/19 17:23 Dose: 40 mls/hr Documented by: Famotidine 20 mg/ Syringe 5 mls @ 2.5 mls/min IV Q12H [facility] Stop: 12/08/19 13:14 Last Admin: 11/10/19 10:47 Dose: 2.5 mls/min Documented by: Furosemide 40 mg/ Syringe 4 mls @ 4 mls/min IV DAILY [facility] Stop: 12/09/19 08:59 Last Admin: 11/10/19 07:36 Dose: 4 mls/min Documented by: Lactulose (Lactulose Syrup 30 Gm/45 Ml Udp) 30 gm PO BID [facility] Stop: 12/08/19 13:14 Last Admin: 11/10/19 07:36 Dose: 30 gm Documented by: Miscellaneous (Icu Electrolyte Replacement Protocol) 1 ea N/A UD PRN PRN Reason: for e-lyte repletion Stop: 11/15/19 12:20 Prednisone (Pred[facility]one 10 Mg Tablet) [facility] Stop: 11/12/19 11:59 Rifaximin (Rifaximin 550 Mg Tablet) 550 mg NG BID [facility] Stop: 12/08/19 12:20 Last Admin: 11/10/19 07:34 Dose: 550 mg Documented by: Spironolactone (Spironolactone 25 Mg Tab) 25 mg PO QAM [facility] Stop: 12/09/19 08:59 Last Admin: 11/10/19 07:34 Dose: 25 mg Documented by: PG Care Time/CCT Total # of Minutes Spent Total Time Spent with Patient: Total time spent is greater than 50% in coordination of care (as documented) at patient's floor/unit and/or counseling patient: Coding Level of Care Code 93903 Subseq Hosp Care Lvl 3 Diagnoses Acute respiratory failure J96.00 Hepatic encephalopathy K72.90 Pleural cavity effusion J90 Cirrhosis K74.60 COPD (chronic obstructive pulmonary disease) J44.9 BPH (benign prostatic hyperplasia) N40.0 GERD (gastroesophageal reflux disease) K21.9 Open wound of left foot S91.302D Encounter type: subsequent encounter Ascites R18.8 Pancytopenia D61.818 Neuropathy G62.9 Barretts esophagus K22.70 Hyperlipidemia E78.5 DVT prophylaxis Z29.9 (1) Open wound of left foot Encounter type: subsequent encounter Qualified Code(s): S91.302D - Unspecified open wound, left foot, subsequent encounter
[2019-11-10] MEDS: predniSONE 10 MG TABLET PO SCH (15:48)
[2019-11-10] MEDS: SODIUM CHLORIDE 0.9% 1000ML 1,000 ML IV SCH (17:46)
[2019-11-10] MEDS: propofoL 1,000 MG/100 ML VIAL IV SCH (21:17)
[2019-11-11 04:40] LABS: Albumin Level 1.7 gm/dl (3.4-5.0); BUN Creatinine Ratio 53.4 (10-20); Bilirubin Direct 0.6 mg/dl (0-0.2); Calcium 7.8 mg/dl (8.5-10.1); Creatinine Clr Calc Pharmacy 115.3 ml/min; Est GFR (African American) 101.9; Est GFR (Non-African American) 87.9; Magnesium 2.1 mg/dl (1.8-2.4); Potassium 3.6 mmol/L (3.5-5.1)
[2019-11-11 04:47] LABS: Anisocytosis Present; Eosinophils # (auto) 0.08 K/uL (0-0.5); Eosinophils % (auto) 1.6 %; Hematocrit (blood only) 27.6 % (42-52); Hemoglobin 9.2 g/dL (14.0-18.0); Immature Granulocytes # (auto) 0.02 K/uL (0.00-0.02); Immature Granulocytes % (auto) 0.4 %; Lymphocytes # (auto) 0.38 K/uL (1.2-3.4); Lymphocytes % (auto) 7.8 %; Mean Corpuscular Hgb Conc 33.3 g/dL (32-36); Mean Corpuscular Volume 92.9 fL (80-100); Mean Platelet Volume 11.6 fL (7.4-10.4); Monocytes # (auto) 0.64 K/uL (0.11-0.59); Monocytes % (auto) 13.1 %; Neutrophils # (auto) 3.75 K/uL (1.4-6.5); Neutrophils % (auto) 77.1 %; Platelet Count 67 K/uL (130-400); Platelet Estimate Decreased (Normal); RDW Coefficient of Variation 21.5 % (11.5-14.5); RDW Standard Deviation 70.3 fL (36.4-46.3); Red Blood Count 2.97 M/uL (4.7-6.1); White Blood Count 4.87 K/uL (4.8-10.8)
[2019-11-11 04:49] LABS: Bilirubin,Total 1.3 mg/dl (0.2-1); Phosphorus 3.3 mg/dl (2.5-4.9); Total Protein 6.1 gm/dl (6.4-8.2)
[2019-11-11] MEDS: POTASSIUM CHLORIDE 20 MEQ/15 ML UDC PO SCH ×2 (05:27→09:31)
--- NOTE | 2019-11-11 07:11 | Critical Care Progress Note ---
Date of Service November 11, 2019 Assessment & Plan (1) Hepatic encephalopathy: 58-year-old male with history of alcoholic cirrhosis admitted with profound exacerbation of his hepatic encephalopathy. The etiology is somewhat unclear, given unimpressive paracentesis. No signs of GI bleeding to account for markedly increased ammonia level. Neuro: - CAM ICU negative Cardiac/Vascular: - Volume remains up despite net negative 1L in the last 24 hours; likely contributions from low protein and low albumin - continue spironolactone and home furosemide Respiratory: - extubated today following successful spontaneous breathing trial - Acute hypercarbic respiratory failure likely secondary to hepatic encephalopathy. - maintained on room air overnight without decompensation - prior to arrival was started on Prednisone taper (completed 30mg/20mg), will continue 10mg for 3 days prior to stop GI/Nutrition: - Alcoholic cirrhosis: continue rifaximin; hold lactulose given extensive stool output - Ammonia continuing to downtrend this AM - Etiology of his decompensation somewhat unclear - Paracentesis fluid inconsistent with SBP, however patient was pre-treated with antibiotics - Speech eval: tolerated thin liquids through straw, recommended easy to chew diet Renal/Lytes: - Cr stable at 0.95 - start Kdur 20meq daily - converted to home PO furosemide regimen - Continue electrolyte replacement per ICU protocol ENDO: - Glycemic control per ICU protocol. No prior history of diabetes. HEME: - Hgb stable at 9.2, Platelets stable at 67 - No signs of bleeding and no indication for transfusion ID: - Foot ulcer demonstrating Klebsiella pneumoniae on culture - CT findings noted. - Ortho consulted for potential osteomyelitis - Unclear if debridement will be required - ESR 27, CRP 2.32 - Day #4/7 Ertapenem Lines/IV Access: - PIV x1 DVT Prophylaxis: - Lovenox Admission and Anticipated Discharge Date Admission Date: November 08, 2019 Supervising Physician Co-Signing Physician Notes Dr. Napier was resident physician during care of patient. I separately evaluated patient for jenkins portions of the history and the exam. I was present during the critical portion of medical decision making, and I discussed the case with the resident. I generally agree with the findings and plan. Mental status improving, continued lactulose. Will review chart to see if the patient has history of varices. Continue antibiotics and await wound and orthopedic consultation. Subjective Overnight continued to have large number of bowel movements while on Lactulose and Rifaximin; states that while at home on the medication he would frequently have days with large volumes of stooling that would usually calm down. Continues to endorse no abdominal pain or tenderness, desires to eat. Review of Systems Review of Systems: All systems reviewed & are unremarkable except as noted in Subjective Physical Exam Constitutional: WD/WN, vitals as above Eyes: PERRL, conjunctivae normal, anicteric sclerae Neck: trachea midline, no thyromegaly Respiratory: normal respiratory effort; no respiratory distress and no labored breathing Auscultation: lungs clear to auscultation bilaterally Cardiovascular: Rate/Rhythm: regular rate and regular rhythm Heart Sounds: no gallop, no murmur and no cardiac rub Vessels: normal peripheral pulses Gastrointestinal (Abdomen): normal bowel sounds, soft, nontender, no hepatosplenomegaly Musculoskeletal: Extremities: extremities normal to inspection Skin: no rashes, warm and dry Psychiatric: A+Ox3, euthymic affect Lymphatic: no cervical lymphadenopathy Results & Data Results & Data ([facility]) Vital Signs (Past 12 Hours) Vital Signs Temp Pulse Resp BP Pulse Ox 11/11/19 06:07 58 L 23 137/59 L 93 11/11/19 05:07 59 L 15 144/72 H 94 11/11/19 04:07 36.3 C L 63 19 150/72 H 92 11/11/19 03:07 59 L 19 138/65 93 11/11/19 02:07 61 22 122/60 95 11/11/19 01:26 62 23 155/69 H 94 11/11/19 01:09 65 19 61/32 L 93 11/11/19 00:07 36.6 C 67 14 139/88 95 11/10/19 23:07 65 24 144/61 H 94 11/10/19 22:07 67 15 145/69 H 96 11/10/19 21:07 64 16 127/59 L 97 Laboratory Results 11/11/19 11/11/19 11/10/19 Range/Units 04:11 04:11 11:01 WBC 4.87 (4.8-10.8) K/uL RBC 2.97 L (4.7-6.1) M/uL Hgb 9.2 L (14.0-18.0) g/dL Hct 27.6 L (42-52) % MCV 92.9 (80-100) fL MCH 31.0 (25-34) pg MCHC 33.3 (32-36) g/dL RDW Std Deviation 70.3 H (36.4-46.3) fL RDW Coeff of Bret 21.5 H (11.5-14.5) % Plt Count 67 L (130-400) K/uL MPV 11.6 H (7.4-10.4) fL Immature Gran % (Auto) 0.4 % Neut % (Auto) 77.1 % Lymph % (Auto) 7.8 % [place] % (Auto) 13.1 % Eos % (Auto) 1.6 % Baso % (Auto) 0.0 % Neut # (Auto) 3.75 (1.4-6.5) K/uL Lymph # (Auto) 0.38 L (1.2-3.4) K/uL [place] # (Auto) 0.64 H (0.11-0.59) K/uL Eos # (Auto) 0.08 (0-0.5) K/uL Baso # (Auto) 0.00 (0-0.2) K/uL Immature Gran # (Auto) 0.02 (0.00-0.02) K/uL Platelet Estimate Decreased L (Normal) Anisocytosis Present Sodium 142 (136-145) mmol/L Potassium 3.6 (3.5-5.1) mmol/L Chloride 113 H (98-107) mmol/L Carbon Dioxide 23 (21-32) mmol/L Anion Gap 6.0 (3-11) BUN 51 H (7-18) mg/dl Creatinine 0.95 (0.6-1.4) mg/dl Est Cr Clr Drug Dosing 115.3 ml/min Est GFR ( Amer) 101.9 Est GFR (Non-Af Amer) 87.9 BUN/Creatinine Ratio 53.4 H (10-20) Glucose 93 (70-99) mg/dl POC Glucose 82 (70-99) mg/dl Calcium 7.8 L (8.5-10.1) mg/dl Phosphorus 3.3 D (2.5-4.9) mg/dl Magnesium 2.1 (1.8-2.4) mg/dl Total Bilirubin 1.3 H (0.2-1) mg/dl Direct Bilirubin 0.6 H (0-0.2) mg/dl AST 32 (15-37) U/L ALT 27 (12-78) U/L Alkaline Phosphatase 120 H (45-117) U/L Total Protein 6.1 L (6.4-8.2) gm/dl Albumin 1.7 L (3.4-5.0) gm/dl Medications Administered Current Inpatient Medications Albuterol (Albut/Ipratrop 3mg/0.5mg Neb 3 Ml Vial) 3 ml NEB QIDR PRN PRN Reason: Shortness Of Breath Or Wheezing Stop: 12/08/19 12:20 Enoxaparin Sodium (Enoxaparin Inj 40 Mg/0.4 Ml Syr) 40 mg SQ QAM [facility] Stop: 12/10/19 10:14 Last Admin: 11/10/19 11:30 Dose: 40 mg Documented by: Heparin Sodium (Beef Lung) (Heparin 10 Unit/Ml 5 Ml Flush) 5 ml FLUSH PRN PRN PRN Reason: Flush Stop: 12/08/19 23:57 Ertapenem 1,000 mg/ Sodium (Chloride) 60 mls @ 100 mls/hr IV Q24H [facility] Stop: 11/15/19 07:59 Last Infusion: 11/10/19 08:15 Dose: Infused Documented by: Sodium Chloride (Nss 1000ml) 1,000 mls @ 40 mls/hr IV .Q24H [facility] Stop: 12/08/19 12:20 Last Admin: 11/10/19 17:46 Dose: 40 mls/hr Documented by: Famotidine 20 mg/ Syringe 5 mls @ 2.5 mls/min IV Q12H [facility] Stop: 12/08/19 13:14 Last Admin: 11/10/19 21:51 Dose: 2.5 mls/min Documented by: Furosemide 40 mg/ Syringe 4 mls @ 4 mls/min IV DAILY [facility] Stop: 12/09/19 08:59 Last Admin: 11/10/19 07:36 Dose: 4 mls/min Documented by: Lactulose (Lactulose Syrup 30 Gm/45 Ml Udp) 30 gm PO BID [facility] Stop: 12/08/19 13:14 Last Admin: 11/10/19 21:51 Dose: 30 gm Documented by: Miscellaneous (Icu Electrolyte Replacement Protocol) 1 ea N/A UD PRN PRN Reason: for e-lyte repletion Stop: 11/15/19 12:20 Potassium Chloride (Potassium Chloride 20 Meq/15 Ml Udc) 20 meq PO Q4H [facility] Stop: 11/11/19 09:31 Last Admin: 11/11/19 05:27 Dose: 20 meq Documented by: Prednisone (Prednisone 10 Mg Tablet) 10 mg PO QAM [facility] Stop: 11/12/19 11:59 Last Admin: 11/10/19 15:48 Dose: 10 mg Documented by: Rifaximin (Rifaximin 550 Mg Tablet) 550 mg NG BID [facility] Stop: 12/08/19 12:20 Last Admin: 11/10/19 21:51 Dose: 550 mg Documented by: Spironolactone (Spironolactone 25 Mg Tab) 25 mg PO QAM [facility] Stop: 12/09/19 08:59 Last Admin: 11/10/19 07:34 Dose: 25 mg Documented by: Resident Activity Tracking Resident Involvement: Resident Care Provided Care Provided: Adult Hospital Medicine (Critical Care)
[2019-11-11] MEDS: SPIRONOLACTONE 25 MG TAB PO SCH (08:14)
[2019-11-11] MEDS: predniSONE 10 MG TABLET PO SCH (08:15)
[2019-11-11] MEDS: RIFAXIMIN 550 MG TABLET NG SCH ×2 (08:15→21:10)
[2019-11-11] MEDS: ENOXAPARIN INJ 40 MG/0.4 ML SYR SQ SCH (08:15)
[2019-11-11] MEDS: FUROSEMIDE 40 MG in SYRINGE 0 ML IV SCH (08:15)
[2019-11-11] MEDS: LACTULOSE SYRUP 30 GM/45 ML UDP PO SCH (08:15)
[2019-11-11] MEDS: FAMOTIDINE 20 MG in SYRINGE 3 ML IV SCH (09:29)
[2019-11-11] MEDS: ERTAPENEM SODIUM 1,000 MG in SODIUM CHLORIDE 0.9% 50 ML IV SCH (09:29)
--- NOTE | 2019-11-11 09:34 | Billing Data ---
Date of Service November 10, 2019 Coding Level of Care Code Critical Care 1st 30-74 mins Time Spent (min) 40 Comment I have personally spent 40 minutes of critical care time in the direct management of this patient. This is a life/limb threatening event. This includes time spent evaluating patient, direct bedside care, chart review, placing orders, interpretation of diagnostic studies, discussion with consultants, patient, and/or family members regarding treatment decisions, as well as other required patient management activities. This time is exclusive of all separately billable procedures, and teaching time and separate from and in addition to any other critical care service time.
--- NOTE | 2019-11-11 09:35 | Billing Data ---
Date of Service November 11, 2019 Coding Level of Care Code 98128 Subseq Hosp Care Lvl 3
--- NOTE | 2019-11-11 15:07 | Wound Consultation ---
Date of Consultation November 11, 2019 Assessment & Plan (1) Open wound of left foot: Patient with an open wound of his left foot secondary to reported surgery for osteomyelitis status post crush injury. Wound needed debridement. Topical Xylocaine was applied. Using scissors and forceps necrotic tissue was removed. There is no bleeding. Patient tolerated procedure well with no complications. This represents an excisional debridement less than 20 cm. Wound be dressed with Aquacel Ag and OPTi foam. Continue IV antibiotics. Await orthopedic recommendations. Thank you for allowing participate in the care of this patient. Please call with any questions. History of Present Illness Reason for Consultation: foot wound Attending Physician: Tee Lara DO History of Present Illness This is a 58-year-old male with a history of BPH, GERD, COPD, dyslipidemia, Díaz's esophagus, hepatic encephalopathy, altered mental status and osteomyelitis of his left foot. Patient was admitted with altered mental status. Reportedly had surgery for osteomyelitis of his foot. He is a poor historian and is unable to provide any information. He has a persistent open wound of his left dorsal foot. CT of his foot was suggestive of osteomyelitis of the third phalanx. Allergies Allergy/AdvReac Type Severity Reaction Status Date / Time adhesive tape Allergy Unknown Unknown Unverified 11/09/19 17:17 Cephalosporins Allergy Unknown Unknown Unverified 11/08/19 08:48 ciprofloxacin Allergy Unknown Unknown Unverified 11/08/19 08:48 linezolid Allergy Unknown Unknown Unverified 11/08/19 08:48 vancomycin Allergy Unknown Hives Verified 11/08/19 15:19 Home Medications Home Medications Medication Instructions Recorded Confirmed Type acetaminophen [Tylenol] 650 mg PO QID PRN 11/08/19 11/08/19 History albuterol sulfate 2 puff INHALATION Q6 PRN 11/08/19 11/08/19 History atorvastatin 20 mg PO HS 11/08/19 11/08/19 History bisacodyl 10 mg IA DAILY PRN 11/08/19 11/08/19 History collagenase clostridium histo. 1 applic TOPICAL DAILY 11/08/19 11/08/19 History [Santyl] cyanocobalamin (vitamin B-12) 500 mcg PO QAM 11/08/19 11/08/19 History dextromethorphan-guaifenesin 10 ml PO Q6H PRN 11/08/19 11/08/19 History docusate sodium 100 mg PO BID 11/08/19 11/08/19 History fluticasone furoate-vilanterol 1 inh INHALATION QAM 11/08/19 11/08/19 History furosemide 40 mg PO BID 11/08/19 11/08/19 History gabapentin 100 mg PO TID 11/08/19 11/08/19 History lactulose 15 ml PO QID 11/08/19 11/08/19 History lidocaine [Lidoderm] 2 patch TOPICAL QAM 11/08/19 11/08/19 History magnesium hydroxide [Milk of 30 ml PO DAILY PRN 11/08/19 11/08/19 History Magnesia] nystatin 1 applic TOPICAL QID 11/08/19 11/08/19 History pantoprazole 40 mg PO QAM 11/08/19 11/08/19 History polyethylene glycol 3350 [Miralax] 17 g PO QDL PRN 11/08/19 11/08/19 History prednisone 30 mg PO QAM 11/08/19 11/08/19 History rifaximin [Xifaxan] 550 mg PO BID 11/08/19 11/08/19 History sennosides-docusate sodium 1 tab-cap PO QDL PRN 11/08/19 11/08/19 History [Senokot-S] sodium phosphates [Fleet Enema] 133 ml IA DAILY PRN 11/08/19 11/08/19 History spironolactone 100 mg PO BID 11/08/19 11/08/19 History sucralfate 1 g PO QAM 11/08/19 11/08/19 History tamsulosin 0.4 mg PO QAM 11/08/19 11/08/19 History thiamine HCl (vitamin B1) 100 mg PO QAM 11/08/19 11/08/19 History umeclidinium [Incruse Ellipta] 1 inh INHALATION QAM 11/08/19 11/08/19 History zinc sulfate 220 mg PO QAM 11/08/19 11/08/19 History Patient History Medical History Ascites Barretts esophagus BPH (benign prostatic hyperplasia) Cirrhosis COPD (chronic obstructive pulmonary disease) GERD (gastroesophageal reflux disease) Hyperlipidemia Neuropathy Pancytopenia Social History Smoking Status: Unknown if ever smoked Preferred Language: Austrian Communication Ability: Unable Communication Ability Comment: sedated, intubated 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 There is necrotic tissue in the wound. Periwound with mild erythema. There is moderate drainage no foul odors. Neurologic: + confused Psychiatric: Orientation: oriented to person and cooperative Results & Data ([facility]) Vital Signs (Past 12 Hours) Vital Signs Temp Pulse Resp BP Pulse Ox 11/11/19 08:00 36.4 C L 69 17 117/79 94 11/11/19 07:00 60 16 136/72 95 11/11/19 06:07 58 L 23 137/59 L 93 11/11/19 05:07 59 L 15 144/72 H 94 11/11/19 04:07 36.3 C L 63 19 150/72 H 92 11/11/19 03:07 59 L 19 138/65 93 Laboratory Results 11/11/19 11/11/19 11/11/19 Range/Units 07:17 04:11 04:11 WBC (4.8-10.8) K/uL RBC (4.7-6.1) M/uL Hgb (14.0-18.0) g/dL Hct (42-52) % MCV (80-100) fL MCH (25-34) pg MCHC (32-36) g/dL RDW Std Deviation (36.4-46.3) fL RDW Coeff of Bret (11.5-14.5) % Plt Count (130-400) K/uL MPV (7.4-10.4) fL Immature Gran % (Auto) % Neut % (Auto) % Lymph % (Auto) % [place] % (Auto) % Eos % (Auto) % Baso % (Auto) % Neut # (Auto) (1.4-6.5) K/uL Lymph # (Auto) (1.2-3.4) K/uL [place] # (Auto) (0.11-0.59) K/uL Eos # (Auto) (0-0.5) K/uL Baso # (Auto) (0-0.2) K/uL Immature Gran # (Auto) (0.00-0.02) K/uL Platelet Estimate (Normal) Anisocytosis ESR 27 H (0-14) mm/hr Sodium (136-145) mmol/L Potassium (3.5-5.1) mmol/L Chloride (98-107) mmol/L Carbon Dioxide (21-32) mmol/L Anion Gap (3-11) BUN (7-18) mg/dl Creatinine (0.6-1.4) mg/dl Est Cr Clr Drug Dosing ml/min Est GFR ( Amer) Est GFR (Non-Af Amer) BUN/Creatinine Ratio (10-20) Glucose (70-99) mg/dl Calcium (8.5-10.1) mg/dl Phosphorus (2.5-4.9) mg/dl Magnesium (1.8-2.4) mg/dl Total Bilirubin (0.2-1) mg/dl Direct Bilirubin (0-0.2) mg/dl AST (15-37) U/L ALT (12-78) U/L Alkaline Phosphatase (45-117) U/L Ammonia 16.6 (11-32) umol/L C-Reactive Protein 2.32 H (0-0.29) mg/dl Total Protein (6.4-8.2) gm/dl Albumin (3.4-5.0) gm/dl 11/11/19 11/11/19 Range/Units 04:11 04:11 WBC 4.87 (4.8-10.8) K/uL RBC 2.97 L (4.7-6.1) M/uL Hgb 9.2 L (14.0-18.0) g/dL Hct 27.6 L (42-52) % MCV 92.9 (80-100) fL MCH 31.0 (25-34) pg MCHC 33.3 (32-36) g/dL RDW Std Deviation 70.3 H (36.4-46.3) fL RDW Coeff of Bret 21.5 H (11.5-14.5) % Plt Count 67 L (130-400) K/uL MPV 11.6 H (7.4-10.4) fL Immature Gran % (Auto) 0.4 % Neut % (Auto) 77.1 % Lymph % (Auto) 7.8 % [place] % (Auto) 13.1 % Eos % (Auto) 1.6 % Baso % (Auto) 0.0 % Neut # (Auto) 3.75 (1.4-6.5) K/uL Lymph # (Auto) 0.38 L (1.2-3.4) K/uL [place] # (Auto) 0.64 H (0.11-0.59) K/uL Eos # (Auto) 0.08 (0-0.5) K/uL Baso # (Auto) 0.00 (0-0.2) K/uL Immature Gran # (Auto) 0.02 (0.00-0.02) K/uL Platelet Estimate Decreased L (Normal) Anisocytosis Present ESR (0-14) mm/hr Sodium 142 (136-145) mmol/L Potassium 3.6 (3.5-5.1) mmol/L Chloride 113 H (98-107) mmol/L Carbon Dioxide 23 (21-32) mmol/L Anion Gap 6.0 (3-11) BUN 51 H (7-18) mg/dl Creatinine 0.95 (0.6-1.4) mg/dl Est Cr Clr Drug Dosing 115.3 ml/min Est GFR ( Amer) 101.9 Est GFR (Non-Af Amer) 87.9 BUN/Creatinine Ratio 53.4 H (10-20) Glucose 93 (70-99) mg/dl Calcium 7.8 L (8.5-10.1) mg/dl Phosphorus 3.3 D (2.5-4.9) mg/dl Magnesium 2.1 (1.8-2.4) mg/dl Total Bilirubin 1.3 H (0.2-1) mg/dl Direct Bilirubin 0.6 H (0-0.2) mg/dl AST 32 (15-37) U/L ALT 27 (12-78) U/L Alkaline Phosphatase 120 H (45-117) U/L Ammonia (11-32) umol/L C-Reactive Protein (0-0.29) mg/dl Total Protein 6.1 L (6.4-8.2) gm/dl Albumin 1.7 L (3.4-5.0) gm/dl Diagnostic Findings CT foot suggestive of osteomyelitis of third phalanx. PG Care Time/CCT Total # of Minutes Spent Total Time Spent with Patient: Total time spent is greater than 50% in coordination of care (as documented) at patient's floor/unit and/or counseling patient: Coding Level of Care Code 08258 Inpt Consult Level 3 Diagnoses Open wound of left foot S91.302D Encounter type: subsequent encounter (1) Open wound of left foot Encounter type: subsequent encounter Qualified Code(s): S91.302D - Unspecified open wound, left foot, subsequent encounter
--- NOTE | 2019-11-11 15:21 | Consultation Report ---
DATE OF CONSULTATION: 11/11/2019 ORTHOPEDIC CONSULTATION PATIENT OF: Pancho Solomon MD. CHIEF COMPLAINT: Left foot ulceration. HISTORY OF PRESENT ILLNESS: This 58-year-old white male is seen today in the ICU in room 107 for evaluation of his left foot. The patient was admitted to this hospital on 11/08/2019 for altered mental status, respiratory failure, and an open left foot wound. He was previously at [facility] and developed encephalopathy. He was obtunded upon arrival to the ED. The patient was intubated. He was just extubated yesterday. He has a history of COPD as well as Klebsiella pneumonia with sepsis, underlying issues of alcoholic cirrhosis, history of ascites, frequent hepatic encephalopathy, acute kidney injury, history of fluid overload, hyponatremia, lower extremity cellulitis, hepatorenal syndrome, and Díaz's esophagitis. The patient was recently admitted to [facility] on 10/05 through 10/12 for encephalopathy. He was admitted again on 10/19 and discharged on 10/30 for bacteremia due to Klebsiella pneumoniae. There was a concern for osteomyelitis in his foot at that time, but MRI obtained on 10/21 showed no evidence of osteomyelitis. At that time, patient stated that he developed a wound on the dorsum of his foot on 10/13. He developed cellulitis and was seen at the ED there on 10/19 for admission. Currently, patient relates that he previously had foot surgery by a varnish maker helper in [place] several months ago. He states he did require wound VAC after surgery. The surgery was to resect a portion of his foot due to osteomyelitis. He states the skin fully healed after application of his wound VAC, but he developed cellulitis a few weeks later. He has had the open wound since. The patient was on doxycycline as an outpatient and is currently on Ertapenum. He denies any pain in the left foot. He is currently awake and talkative, but sometimes difficult to understand. He has no other complaints at this point. He denies diabetes. CT scan of the foot has been obtained here at [facility] 2 days ago. PAST MEDICAL HISTORY: Significant for acute respiratory failure, COPD, hepatic encephalopathy, recent Klebsiella bacteremia, recent pleural cavity effusion, alcoholic cirrhosis, Díaz's esophagitis, portal hypertension, BPH, GERD, current open foot wound, ascites, peripheral neuropathy, elevated lipids, history of tubular adenoma of the colon, history of abnormal ABIs. PREVIOUS SURGERIES: Three toes amputated on the right foot, multiple surgeries on right and left feet, third and fourth metatarsal head resections earlier this year. ALLERGIES: KNOWN ALLERGIES TO ADHESIVES, CEPHALOSPORINS, PENICILLIN, LINEZOLID, AND CIPRO. HE STATES HE IS ALLERGIC TO VANCOMYCIN. CURRENT MEDICATIONS: Tylenol p.r.n., albuterol q.6 hours p.r.n., atorvastatin 20 mg p.o. at bedtime, bisacodyl suppositories 10 mg daily p.r.n., Santyl applied topically daily, vitamin B12 q.a.m., Colace 100 mg p.o. b.i.d., fluticasone inhaler 1 puff q.a.m., furosemide 40 mg p.o. b.i.d., gabapentin 100 mg p.o. t.i.d., lactulose 15 mg p.o. q.i.d., Lidoderm patch topical q.a.m., milk of magnesia 30 mL p.o. daily p.r.n., nystatin topically q.i.d., pantoprazole 40 mg p.o. q.a.m., MiraLax 17 grams p.o. p.r.n., prednisone 30 mg p.o. q.a.m., rifaximin 550 mg p.o. b.i.d., Senokot p.r.n., Fleet Enema daily p.r.n., spironolactone 100 mg p.o. b.i.d., sucralfate 1 gram p.o. q.a.m., Flomax 0.4 mg p.o. q.a.m., thiamine 100 mg p.o. q.a.m., Incruse Ellipta inhalation q.a.m., zinc 220 mg p.o. q.a.m. SOCIAL HISTORY: . Unemployed. Smokes half-pack of cigarettes per day, previously 45 pack years. Previous heavy drinker. Last drink was greater than a year ago. Currently on disability. FAMILY HISTORY: Noncontributory. REVIEW OF SYSTEMS: A total of 10 systems are reviewed and are significant for above-stated conditions. PHYSICAL EXAMINATION: VITAL SIGNS: Current vitals are temperature 36.4, BP 117/79, pulse 69, respirations 17, O2 sat 94% on room air. GENERAL: Obese, middle-aged white male in no acute distress. Lying in bed. Alert and oriented. Poor historian. Speech is slightly garbled. SKIN: Skin changes peripherally on the lower extremities consistent with peripheral vascular disease. 2+ pitting edema in both lower extremities, in both feet. Charcot changes to both feet. No redness or warmth. The patient does have a 2.5 cm diameter circular ulceration present on the dorsum of his left foot. It is about the size of a quarter. Granulation tissue is visible in the base. It appears as though it has just been debrided today compared to his films from yesterday. No active bleeding. There is nothing that looks currently infectious. No other areas of skin breakdown. Nothing is expressible. MUSCULOSKELETAL: The patient has intact motor function to the ankles bilaterally. No significant movement of the toes bilaterally. He is missing several toes on the right foot. Significant osteoarthritic changes of both feet. No current discomfort with palpation over the lower extremities. NEUROLOGIC: The patient does have intact sensation to the plantar and dorsal surface of the right foot. He has absent sensation on the dorsum and plantar surface of the left foot. He does have intact sensation to both lower legs. Peripheral pulses are 2+ and surprisingly strong on both lower extremities. DATA: ABIs previously obtained in [place] on 10/22 showed a resting CAITLYN of 1.75 on the right and 0.83 on the left. IMPRESSION: Left lower extremity ulceration. PLAN: The patient was educated regarding today's findings. I will have him see Dr. Solomon for further input. He is not currently in need of surgery given he is afebrile and the wound looks great following wound care. The patient's current labs show significant elevation in his BUN at 51. BUN yesterday was 60. Creatinine is normal at 0.95. No elevation in white count. We will obtain further notes from [place] to assist in determination of course of treatment. He currently has appointments there for 11/18/19 with orthopedics and ID. Continue with antibiotics at this time. I, Dr. Solomon, saw and examined the patient and agree with the above findings and plan of care which was discussed with my PA. Right foot wound looks great, no evidence of active infection. Continue wound care per wound care clinic. Depending on discharge may need to reschedule appointments in [place]. Recommend Vascular consult. Continue care per primary service. Please recall for Orthopedic issues. MTDD
[2019-11-11] MEDS: FUROSEMIDE 40 MG TAB PO SCH (17:35)
--- NOTE | 2019-11-11 21:43 | Hospitalist Progress Note ---
Date of Service November 11, 2019 Assessment & Plan (1) Acute respiratory failure: With acute respiratory failure with hypercarbia, likely due to hypoventilation from elevated ammonia level intubated on admission due to profound lethargy, concerns for inability to protect airway successfully extubated 11/09 breathing well on room air for two days, normal respiratory effort CTA chest negative for PE, had pleural effusion, s/p thoracentesis, transudative (2) Hepatic encephalopathy: Reportedly patient's had a significant issue with his liver from about February 2019 where he is been in and out of [facility] and also [facility]. Most recently discharged from [facility] after a bout of Klebsiella bacteremia from a left foot infection. Family states he has had a recent paracentesis of 6 L which fluid analyzed without evidence of infection. Subsequently patient was sent from there to [facility] where he decompensated. On presentation his ammonia was 200 and he was found gurgling in his bed at rehab, had an absent gag reflex and no response to pain. He was intubated. treated with Lactulose via OG tube while intubated ammonia down to 20's today, he is alert and responsive excessive stools, hold on Lactulose, continue Rifaximin diuretics resumes, diuresing well today, 1000mL negative -Continue rifaximin PO -Follows with hepatology at [place] -Is on IV hydrocortisone here for stress dose steroids and it appears he had been on prednisone prior to admission-unclear if this was for respiratory reasons or hepatic reasons -Follow ammonia level daily acute encephalopathy appears to be resolved for two days (3) Pleural cavity effusion: Will effusion likely may be extension of his ascitic fluid as he is large ascites in his abdomen. Transudative but cultures pending Follow with chest x-ray breathing well today (4) Cirrhosis: Alcoholic cirrhosis with history of esophageal varices and portal hypertension -Continue medications as above and follow-up with hepatology Had paracentesis, albumin only 1.7 continue Lasix and Spironolactone for edema, difficult to remove fluid due to hypoalbuminemia continue Rifaximin plts low at 67, chronic issue (5) COPD (chronic obstructive pulmonary disease): No acute issues -Continue albuterol neb 4 times daily day 4 of Ertapenem, but this is covering Klebsiella foot wound -Restart home inhalers now that he is extubated (6) BPH (benign prostatic hyperplasia): Fully catheter was placed patient typically is on Flomax (7) GERD (gastroesophageal reflux disease): PPI be held and Pepcid to be utilized intravenously (8) Open wound of left foot: Patient is been nursing an open wound in his left foot for some time. He previously has had bones removed according to his family for osteomyelitis secondary to a crush injury that occurred at work. Patient is missing the fourth and fifth toe on the right foot and the fourth toe on the left foot he has a 3 x 5 cm open wound on the dorsum of his left foot that goes down to the fatty tissue. CT scan of the foot suspicious for osteomyelitis of the third proximal phalanx Wound culture growing gram-negative rods -- Klebsiella -Continue ertapenem, day 4 ortho consulted, no plans for debridement, will follow up with ortho and ID at [place] (9) Ascites: As above, status post paracentesis No evidence of SBP continue Lasix and Spironolactone (10) Pancytopenia: Secondary to cirrhosis of liver Follow CBC, Hb and plts low but stable (11) Neuropathy: Severe in bilateral lower extremities -Typically is on gabapentin for this -Restart gabapentin (12) Barretts esophagus: Continue antacid (13) Hyperlipidemia: -Holding home statin for now (14) DVT prophylaxis: SCDs, plts are low at 71k FEN: was on tube feeds until extubated, will get swallow evaluation -- easy to chew foods, liquids with straw Disposition-continued stay in the ICU today, likely to PCU tomorrow morning if he remains stable Admission and Anticipated Discharge Date Admission Date: November 08, 2019 Subjective patient stable over night, no major issues having a lot of stools related to Lactulose discussed with critical care service discussed with wound care as well as orthopedics, no plans for debridement of left foot wound he should follow up with ortho at [place] reviewed labs, ammonia down to 20's, Hb 9, Plts in 60's Cr is 0.9, electrolytes stable, albumin quite low at 1.7 Review of Systems Review of Systems: All systems reviewed & are unremarkable except as noted in Subjective Constitutional: + fatigue and + weakness; no fever Gastrointestinal: + diarrhea/loose stools; no abdominal pain, no nausea, no vomiting and no constipation Physical Exam Constitutional: well developed, well nourished and + obese; no acute distress Eyes: PERRL, conjunctivae normal, anicteric sclerae ENMT: external ear and nose normal, oropharynx normal Neck: trachea midline, no thyromegaly Respiratory: normal respiratory effort; no respiratory distress, no labored breathing and no cough Auscultation: + diminished lung sounds (bases) Cardiovascular: Rate/Rhythm: regular rate and regular rhythm Heart Sounds: normal S1 and normal S2; no murmur Extremities: normal capillary refill and + edema Gastrointestinal (Abdomen): normal bowel sounds, soft, nontender, no hepat osplenomegaly Musculoskeletal: no cyanosis or clubbing, extremities motor strength 5/5 Skin: + turgor decreased, + rash (venous stasis discoloration of legs) and + wound (left dorsal foot) Neurologic: patellar DTR's 2+ bilat, sensation intact and PERRL, EOMI, accommodation nl, no face palsy, no dysarthria Psychiatric: Orientation: alert and oriented x 3 Lymphatic: no cervical or axillary lymphadenopathy Results & Data Results & Data ([facility]) Vital Signs (Past 12 Hours) Vital Signs Temp Pulse Resp BP Pulse Ox 11/11/19 16:00 36.4 C L 79 20 164/64 H 96 11/11/19 15:00 64 20 156/64 H 95 11/11/19 14:00 61 21 139/56 L 94 11/11/19 13:00 69 24 161/74 H 96 11/11/19 12:00 67 21 134/87 93 11/11/19 11:00 66 19 148/71 H 93 11/11/19 10:00 63 19 132/80 94 Laboratory Results Laboratory Results - last 24 hr 11/11/19 11/11/19 11/11/19 04:11 04:11 04:11 WBC 4.87 RBC 2.97 L Hgb 9.2 L Hct 27.6 L MCV 92.9 MCH 31.0 MCHC 33.3 RDW Std Deviation 70.3 H RDW Coeff of Bret 21.5 H Plt Count 67 L MPV 11.6 H Immature Gran % (Auto) 0.4 Neut % (Auto) 77.1 Lymph % (Auto) 7.8 [place] % (Auto) 13.1 Eos % (Auto) 1.6 Baso % (Auto) 0.0 Neut # (Auto) 3.75 Lymph # (Auto) 0.38 L [place] # (Auto) 0.64 H Eos # (Auto) 0.08 Baso # (Auto) 0.00 Immature Gran # (Auto) 0.02 Platelet Estimate Decreased L Anisocytosis Present ESR 27 H Sodium 142 Potassium 3.6 Chloride 113 H Carbon Dioxide 23 Anion Gap 6.0 BUN 51 H Creatinine 0.95 Est Cr Clr Drug Dosing 115.3 Est GFR ( Amer) 101.9 Est GFR (Non-Af Amer) 87.9 BUN/Creatinine Ratio 53.4 H Glucose 93 Calcium 7.8 L Phosphorus 3.3 D Magnesium 2.1 Total Bilirubin 1.3 H Direct Bilirubin 0.6 H AST 32 ALT 27 Alkaline Phosphatase 120 H Ammonia C-Reactive Protein Total Protein 6.1 L Albumin 1.7 L 11/11/19 11/11/19 04:11 07:17 WBC RBC Hgb Hct MCV MCH MCHC RDW Std Deviation RDW Coeff of Bret Plt Count MPV Immature Gran % (Auto) Neut % (Auto) Lymph % (Auto) [place] % (Auto) Eos % (Auto) Baso % (Auto) Neut # (Auto) Lymph # (Auto) [place] # (Auto) Eos # (Auto) Baso # (Auto) Immature Gran # (Auto) Platelet Estimate Anisocytosis ESR Sodium Potassium Chloride Carbon Dioxide Anion Gap BUN Creatinine Est Cr Clr Drug Dosing Est GFR ( Amer) Est GFR (Non-Af Amer) BUN/Creatinine Ratio Glucose Calcium Phosphorus Magnesium Total Bilirubin Direct Bilirubin AST ALT Alkaline Phosphatase Ammonia 16.6 C-Reactive Protein 2.32 H Total Protein Albumin Medications Administered Current Inpatient Medications Albuterol (Albut/Ipratrop 3mg/0.5mg Neb 3 Ml Vial) 3 ml NEB QIDR PRN PRN Reason: Shortness Of Breath Or Wheezing Stop: 12/08/19 12:20 Enoxaparin Sodium (Enoxaparin Inj 40 Mg/0.4 Ml Syr) 40 mg SQ QAM [facility]AD[facility]N Stop: 12/10/19 10:14 Last Admin: 11/11/19 08:15 Dose: 40 mg Documented by: Furosemide (Furosemide 40 Mg Tab) 40 mg PO [id number] MADELYN Stop: 12/11/19 16:59 Last Admin: 11/11/19 17:35 Dose: 40 mg Documented by: Heparin Sodium (Beef Lung) (Heparin 10 Unit/Ml 5 Ml Flush) 5 ml FLUSH PRN PRN PRN Reason: Flush Stop: 12/08/19 23:57 Ertapenem 1,000 mg/ Sodium (Chloride) 60 mls @ 100 mls/hr IV Q24H MADELYN Stop: 11/15/19 07:59 Last Infusion: 11/11/19 10:12 Dose: Infused Documented by: Lactulose (Lactulose Syrup 30 Gm/45 Ml Udp) 30 gm PO BID MADELYN Stop: 12/08/19 13:14 Last Admin: 11/11/19 08:15 Dose: 30 gm Documented by: Miscellaneous (Icu Electrolyte Replacement Protocol) 1 ea N/A UD PRN PRN Reason: for e-lyte repletion Stop: 11/15/19 12:20 Pantoprazole Sodium (Pantoprazole 40 Mg Tab) 40 mg PO QAM [facility] Stop: 12/12/19 08:59 Potassium Chloride (Potassium Chloride 10 Meq Tabcr) [facility] Stop: 12/12/19 08:59 Prednisone (Prednisone 10 Mg Tablet) [facility] Stop: 11/12/19 11:59 Last Admin: 11/11/19 08:15 Dose: 10 mg Documented by: Rifaximin (Rifaximin 550 Mg Tablet) 550 mg NG BID [facility] Stop: 12/08/19 12:20 Last Admin: 11/11/19 21:10 Dose: 550 mg Documented by: Spironolactone (Spironolactone 25 Mg Tab) 25 mg PO QAM [facility] Stop: 12/09/19 08:59 Last Admin: 11/11/19 08:14 Dose: 25 mg Documented by: PG Care Time/CCT Total # of Minutes Spent Total Time Spent with Patient: Total time spent is greater than 50% in coordination of care (as documented) at patient's floor/unit and/or counseling patient: Coding Level of Care Code 17632 Subseq Hosp Care Lvl 3 Diagnoses Acute respiratory failure J96.00 Hepatic encephalopathy K72.90 Pleural cavity effusion J90 Cirrhosis K74.60 COPD (chronic obstructive pulmonary disease) J44.9 BPH (benign prostatic hyperplasia) N40.0 GERD (gastroesophageal reflux disease) K21.9 Open wound of left foot S91.302D Encounter type: subsequent encounter Ascites R18.8 Pancytopenia D61.818 Neuropathy G62.9 Barretts esophagus K22.70 Hyperlipidemia E78.5 DVT prophylaxis Z29.9 (1) Open wound of left foot Encounter type: subsequent encounter Qualified Code(s): S91.302D - Unspecified open wound, left foot, subsequent encounter
[2019-11-12] MEDS: ERTAPENEM SODIUM 1,000 MG in SODIUM CHLORIDE 0.9% 50 ML IV SCH (07:56)
[2019-11-12] MEDS: SPIRONOLACTONE 25 MG TAB PO SCH (07:57)
[2019-11-12] MEDS: POTASSIUM CHLORIDE 10 MEQ TABCR PO SCH (07:57)
[2019-11-12] MEDS: FUROSEMIDE 40 MG TAB PO SCH ×2 (07:57→15:53)
[2019-11-12] MEDS: PANTOprazole 40 MG TAB PO SCH (07:58)
[2019-11-12] MEDS: predniSONE 10 MG TABLET PO SCH (07:58)
[2019-11-12] MEDS: RIFAXIMIN 550 MG TABLET NG SCH ×2 (07:58→20:35)
[2019-11-12] MEDS: ENOXAPARIN INJ 40 MG/0.4 ML SYR SQ SCH (07:58)
[2019-11-12 08:02] LABS: Hematocrit (blood only) 29.6 % (42-52); Hemoglobin 9.7 g/dL (14.0-18.0); Mean Corpuscular Hemoglobin 30.7 pg (25-34); Mean Corpuscular Hgb Conc 32.8 g/dL (32-36); Mean Corpuscular Volume 93.7 fL (80-100); RDW Coefficient of Variation 21.4 % (11.5-14.5); RDW Standard Deviation 71.2 fL (36.4-46.3); Red Blood Count 3.16 M/uL (4.7-6.1); White Blood Count 5.54 K/uL (4.8-10.8)
--- NOTE | 2019-11-12 08:04 | Critical Care Progress Note ---
Date of Service November 12, 2019 Assessment & Plan (1) Hepatic encephalopathy: 58-year-old male with history of alcoholic cirrhosis admitted with profound exacerbation of his hepatic encephalopathy. The etiology is somewhat unclear, given unimpressive paracentesis. No signs of GI bleeding to account for markedly increased ammonia level. Stable for downgrade from ICU following continued improvement in condition. Neuro: - CAM ICU negative Cardiac/Vascular: - Volume remains up despite net negative .78L in the last 24 hours; likely contributions from low protein and low albumin - continue spironolactone and home furosemide - started Valsartan 80mg qAM Respiratory: - Acute hypercarbic respiratory failure likely secondary to hepatic encephalopathy. - maintained on room air overnight without decompensation - completed Prednisone taper - Pleural fluid demonstrated tobin sensitive coag negative staph and enterococcus avium - Ertapenem day#07/19, after completion of antibiotic course will need repeat thoracentesis for evaluation of pleural fluid GI/Nutrition: - Alcoholic cirrhosis: continue rifaximin; hold lactulose given extensive stool output - Ammonia continuing to downtrend this AM - Etiology of his decompensation somewhat unclear - Paracentesis fluid inconsistent with SBP, however patient was pre-treated with antibiotics - Speech eval: tolerated thin liquids through straw, recommended easy to chew diet Renal/Lytes: - Cr stable at 0.84 - continue KCl 10meq daily - continue home PO furosemide regimen - continue to monitor electrolytes ENDO: - Glycemic control per ICU protocol. No prior history of diabetes. HEME: - Hgb stable at 9.7, Platelets stable at 70 - No signs of bleeding and no indication for transfusion ID: - Foot ulcer demonstrating Klebsiella pneumoniae on culture - CT findings noted. - Wound, Ortho, and Vascular consulted - Day #07/19 Ertapenem Lines/IV Access: - PIV x1 DVT Prophylaxis: - Lovenox Admission and Anticipated Discharge Date Admission Date: November 08, 2019 Supervising Physician Co-Signing Physician Notes Dr. Napier was resident physician during care of patient. I separately evaluated patient for jenkins portions of the history and the exam. I was present during the critical portion of medical decision making, and I discussed the case with the resident. I generally agree with the findings and plan. Mental status very much improved. Last EGD appears to be 2014. Will encourage follow-up with [facility] hepatology. Patient does have growth of organisms from pleural fluid. Will treat with 10 days of IV antibiotics, this should also provide coverage for possible lower extremity skin and soft tissue infection. Wound has debrided the area and orthopedics does not feel urgent surgical management is needed at this time. Patient will need repeat imaging to evaluate if the pleural effusion resolves or if there is interval development of loculation. He may likely require repeat thoracentesis and if the fluid is not sterile or there is evidence of loculation he would benefit from tube drainage with fibrinolysis instillation. Patient is stable for downgrade out of ICU. Subjective Patient had no acute events overnight, continued to have improvement in mentation and is able to communicate more fluidly than previously, continues to have elevated blood pressures. Denies chest pain, shortness of breath, fever, chills, abdominal pain, nausea, vomiting, headache, dizziness, and changes in vision. Review of Systems Review of Systems: All systems reviewed & are unremarkable except as noted in Subjective Physical Exam Constitutional: WD/WN, vitals as above Eyes: PERRL, conjunctivae normal, anicteric sclerae Neck: trachea midline, no thyromegaly Respiratory: normal respiratory effort; no respiratory distress and no labored breathing Auscultation: lungs clear to auscultation bilaterally Cardiovascular: Rate/Rhythm: regular rate and regular rhythm Heart Sounds: no gallop, no murmur and no cardiac rub Vessels: normal peripheral pulses Gastrointestinal (Abdomen): normal bowel sounds, soft, nontender, no h epatosplenomegaly Musculoskeletal: Extremities: extremities normal to inspection Skin: no rashes, warm and dry + wound (dorsal surface of L foot) Psychiatric: A+Ox3, euthymic affect Lymphatic: no cervical lymphadenopathy Results & Data Results & Data ([facility]) Vital Signs (Past 12 Hours) Vital Signs Temp Pulse Resp BP Pulse Ox 11/12/19 07:07 149/60 H 11/12/19 07:00 63 11 L 11/12/19 06:07 58 L 21 145/64 H 11/12/19 06:00 58 L 16 11/12/19 05:08 58 L 18 138/63 11/12/19 05:00 59 L 19 11/12/19 04:07 61 19 122/68 11/12/19 04:00 36.7 C 67 21 11/12/19 03:07 59 L 17 140/69 11/12/19 03:00 56 L 18 11/12/19 02:00 57 L 15 11/12/19 01:07 60 16 143/69 H 11/12/19 01:00 62 20 11/12/19 00:08 74 17 134/69 91 11/12/19 00:00 36.6 C 58 L 14 93 11/11/19 23:07 59 L 17 155/68 H 92 11/11/19 23:00 56 L 14 92 11/11/19 22:07 58 L 15 156/74 H 92 11/11/19 22:00 58 L 16 93 11/11/19 21:09 57 L 20 96 11/11/19 21:08 55 L 19 157/61 H 95 11/11/19 20:08 36.5 C 59 L 18 148/71 H 95 Laboratory Results 11/12/19 11/12/19 11/12/19 Range/Units 07:53 07:53 07:53 WBC (4.8-10.8) K/uL RBC (4.7-6.1) M/uL Hgb (14.0-18.0) g/dL Hct (42-52) % MCV (80-100) fL MCH (25-34) pg MCHC (32-36) g/dL RDW Std Deviation (36.4-46.3) fL RDW Coeff of Bret (11.5-14.5) % Plt Count (130-400) K/uL MPV (7.4-10.4) fL Immature Gran % (Auto) % Neut % (Auto) % Lymph % (Auto) % [place] % (Auto) % Eos % (Auto) % Baso % (Auto) % Neut # (Auto) (1.4-6.5) K/uL Lymph # (Auto) (1.2-3.4) K/uL [place] # (Auto) (0.11-0.59) K/uL Eos # (Auto) (0-0.5) K/uL Baso # (Auto) (0-0.2) K/uL Immature Gran # (Auto) (0.00-0.02) K/uL Anisocytosis Target Cells Sodium 140 (136-145) mmol/L Potassium 3.6 (3.5-5.1) mmol/L Chloride 110 H (98-107) mmol/L Carbon Dioxide 23 (21-32) mmol/L Anion Gap 7.0 (3-11) BUN 37 H (7-18) mg/dl Creatinine 0.84 (0.6-1.4) mg/dl Est Cr Clr Drug Dosing 128.0 ml/min Est GFR ( Amer) 111.9 Est GFR (Non-Af Amer) 96.5 BUN/Creatinine Ratio 44.0 H (10-20) Glucose 86 (70-99) mg/dl Calcium 8.1 L (8.5-10.1) mg/dl Phosphorus 2.6 (2.5-4.9) mg/dl Magnesium 1.9 (1.8-2.4) mg/dl Total Bilirubin 1.5 H (0.2-1) mg/dl AST 38 H (15-37) U/L ALT 31 (12-78) U/L Alkaline Phosphatase 132 H (45-117) U/L Ammonia 19.1 (11-32) umol/L Total Protein 6.4 (6.4-8.2) gm/dl Albumin 1.8 L (3.4-5.0) gm/dl Globulin 4.6 H (2.5-4.0) gm/dl Albumin/Globulin Ratio 0.4 L (0.9-2) 11/12/19 Range/Units 07:53 WBC 5.54 (4.8-10.8) K/uL RBC 3.16 L (4.7-6.1) M/uL Hgb 9.7 L (14.0-18.0) g/dL Hct 29.6 L (42-52) % MCV 93.7 (80-100) fL MCH 30.7 (25-34) pg MCHC 32.8 (32-36) g/dL RDW Std Deviation 71.2 H (36.4-46.3) fL RDW Coeff of Bret 21.4 H (11.5-14.5) % Plt Count 70 L (130-400) K/uL MPV 10.5 H (7.4-10.4) fL Immature Gran % (Auto) 0.7 % Neut % (Auto) 70.0 % Lymph % (Auto) 13.0 % [place] % (Auto) 12.3 % Eos % (Auto) 3.8 % Baso % (Auto) 0.2 % Neut # (Auto) 3.88 (1.4-6.5) K/uL Lymph # (Auto) 0.72 L (1.2-3.4) K/uL [place] # (Auto) 0.68 H (0.11-0.59) K/uL Eos # (Auto) 0.21 (0-0.5) K/uL Baso # (Auto) 0.01 (0-0.2) K/uL Immature Gran # (Auto) 0.04 H (0.00-0.02) K/uL Anisocytosis Present Target Cells 1+ Sodium (136-145) mmol/L Potassium (3.5-5.1) mmol/L Chloride (98-107) mmol/L Carbon Dioxide (21-32) mmol/L Anion Gap (3-11) BUN (7-18) mg/dl Creatinine (0.6-1.4) mg/dl Est Cr Clr Drug Dosing ml/min Est GFR ( Amer) Est GFR (Non-Af Amer) BUN/Creatinine Ratio (10-20) Glucose (70-99) mg/dl Calcium (8.5-10.1) mg/dl Phosphorus (2.5-4.9) mg/dl Magnesium (1.8-2.4) mg/dl Total Bilirubin (0.2-1) mg/dl AST (15-37) U/L ALT (12-78) U/L Alkaline Phosphatase (45-117) U/L Ammonia (11-32) umol/L Total Protein (6.4-8.2) gm/dl Albumin (3.4-5.0) gm/dl Globulin (2.5-4.0) gm/dl Albumin/Globulin Ratio (0.9-2) Medications Administered Current Inpatient Medications Albuterol (Albut/Ipratrop 3mg/0.5mg Neb 3 Ml Vial) 3 ml NEB QIDR PRN PRN Reason: Shortness Of Breath Or Wheezing Stop: 12/08/19 12:20 Enoxaparin Sodium (Enoxaparin Inj 40 Mg/0.4 Ml Syr) 40 mg SQ QAM [facility] Stop: 12/10/19 10:14 Last Admin: 11/12/19 07:58 Dose: 40 mg Documented by: Furosemide (Furosemide 40 Mg Tab) 40 mg PO [id number] [facility] Stop: 12/11/19 16:59 Last Admin: 11/12/19 07:57 Dose: 40 mg Documented by: Heparin Sodium (Beef Lung) (Heparin 10 Unit/Ml 5 Ml Flush) 5 ml FLUSH PRN PRN PRN Reason: Flush Stop: 12/08/19 23:57 Ertapenem 1,000 mg/ Sodium (Chloride) 60 mls @ 100 mls/hr IV Q24H [facility] Stop: 11/17/19 07:59 Last Infusion: 11/12/19 08:57 Dose: Infused Documented by: Lactulose (Lactulose Syrup 30 Gm/45 Ml Udp) [facility] Stop: 12/13/19 08:59 Magnesium Oxide (Magnesium Oxide 400 Mg Tab) 400 mg PO Q4H [facility] Stop: 11/12/19 14:01 Last Admin: 11/12/19 09:46 Dose: 400 mg Documented by: Miscellaneous (Icu Electrolyte Replacement Protocol) 1 ea N/A UD PRN PRN Reason: for e-lyte repletion Stop: 11/15/19 12:20 Pantoprazole Sodium (Pantoprazole 40 Mg Tab) [facility] Stop: 12/12/19 08:59 Last Admin: 11/12/19 07:58 Dose: 40 mg Documented by: Potassium Chloride (Potassium Chloride 10 Meq Tabcr) 10 meq [facility] Stop: 12/12/19 08:59 Last Admin: 11/12/19 07:57 Dose: 10 meq Documented by: Potassium Chloride (Potassium Chloride 20 Meq Tabcr) 20 meq PO Q4H [facility] Stop: 11/12/19 13:31 Last Admin: 11/12/19 09:44 Dose: 20 meq Documented by: Prednisone (Prednisone 10 Mg Tablet) [facility] Stop: 11/12/19 11:59 Last Admin: 11/12/19 07:58 Dose: 10 mg Documented by: Rifaximin (Rifaximin 550 Mg Tablet) 550 mg NG BID [facility] Stop: 12/08/19 12:20 Last Admin: 11/12/19 07:58 Dose: 550 mg Documented by: Spironolactone (Spironolactone 25 Mg Tab) [facility] [place] Stop: 12/09/19 08:59 Last Admin: 11/12/19 07:57 Dose: 25 mg Documented by: Valsartan (Valsartan 80 Mg Tab) 80 [facility] Stop: 12/12/19 09:59 Resident Activity Tracking Resident Involvement: Resident Care Provided Care Provided: Adult Hospital Medicine (Critical Care)
[2019-11-12 08:08] LABS: Mean Platelet Volume 10.5 fL (7.4-10.4); Platelet Count 70 K/uL (130-400)
[2019-11-12 08:21] LABS: Albumin Level 1.8 gm/dl (3.4-5.0); Calcium 8.1 mg/dl (8.5-10.1); Est GFR (African American) 111.9; Est GFR (Non-African American) 96.5; Potassium 3.6 mmol/L (3.5-5.1)
[2019-11-12 08:24] LABS: Albumin Globulin Ratio 0.4 (0.9-2); Bilirubin,Total 1.5 mg/dl (0.2-1); Globulin 4.6 gm/dl (2.5-4.0); Total Protein 6.4 gm/dl (6.4-8.2)
[2019-11-12 08:26] LABS: Anisocytosis Present; Basophils # (auto) 0.01 K/uL (0-0.2); Basophils % (auto) 0.2 %; Eosinophils # (auto) 0.21 K/uL (0-0.5); Eosinophils % (auto) 3.8 %; Immature Granulocytes # (auto) 0.04 K/uL (0.00-0.02); Immature Granulocytes % (auto) 0.7 %; Lymphocytes # (auto) 0.72 K/uL (1.2-3.4); Monocytes # (auto) 0.68 K/uL (0.11-0.59); Monocytes % (auto) 12.3 %; Neutrophils # (auto) 3.88 K/uL (1.4-6.5); Target Cells 1+
[2019-11-12] MEDS: LACTULOSE SYRUP 30 GM/45 ML UDP PO SCH (08:59)
[2019-11-12] MEDS ORDERED: Nursing to Pharmacy Communication SCH ×2 (09:15→09:30)
[2019-11-12 09:17] LABS: Magnesium 1.9 mg/dl (1.8-2.4); Phosphorus 2.6 mg/dl (2.5-4.9)
[2019-11-12] MEDS: POTASSIUM CHLORIDE 20 MEQ TABCR PO SCH ×2 (09:44→15:52)
[2019-11-12] MEDS: MAGNESIUM OXIDE 400 MG TAB PO SCH ×2 (09:46→17:10)
--- NOTE | 2019-11-12 10:00 | Billing Data ---
Date of Service November 12, 2019 Coding Level of Care Code 12270 Subseq Hosp Care Lvl 3
[2019-11-12] MEDS: VALSARTAN 80 MG TAB PO SCH (11:34)
--- NOTE | 2019-11-12 12:53 | Consultation ---
Date of Consultation November 12, 2019 Assessment & Plan (1) Peripheral arterial disease: Pt with mild/moderate PAD noted on US from [facility], and excellent doppler signals to feet and no sign of ischemia. Recommend local wound care to L foot wound by wound clinic. No indications for vascular surgical intervention at this time. Please call if needed. Patient was seen, examined, and chart reviewed. Agree with exam and treatment plan of the Vascular PA. History of Present Illness Reason for Consultation: LLE wound, PAD Attending Physician: Tee Lara DO History of Present Illness 58 yo m with multiple medical problems, including alcoholic liver cirrhosis, COPD, GERD, BPH, hyperlipidemia, admitted with acute hepatic encephalopathy, seen in consultation today for PAD in association with L foot wound that has taken some time to heal. Pt is poor historian secondary to intermittent AMS, but states he had surgery to remove bones from l foot a few months ago and that it was healed at one time, but opened up again and became infected. Has been on abx, but does not know which ones. [place] [facility] [place] and no intervention was recommended at that time. Admits pain in L foot wound, but denies any other significant complaints presently. Pt denies GARCIA, fever, chest pain, SOB, abd pain, N/V, rest pain, hx of claudication, other complaints. Does not ambulate since left foot wound opened back up, but previously had been ambulating with cane. [place] [facility] [place] mild/moderate diffuse disease of BLE without focal stenosis. RLE CAITLYN 0.75 and LLE CAITLYN was 0.83. Allergies Allergy/AdvReac Type Severity Reaction Status Date / Time adhesive tape Allergy Unknown Unknown Unverified 11/09/19 17:17 Cephalosporins Allergy Unknown Unknown Unverified 11/08/19 08:48 ciprofloxacin Allergy Unknown Unknown Unverified 11/08/19 08:48 linezolid Allergy Unknown Unknown Unverified 11/08/19 08:48 vancomycin Allergy Unknown Hives Verified 11/08/19 15:19 Home Medications Home Medications Medication Instructions Recorded Confirmed Type acetaminophen [Tylenol] 650 mg PO QID PRN 11/08/19 11/08/19 History albuterol sulfate 2 puff INHALATION Q6 PRN 11/08/19 11/08/19 History atorvastatin 20 mg PO HS 11/08/19 11/08/19 History bisacodyl 10 mg MS DAILY PRN 11/08/19 11/08/19 History collagenase clostridium histo. 1 applic TOPICAL DAILY 11/08/19 11/08/19 History [Santyl] cyanocobalamin (vitamin B-12) 500 mcg PO QAM 11/08/19 11/08/19 History dextromethorphan-guaifenesin 10 ml PO Q6H PRN 11/08/19 11/08/19 History docusate sodium 100 mg PO BID 11/08/19 11/08/19 History fluticasone furoate-vilanterol 1 inh INHALATION QAM 11/08/19 11/08/19 History furosemide 40 mg PO BID 11/08/19 11/08/19 History gabapentin 100 mg PO TID 11/08/19 11/08/19 History lactulose 15 ml PO QID 11/08/19 11/08/19 History lidocaine [Lidoderm] 2 patch TOPICAL QAM 11/08/19 11/08/19 History magnesium hydroxide [Milk of 30 ml PO DAILY PRN 11/08/19 11/08/19 History Magnesia] nystatin 1 applic TOPICAL QID 11/08/19 11/08/19 History pantoprazole 40 mg PO QAM 11/08/19 11/08/19 History polyethylene glycol 3350 [Miralax] 17 g PO QDL PRN 11/08/19 11/08/19 History prednisone 30 mg PO QAM 11/08/19 11/08/19 History rifaximin [Xifaxan] 550 mg PO BID 11/08/19 11/08/19 History sennosides-docusate sodium 1 tab-cap PO QDL PRN 11/08/19 11/08/19 History [Senokot-S] sodium phosphates [Fleet Enema] 133 ml MS DAILY PRN 11/08/19 11/08/19 History spironolactone 100 mg PO BID 11/08/19 11/08/19 History sucralfate 1 g PO QAM 11/08/19 11/08/19 History tamsulosin 0.4 mg PO QAM 11/08/19 11/08/19 History thiamine HCl (vitamin B1) 100 mg PO QAM 11/08/19 11/08/19 History umeclidinium [Incruse Ellipta] 1 inh INHALATION QAM 11/08/19 11/08/19 History zinc sulfate 220 mg PO QAM 11/08/19 11/08/19 History Patient History Medical History (Updated 11/12/19 @ 13:03 by Lindsay Castillo PA-C) Ascites Barretts esophagus BPH (benign prostatic hyperplasia) Cirrhosis COPD (chronic obstructive pulmonary disease) GERD (gastroesophageal reflux disease) Hyperlipidemia Neuropathy Pancytopenia Peripheral arterial disease Social History Smoking Status: Unknown if ever smoked Preferred Language: [place] Communication Ability: Unable Communication Ability Comment: sedated, intubated Personal Chef Required: No Beliefs That Will Affect Care: None Current Living Situation: Spouse Current Living Situation Comment: currently at [facility] Other Information That Helps Us Care for You: No Feels Safe at Home: Declines to Answer Review of Systems Review of Systems: All systems reviewed & are unremarkable except as noted in HPI & below Physical Exam Constitutional: well developed, well nourished, + ill appearing (chronically ), + morbidly obese, + disheveled, cooperative and comfortable; not in distress ENMT: Ears: no hearing impairment Nose: no external nose abnormality Neck: normal visual inspection and trachea midline Respiratory: normal respiratory effort Auscultation: + diminished lung sounds and + crackles (mild basilar) Cardiovascular: Rate/Rhythm: regular rate and regular rhythm Vessels: femoral pulses present, posterior tibial pulses present (easily found with doppler, biphasic), dorsalis pedis pulses present (easily found with doppler, biphasic), brachial pulses present and radial pulses present; + abnormal peripheral pulses Extremities: normal capillary refill and + edema (venous stasis changes BLE) Gastrointestinal (Abdomen): Inspection/Auscultation: + abdomen distended and normal bowel sounds Percussion/Palpation: abdomen nontender Musculoskeletal: no cyanosis or clubbing, extremities motor strength 5/5 Skin: + wound (L dorsal foot, 2cm, good granulation, no erythema/draiange); no rashes Neurologic: moves all extremities, awake and + confused (very mildly); no focal motor deficits Psychiatric: A+Ox3, euthymic affect Results & Data ([facility]) Vital Signs (Past 12 Hours) Vital Signs Temp Pulse Resp BP Pulse Ox 11/12/19 09:00 63 17 164/73 H 94 11/12/19 08:07 36.6 C 157/80 H 11/12/19 07:07 149/60 H 11/12/19 07:00 63 11 L 11/12/19 06:07 58 L 21 145/64 H 11/12/19 06:00 58 L 16 11/12/19 05:08 58 L 18 138/63 11/12/19 05:00 59 L 19 11/12/19 04:07 61 19 122/68 11/12/19 04:00 36.7 C 67 21 11/12/19 03:07 59 L 17 140/69 11/12/19 03:00 56 L 18 11/12/19 02:00 57 L 15 11/12/19 01:07 60 16 143/69 H 11/12/19 01:00 62 20
--- NOTE | 2019-11-12 15:29 | Consultation Report ---
DATE OF CONSULTATION: 11/12/2019 CHIEF COMPLAINT: Left lower extremity open wound/foot ulcer. HISTORY OF PRESENT ILLNESS: The patient is lying in bed with bilateral lower extremity air____ foot pumps donned. He is awake. He states that he is not having any foot pain. He states that he would like to go home before his birthday on the . He makes mention of his medical doctor who he would like to follow for his wound issues. I did mention he has an appointment in [place], which he did not seem to be aware of, for followup of his foot issues and vascular. The patient otherwise had no complaints for me today. PHYSICAL EXAMINATION: The patient is lying in bed with bilateral lower extremity air foot pumps donned, socks were donned to bilateral lower extremities as well, to the left foot dressing covered the volar open wound/ulcer. Bilateral lower extremity reveals skin changes peripherally consistent with history of peripheral vascular disease. 2+ pitting edema to both lower extremities, slightly worse, however, on the left than the right. He had no cyanosis or clubbing. He was able to move his feet and ankles and knees. No focal motor deficits were noted. He has grossly 5/5 bilateral EHL, tibialis anterior and gastroc strength. The patient had no significant redness or warmth. The patient had palpable peripheral pulses, dorsalis pedis and posterior tibial at 2+. Sensation was altered to the dorsum and plantar surface of the left foot, intact on the right. He also has significant osteoarthritic changes to both of his feet. Missing several toes to the right foot. Evaluation of the wound revealed that he does have a wound to the volar aspect of his left foot approximately 2 cm. There is noted good granulation, no erythema or drainage. The area was packed and has been treated by wound care yesterday on the . IMPRESSION: Left foot open wound/ulcer. PLAN: I did review the vascular consult and spoke to Dr. Solomon. He is recommending continuing with IV antibiotics. He is recommending continuation of wound care and upon discharge to follow with wound clinic as well as the scheduled appointments in [place] with vascular, infectious disease and orthopedics. We are not recommending surgical intervention at this time. However, if things change, please do not hesitate to contact Dr. Solomon. Activity as tolerated.
--- NOTE | 2019-11-12 20:40 | Hospitalist Progress Note ---
Date of Service November 12, 2019 Assessment & Plan (1) Acute respiratory failure: With acute respiratory failure with hypercarbia, likely due to hypoventilation from elevated ammonia level intubated on admission due to profound lethargy, concerns for inability to protect airway successfully extubated 11/09 breathing well on room air for three days, normal respiratory effort CTA chest negative for PE, had pleural effusion, s/p thoracentesis, transudative (2) Hepatic encephalopathy: Reportedly patient's had a significant issue with his liver from about February 2019 where he is been in and out of [facility] and also [facility]. Most recently discharged from [facility] after a bout of Klebsiella bacteremia from a left foot infection. Family states he has had a recent paracentesis of 6 L which fluid analyzed without evidence of infection. Subsequently patient was sent from there [facility] where he decompensated. On presentation his ammonia was 200 and he was found gurgling in his bed at [facility], had an absent gag reflex and no response to pain. He was intubated. treated with Lactulose via OG tube while intubated ammonia down to 19 today, he is alert and responsive excessive stools, reduce Lactulose, continue Rifaximin diuretics resumes, diuresing well for two days -Continue rifaximin PO -Follows with hepatology at [facility] -Is on IV hydrocortisone here for stress dose steroids and it appears he had been on prednisone prior to admission-unclear if this was for respiratory reasons or hepatic reasons -Follow ammonia level daily acute encephalopathy appears to be resolved (3) Pleural cavity effusion: could be extension of his ascites fluid. Transudative but cultures growing coag negative staph, enterococcus will treat with 10 days of antibiotics, repeat thoracentesis Follow with chest x-ray breathing well today (4) Cirrhosis: Alcoholic cirrhosis with history of esophageal varices and portal hypertension -Continue medications as above and follow-up with hepatology Had paracentesis, albumin only 1.7 continue Lasix and Spironolactone for edema, difficult to remove fluid due to hypoalbuminemia continue Rifaximin plts low at 70, chronic issue (5) COPD (chronic obstructive pulmonary disease): No acute issues -Continue albuterol neb 4 times daily day 4 of Ertapenem, but this is covering Klebsiella foot wound and pleural fluid infection -Restart home inhalers now that he is extubated (6) BPH (benign prostatic hyperplasia): Fully catheter was placed patient typically is on Flomax (7) GERD (gastroesophageal reflux disease): PPI be held and Pepcid to be utilized intravenously (8) Open wound of left foot: Patient is been nursing an open wound in his left foot for some time. He previously has had bones removed according to his family for osteomyelitis secondary to a crush injury that occurred at work. Patient is missing the fourth and fifth toe on the right foot and the fourth toe on the left foot he has a 3 x 5 cm open wound on the dorsum of his left foot that goes down to the fatty tissue. CT scan of the foot suspicious for osteomyelitis of the third proximal phalanx Wound culture growing gram-negative rods -- Klebsiella -Continue ertapenem, day 5 ortho consulted, no plans for debridement, will follow up with ortho and ID at [facility] vascular consult, patient with adequate blood flow to extremities for healing (9) Ascites: As above, status post paracentesis No evidence of SBP continue Lasix and Spironolactone (10) Pancytopenia: Secondary to cirrhosis of liver Follow CBC, Hb and plts low but stable (11) Neuropathy: Severe in bilateral lower extremities -Typically is on gabapentin for this -Restart gabapentin (12) Barretts esophagus: Continue antacid (13) Hyperlipidemia: -Holding home statin for now (14) DVT prophylaxis: SCDs, plts are low at 70k FEN: was on tube feeds until extubated, will get swallow evaluation -- easy to chew foods, liquids with straw Disposition- transfer to medical tele, will ask PT/OT to evaluate Admission and Anticipated Discharge Date Admission Date: November 08, 2019 Subjective patient doing fine today, no acute issues over night eating well, breathing is stable, he is moving his bowels frequently, they are loose reviewed labs, WBC 5k, Hb is 9.7, plts 70k BMP with Cr of 0.8 and stable electrolytes, ammonia [address] Aleman, will transfer out of ICU he recommends 10 days of IV antibiotics and consider repeat thoracentesis pleural fluid growing coag neg staph and enterococcus Review of Systems Review of Systems: All systems reviewed & are unremarkable except as noted in Subjective Physical Exam Constitutional: well developed, well nourished and + obese; no acute distress Eyes: PERRL, conjunctivae normal, anicteric sclerae ENMT: external ear and nose normal, oropharynx normal Neck: trachea midline, no thyromegaly Respiratory: normal respiratory effort; no respiratory distress, no labored breathing and no cough Auscultation: + diminished lung sounds (bases) Cardiovascular: Rate/Rhythm: regular rate and regular rhythm Heart Sounds: normal S1 and normal S2; no murmur Extremities: normal capillary refill and + edema Gastrointestinal (Abdomen): normal bowel sounds, soft, nontender, no hepatosplenomegaly Musculoskeletal: no cyanosis or clubbing, extremities motor strength 5/5 Skin: + turgor decreased, + rash (venous stasis discoloration of legs) and + wound (left dorsal foot) Neurologic: patellar DTR's 2+ bilat, sensation intact and PERRL, EOMI, accommodation nl, no face palsy, no dysarthria Psychiatric: Orientation: alert and oriented x 3 Lymphatic: no cervical or axillary lymphadenopathy Results & Data Results & Data ([facility]) Vital Signs (Past 12 Hours) Vital Signs Temp Pulse Resp BP Pulse Ox 11/12/19 19:30 36.9 C 63 20 120/63 95 11/12/19 15:40 36.7 C 61 18 145/72 H 96 11/12/19 11:48 36.5 C 57 L 20 144/77 H 96 11/12/19 09:00 63 17 164/73 H 94 Laboratory Results Laboratory Results - last 24 hr 11/12/19 11/12/19 11/12/19 07:53 07:53 07:53 WBC 5.54 RBC 3.16 L Hgb 9.7 L Hct 29.6 L MCV 93.7 MCH 30.7 MCHC 32.8 RDW Std Deviation 71.2 H RDW Coeff of Bret 21.4 H Plt Count 70 L MPV 10.5 H Immature Gran % (Auto) 0.7 Neut % (Auto) 70.0 Lymph % (Auto) 13.0 [place] % (Auto) 12.3 Eos % (Auto) 3.8 Baso % (Auto) 0.2 Neut # (Auto) 3.88 Lymph # (Auto) 0.72 L [place] # (Auto) 0.68 H Eos # (Auto) 0.21 Baso # (Auto) 0.01 Immature Gran # (Auto) 0.04 H Anisocytosis Present Target Cells 1+ Sodium 140 Potassium 3.6 Chloride 110 H Carbon Dioxide 23 Anion Gap 7.0 BUN 37 H Creatinine 0.84 Est Cr Clr Drug Dosing 128.0 Est GFR ( Amer) 111.9 Est GFR (Non-Af Amer) 96.5 BUN/Creatinine Ratio 44.0 H Glucose 86 POC Glucose Calcium 8.1 L Phosphorus Magnesium Total Bilirubin 1.5 H AST 38 H ALT 31 Alkaline Phosphatase 132 H Ammonia 19.1 Total Protein 6.4 Albumin 1.8 L Globulin 4.6 H Albumin/Globulin Ratio 0.4 L 11/12/19 11/12/19 07:53 11:50 WBC RBC Hgb Hct MCV MCH MCHC RDW Std Deviation RDW Coeff of Bret Plt Count MPV Immature Gran % (Auto) Neut % (Auto) Lymph % (Auto) [place] % (Auto) Eos % (Auto) Baso % (Auto) Neut # (Auto) Lymph # (Auto) [place] # (Auto) Eos # (Auto) Baso # (Auto) Immature Gran # (Auto) Anisocytosis Target Cells Sodium Potassium Chloride Carbon Dioxide Anion Gap BUN Creatinine Est Cr Clr Drug Dosing Est GFR ( Amer) Est GFR (Non-Af Amer) BUN/Creatinine Ratio Glucose POC Glucose 130 H Calcium Phosphorus 2.6 Magnesium 1.9 Total Bilirubin AST ALT Alkaline Phosphatase Ammonia Total Protein Albumin Globulin Albumin/Globulin Ratio Microbiology 11/08/19 13:00 Pleural Fluid Gram Stain - Final 11/08/19 13:00 Pleural Fluid Aerobic and Anaerobic Culture - Preliminary Coag negative Staphylococcus Enterococcus avium 11/08/19 12:05 Foot Gram Stain - Final 11/08/19 12:05 Foot Wound Culture - Final Klebsiella pneumoniae 11/08/19 08:09 Blood Aerobic Blood Culture - Preliminary No growth in Aerobic bottle after 48 hours. 11/08/19 08:09 Blood Anaerobic Blood Culture - Preliminary No growth in Anaerobic bottle after 48 hours. 11/08/19 07:10 Blood Aerobic Blood Culture - Preliminary No growth in Aerobic bottle after 48 hours. 11/08/19 07:10 Blood Anaerobic Blood Culture - Preliminary No growth in Anaerobic bottle after 48 hours. 11/08/19 12:05 Nasal MRSA Surveillance Culture - Final No Methicillin Resistant Staph Aureus isolated. ---Surveillance culture only--- 11/08/19 13:05 Peritoneal Fluid Gram Stain - Final 11/08/19 13:05 Peritoneal Fluid Aerobic and Anaerobic Culture - Preliminary No growth to date. Medications Administered Current Inpatient Medications Albuterol (Albut/Ipratrop 3mg/0.5mg Neb 3 Ml Vial) 3 ml NEB QIDR PRN PRN Reason: Shortness Of Breath Or Wheezing Stop: 12/08/19 12:20 Enoxaparin Sodium (Enoxaparin Inj 40 Mg/0.4 Ml Syr) 40 mg SQ QAM [facility] Stop: 12/10/19 10:14 Last Admin: 11/12/19 07:58 Dose: 40 mg Documented by: Furosemide (Furosemide 40 Mg Tab) 40 mg PO BID17 MADELYN Stop: 12/11/19 16:59 Last Admin: 11/12/19 15:53 Dose: 40 mg Documented by: Heparin Sodium (Beef Lung) (Heparin 10 Unit/Ml 5 Ml Flush) 5 ml FLUSH PRN PRN PRN Reason: Flush Stop: 12/08/19 23:57 Ertapenem 1,000 mg/ Sodium (Chloride) 60 mls @ 100 mls/hr IV Q24H MADELYN Stop: 11/17/19 07:59 Last Infusion: 11/12/19 08:57 Dose: Infused Documented by: Lactulose (Lactulose Syrup 30 Gm/45 Ml Udp) 30 gm PO QAM [facility] Stop: 12/13/19 08:59 Nystatin (Nystatin Powder 15gm Btl) 1 appln EXT PRN PRN PRN Reason: Affected Skin Folds Stop: 12/12/19 18:04 Pantoprazole Sodium (Pantoprazole 40 Mg Tab) 40 mg PO QAM [facility] Stop: 12/12/19 08:59 Last Admin: 11/12/19 07:58 Dose: 40 mg Documented by: Potassium Chloride (Potassium Chloride 10 Meq Tabcr) 10 meq PO QAM [facility] Stop: 12/12/19 08:59 Last Admin: 11/12/19 07:57 Dose: 10 meq Documented by: Rifaximin (Rifaximin 550 Mg Tablet) 550 mg NG BID [facility] Stop: 12/08/19 12:20 Last Admin: 11/12/19 20:35 Dose: 550 mg Documented by: Spironolactone (Spiron[facility]actone 25 Mg Tab) [facility] [place] Stop: 12/09/19 08:59 Last Admin: 11/12/19 07:57 Dose: 25 mg Documented by: Valsartan (Valsartan 80 Mg Tab) 80 mg PO QAM MADELYN Stop: 12/12/19 09:59 Last Admin: 11/12/19 11:34 Dose: 80 mg Documented by: PG Care Time/CCT Total # of Minutes Spent Total Time Spent with Patient: Total time spent is greater than 50% in coordination of care (as documented) at patient's floor/unit and/or counseling patient: Coding Level of Care Code 84322 Subseq Hosp Care Lvl 3 Diagnoses Acute respiratory failure J96.00 Hepatic encephalopathy K72.90 Pleural cavity effusion J90 Cirrhosis K74.60 COPD (chronic obstructive pulmonary disease) J44.9 BPH (benign prostatic hyperplasia) N40.0 GERD (gastroesophageal reflux disease) K21.9 Open wound of left foot S91.302D Encounter type: subsequent encounter Ascites R18.8 Pancytopenia D61.818 Neuropathy G62.9 Barretts esophagus K22.70 Hyperlipidemia E78.5 DVT prophylaxis Z29.9 (1) Open wound of left foot Encounter type: subsequent encounter Qualified Code(s): S91.302D - Unspecified open wound, left foot, subsequent encounter
[2019-11-13 06:39] LABS: Hematocrit (blood only) 29.3 % (42-52); Hemoglobin 9.6 g/dL (14.0-18.0); Mean Corpuscular Hgb Conc 32.8 g/dL (32-36); Mean Corpuscular Volume 94.5 fL (80-100); RDW Coefficient of Variation 21.5 % (11.5-14.5); RDW Standard Deviation 72.1 fL (36.4-46.3); White Blood Count 6.43 K/uL (4.8-10.8)
[2019-11-13 06:42] LABS: Mean Platelet Volume 10.4 fL (7.4-10.4); Platelet Count 72 K/uL (130-400)
[2019-11-13 07:16] LABS: Albumin Globulin Ratio 0.3 (0.9-2); Albumin Level 1.6 gm/dl (3.4-5.0); BUN Creatinine Ratio 34.8 (10-20); Bilirubin,Total 1.3 mg/dl (0.2-1); Calcium 7.7 mg/dl (8.5-10.1); Est GFR (African American) 99.3; Est GFR (Non-African American) 85.7; Globulin 4.6 gm/dl (2.5-4.0); Magnesium 1.7 mg/dl (1.8-2.4); Phosphorus 2.7 mg/dl (2.5-4.9); Potassium 4.2 mmol/L (3.5-5.1); Total Protein 6.2 gm/dl (6.4-8.2)
[2019-11-13] MEDS: FUROSEMIDE 40 MG TAB PO SCH ×2 (08:03→17:18)
[2019-11-13] MEDS: ERTAPENEM SODIUM 1,000 MG in SODIUM CHLORIDE 0.9% 50 ML IV SCH (08:03)
[2019-11-13] MEDS: POTASSIUM CHLORIDE 10 MEQ TABCR PO SCH (08:03)
[2019-11-13] MEDS: SPIRONOLACTONE 25 MG TAB PO SCH (08:03)
[2019-11-13] MEDS: PANTOprazole 40 MG TAB PO SCH (08:03)
[2019-11-13] MEDS: NYSTATIN POWDER 15GM BTL EXT PRN (08:03)
[2019-11-13] MEDS: RIFAXIMIN 550 MG TABLET NG SCH ×2 (08:03→21:27)
[2019-11-13] MEDS: VALSARTAN 80 MG TAB PO SCH (08:03)
[2019-11-13] MEDS: ENOXAPARIN INJ 40 MG/0.4 ML SYR SQ SCH (08:03)
[2019-11-13] MEDS: LACTULOSE SYRUP 30 GM/45 ML UDP PO SCH (08:03)
[2019-11-13] MEDS: MAGNESIUM SULFATE / D5W 1 GM/100 ML BAG IV SCH ×2 (10:15→11:47)
--- NOTE | 2019-11-13 19:54 | Hospitalist Progress Note ---
Date of Service November 13, 2019 Assessment & Plan (1) Acute respiratory failure: With acute respiratory failure with hypercarbia, likely due to hypoventilation from elevated ammonia level intubated on admission due to profound lethargy, concerns for inability to protect airway successfully extubated 11/09 breathing well on room air ever since he was extubated CTA chest negative for PE, had pleural effusion, s/p thoracentesis, transudative, growing Enterococcus (2) Hepatic encephalopathy: Reportedly patient's had a significant issue with his liver from about February 2019 where he is been in and out of [facility] and also [facility] Most recently discharged from [facility] after a bout of Klebsiella bacteremia from a left foot infection. Family states he has had a recent paracentesis of 6 L which fluid analyzed without evidence of infection. Subsequently patient was sent from there to [facility] where he decompensated. On presentation his ammonia was 200 and he was found gurgling in his bed at rehab, had an absent gag reflex and no response to pain. He was intubated. treated with Lactulose via OG tube while intubated ammonia 25 today, he is alert and responsive excessive stools, reduce Lactulose, continue Rifaximin diuretics resumed, diuresing well for three days -Continue rifaximin PO -Follows with hepatology at [place] -Is on IV hydrocortisone here for stress dose steroids and it appears he had been on prednisone prior to admission-unclear if this was for respiratory reasons or hepatic reasons -Follow ammonia level daily acute encephalopathy appears to be resolved (3) Pleural cavity effusion: could be extension of his ascites fluid. Transudative but cultures growing coag negative staph, enterococcus will treat with 10 days of antibiotics, repeat thoracentesis Follow with chest x-ray breathing well today (4) Cirrhosis: Alcoholic cirrhosis with history of esophageal varices and portal hypertension -Continue medications as above and follow-up with hepatology Had paracentesis, albumin low continue Lasix and Spironolactone for edema, difficult to remove fluid due to hypoalbuminemia continue Rifaximin plts low, chronic issue (5) COPD (chronic obstructive pulmonary disease): No acute issues -Continue albuterol neb 4 times daily day 4 of Ertapenem, but this is covering Klebsiella foot wound and pleural fluid infection -Restart home inhalers now that he is extubated (6) BPH (benign prostatic hyperplasia): Fully catheter was placed patient typically is on Flomax (7) GERD (gastroesophageal reflux disease): PPI be held and Pepcid to be utilized intravenously (8) Open wound of left foot: Patient is been nursing an open wound in his left foot for some time. He previously has had bones removed according to his family for osteomyelitis secondary to a crush injury that occurred at work. Patient is missing the fourth and fifth toe on the right foot and the fourth toe on the left foot he has a 3 x 5 cm open wound on the dorsum of his left foot that goes down to the fatty tissue. CT scan of the foot suspicious for osteomyelitis of the third proximal phalanx Wound culture growing gram-negative rods -- Klebsiella that is sensitive to Ertapenem -Continue ertapenem, day 6 ortho consulted, no plans for debridement, will follow up with ortho and ID at [place] vascular consult, patient with adequate blood flow to extremities for healing (9) Ascites: As above, status post paracentesis No evidence of SBP continue Lasix and Spironolactone (10) Pancytopenia: Secondary to cirrhosis of liver Follow CBC, Hb and plts low but stable (11) Neuropathy: Severe in bilateral lower extremities -Typically is on gabapentin for this -Restart gabapentin (12) Barretts esophagus: Continue antacid (13) Hyperlipidemia: -Holding home statin for now (14) DVT prophylaxis: SCDs, plts are low FEN: was on tube feeds until extubated, will get swallow evaluation -- easy to chew foods, liquids with straw Disposition- plan for inpatient rehab but he needs 10 days of IV antibiotics and then repeat thoracentesis to evaluate for bacterial infection Admission and Anticipated Discharge Date Admission Date: November 08, 2019 Subjective patient sleeping most of the day oral intake is decent no major issues past 24 hours PT and OT both recommending inpatient rehab once medically stable reviewed labs, WBC normal, Hb stable, plts 70's, BMP stable, bili 1.3, albumin low Review of Systems Review of Systems: All systems reviewed & are unremarkable except as noted in Subjective Constitutional: + fatigue and + weakness; no fever Respiratory: no cough and no dyspnea Cardiovascular: no chest pain and no edema Gastrointestinal: + diarrhea/loose stools; no abdominal pain, no nausea, no vomiting and no constipation Physical Exam Constitutional: well developed, well nourished and + obese; no acute distress Eyes: PERRL, conjunctivae normal, anicteric sclerae ENMT: external ear and nose normal, oropharynx normal Neck: trachea midline, no thyromegaly Respiratory: normal respiratory effort; no respiratory distress, no labored breathing and no cough Auscultation: + diminished lung sounds (bases) Cardiovascular: Rate/Rhythm: regular rate and regular rhythm Heart Sounds: normal S1 and normal S2; no murmur Extremities: normal capillary refill and + edema Gastrointestinal (Abdomen): normal bowel sounds, soft, nontender, no hepatosplenomegaly Musculoskeletal: no cyanosis or clubbing, extremities motor strength 5/5 Skin: + turgor decreased, + rash (venous stasis discoloration of legs) and + wound (left dorsal foot) Neurologic: patellar DTR's 2+ bilat, sensation intact and PERRL, EOMI, accommodation nl, no face palsy, no dysarthria Psychiatric: Orientation: alert and oriented x 3 Lymphatic: no cervical or axillary lymphadenopathy Results & Data Results & Data ([facility]) Vital Signs (Past 12 Hours) Vital Signs Temp Pulse Resp BP Pulse Ox 11/13/19 19:37 36.8 C 58 L 20 99/54 L 97 11/13/19 15:25 36.5 C 56 L 20 103/56 L 97 11/13/19 15:11 58 L 11/13/19 11:30 36.5 C 59 L 20 93/53 L 95 Laboratory Results Laboratory Results - last 24 hr 11/13/19 11/13/19 11/13/19 06:19 06:19 06:19 WBC 6.43 RBC 3.10 L Hgb 9.6 L Hct 29.3 L MCV 94.5 MCH 31.0 MCHC 32.8 RDW Std Deviation 72.1 H RDW Coeff of Bret 21.5 H Plt Count 72 L MPV 10.4 Sodium 139 Potassium 4.2 D Chloride 111 H Carbon Dioxide 22 Anion Gap 6.0 BUN 34 H Creatinine 0.97 Est Cr Clr Drug Dosing 111.0 Est GFR ( Amer) 99.3 Est GFR (Non-Af Amer) 85.7 BUN/Creatinine Ratio 34.8 H Glucose 80 Calcium 7.7 L Phosphorus 2.7 Magnesium 1.7 L Total Bilirubin 1.3 H AST 37 ALT 29 Alkaline Phosphatase 134 H Ammonia 25.0 Total Protein 6.2 L Albumin 1.6 L Globulin 4.6 H Albumin/Globulin Ratio 0.3 L Medications Administered Current Inpatient Medications Albuterol (Albut/Ipratrop 3mg/0.5mg Neb 3 Ml Vial) 3 ml NEB QIDR PRN PRN Reason: Shortness Of Breath Or Wheezing Stop: 12/08/19 12:20 Enoxaparin Sodium (Enoxaparin Inj 40 Mg/0.4 Ml Syr) 40 mg SQ QAM [facility] Stop: 12/10/19 10:14 Last Admin: 11/13/19 08:03 Dose: 40 mg Documented by: Furosemide (Furosemide 40 Mg Tab) 40 mg PO BID17 [facility] Stop: 12/11/19 16:59 Last Admin: 11/13/19 17:18 Dose: 40 mg Documented by: Heparin Sodium (Beef Lung) (Heparin 10 Unit/Ml 5 Ml Flush) 5 ml FLUSH PRN PRN PRN Reason: Flush Stop: 12/08/19 23:57 Ertapenem 1,000 mg/ Sodium (Chloride) 60 mls @ 100 mls/hr IV Q24H [facility] Stop: 11/17/19 07:59 Last Infusion: 11/13/19 08:52 Dose: Infused Documented by: Lactulose (Lactulose Syrup 30 Gm/45 Ml Udp) [facility] Stop: 12/13/19 08:59 Last Admin: 11/13/19 08:03 Dose: 30 gm Documented by: Miconazole Nitrate (Miconazole Nitrate Powder 43 Gm) 1 appln EXT PRN PRN PRN Reason: Affected Skin Folds Stop: 12/13/19 08:26 Nystatin (Nystatin Powder 15gm Btl) 1 appln EXT PRN PRN PRN Reason: Affected Skin Folds Stop: 12/12/19 18:04 Last Admin: 11/13/19 08:03 Dose: 1 appln Documented by: Pantoprazole Sodium (Pantoprazole 40 Mg Tab) [facility] Stop: 12/12/19 08:59 Last Admin: 11/13/19 08:03 Dose: 40 mg Documented by: Potassium Chloride (Potassium Chloride 10 Meq Tabcr) 10 meq [facility] Stop: 12/12/19 08:59 Last Admin: 11/13/19 08:03 Dose: 10 meq Documented by: Rifaximin (Rifaximin 550 Mg Tablet) 550 mg NG BID [facility] Stop: 12/08/19 12:20 Last Admin: 11/13/19 08:03 Dose: 550 mg Documented by: Spironolactone (Spironolactone 25 Mg Tab) 25 mg PO QAM [facility] Stop: 12/09/19 08:59 Last Admin: 11/13/19 08:03 Dose: 25 mg Documented by: Valsartan (Valsartan 80 Mg Tab) 80 mg PO QAM [facility] Stop: 12/12/19 09:59 Last Admin: 11/13/19 08:03 Dose: 80 mg Documented by: PG Care Time/CCT Total # of Minutes Spent Total Time Spent with Patient: Total time spent is greater than 50% in coordination of care (as documented) at patient's floor/unit and/or counseling patient: Coding Level of Care Code 28611 Subseq Hosp Care Lvl 3 Diagnoses Acute respiratory failure J96.00 Hepatic encephalopathy K72.90 Pleural cavity effusion J90 Cirrhosis K74.60 COPD (chronic obstructive pulmonary disease) J44.9 BPH (benign prostatic hyperplasia) N40.0 GERD (gastroesophageal reflux disease) K21.9 Open wound of left foot S91.302D Encounter type: subsequent encounter Ascites R18.8 Pancytopenia D61.818 Neuropathy G62.9 Barretts esophagus K22.70 Hyperlipidemia E78.5 DVT prophylaxis Z29.9 (1) Open wound of left foot Encounter type: subsequent encounter Qualified Code(s): S91.302D - Unspecified open wound, left foot, subsequent encounter
[2019-11-13] MEDS: RIFAXIMIN 550 MG TABLET PO SCH (21:28)
[2019-11-14 06:52] LABS: Albumin Level 1.5 gm/dl (3.4-5.0); Calcium 7.7 mg/dl (8.5-10.1); Creatinine Clr Calc Pharmacy 86.6 ml/min; Est GFR (African American) 71.7; Est GFR (Non-African American) 61.9; Potassium 4.6 mmol/L (3.5-5.1)
[2019-11-14 06:54] LABS: Albumin Globulin Ratio 0.4 (0.9-2); Bilirubin,Total 1.5 mg/dl (0.2-1); Globulin 4.2 gm/dl (2.5-4.0); Total Protein 5.7 gm/dl (6.4-8.2)
[2019-11-14] MEDS: RIFAXIMIN 550 MG TABLET PO SCH ×2 (09:23→20:44)
[2019-11-14] MEDS: SODIUM BICARBONATE 650 MG TAB PO SCH ×2 (09:23→20:44)
[2019-11-14] MEDS: PANTOprazole 40 MG TAB PO SCH (09:23)
[2019-11-14] MEDS: POTASSIUM CHLORIDE 10 MEQ TABCR PO SCH (09:23)
[2019-11-14] MEDS: VALSARTAN 80 MG TAB PO SCH (09:24)
[2019-11-14] MEDS: SPIRONOLACTONE 25 MG TAB PO SCH (09:24)
[2019-11-14] MEDS: ENOXAPARIN INJ 40 MG/0.4 ML SYR SQ SCH (09:24)
[2019-11-14] MEDS: LACTULOSE SYRUP 30 GM/45 ML UDP PO SCH (09:24)
[2019-11-14] MEDS: FUROSEMIDE 40 MG TAB PO SCH ×2 (09:25→16:09)
[2019-11-14] MEDS: ERTAPENEM SODIUM 1,000 MG in SODIUM CHLORIDE 0.9% 50 ML IV SCH (09:26)
[2019-11-14] MEDS: MICONAZOLE NITRATE POWDER 43 GM EXT PRN ×2 (09:29→20:57)
--- NOTE | 2019-11-14 16:06 | Hospitalist Progress Note ---
Date of Service November 14, 2019 Assessment & Plan (1) Acute respiratory failure: With acute respiratory failure with hypercarbia, likely due to hypoventilation from elevated ammonia level intubated on admission due to profound lethargy, concerns for inability to protect airway successfully extubated 11/09 breathing well on room air ever since he was extubated CTA chest negative for PE, had pleural effusion, s/p thoracentesis, transudative, growing Enterococcus plan to reassess pleural effusion after weekend (2) Hepatic encephalopathy: Reportedly patient's had a significant issue with his liver from about February 2019 where he is been in and out of [facility] and also [facility]. Most recently discharged from [facility] after a bout of Klebsiella bacteremia from a left foot infection. Family states he has had a recent paracentesis of 6 L which fluid analyzed without evidence of infection. Subsequently patient was sent from there to [facility] where he decompensated. On presentation his ammonia was 200 and he was found gurgling in his bed at rehab, had an absent gag reflex and no response to pain. He was intubated. treated with Lactulose via OG tube while intubated ammonia 28 today, he is alert and responsive continue Lactulose, continue Rifaximin diuretics resumed, diuresing well for four days -Continue rifaximin PO -Follows with hepatology at [place] -Follow ammonia level daily acute encephalopathy appears to be resolved (3) Pleural cavity effusion: could be extension of his ascites fluid. Transudative but cultures growing coag negative staph, enterococcus will treat with 10 days of antibiotics, repeat thoracentesis Thursday 11/16 Follow with chest x-ray, get one tomorrow breathing well today (4) Cirrhosis: Alcoholic cirrhosis with history of esophageal varices and portal hypertension -Continue medications as above and follow-up with hepatology Had paracentesis, albumin low continue Lasix and Spironolactone for edema, difficult to remove fluid due to hypoalbuminemia continue Rifaximin plts low, chronic issue albumin low at 1.5 (5) COPD (chronic obstructive pulmonary disease): No acute issues -Continue albuterol neb 4 times daily day 8 of Ertapenem, but this is covering Klebsiella foot wound and pleural fluid infection -Restart home inhalers now that he is extubated (6) BPH (benign prostatic hyperplasia): Fully catheter was placed patient typically is on Flomax (7) GERD (gastroesophageal reflux disease): PPI be held and Pepcid to be utilized intravenously (8) Open wound of left foot: Patient is been nursing an open wound in his left foot for some time. He previously has had bones removed according to his family for osteomyelitis secondary to a crush injury that occurred at work. Patient is missing the fourth and fifth toe on the right foot and the fourth toe on the left foot he has a 3 x 5 cm open wound on the dorsum of his left foot that goes down to the fatty tissue. CT scan of the foot suspicious for osteomyelitis of the third proximal phalanx Wound culture growing gram-negative rods -- Klebsiella that is sensitive to Ertapenem -Continue ertapenem, day 8 ortho consulted, no plans for debridement, will follow up with ortho and ID at [place] vascular consult, patient with adequate blood flow to extremities for healing (9) Ascites: As above, status post paracentesis No evidence of SBP continue Lasix and Spironolactone (10) Pancytopenia: Secondary to cirrhosis of liver Follow CBC, Hb and plts low but stable (11) Neuropathy: Severe in bilateral lower extremities -Typically is on gabapentin for this -Restart gabapentin (12) Barretts esophagus: Continue antacid (13) Hyperlipidemia: -Holding home statin for now (14) DVT prophylaxis: SCDs, plts are low FEN: was on tube feeds until extubated, will get swallow evaluation -- easy to chew foods, liquids with straw Disposition- plan for inpatient rehab but he needs 10 days of IV antibiotics and then repeat thoracentesis to evaluate for bacterial infection likely to rehab Sunday/Sunday Admission and Anticipated Discharge Date Admission Date: November 08, 2019 Subjective patient is happy today, he has been OOB in a wheelchair he is participating in therapy, his goal is to get back to rehab, get stronger, get back home he is eating well, he is moving his bowels, has some dyspnea on exertion with therapy no chest pain, no fevers/chills, no diaphoresis reviewed labs, Na 135, Cr 1.27, BUN 38, ammonia 28 Review of Systems Review of Systems: All systems reviewed & are unremarkable except as noted in Subjective Physical Exam Constitutional: well developed, well nourished and + obese; no acute distress Eyes: PERRL, conjunctivae normal, anicteric sclerae ENMT: external ear and nose normal, oropharynx normal Neck: trachea midline, no thyromegaly Respiratory: normal respiratory effort; no respiratory distress, no labored breathing and no cough Auscultation: + diminished lung sounds (bases) Cardiovascular: Rate/Rhythm: regular rate and regular rhythm Heart Sounds: normal S1 and normal S2; no murmur Extremities: normal capillary refill and + edema Gastrointestinal (Abdomen): normal bowel sounds, soft, nontender, no hepatosplenomegaly Musculoskeletal: Head/Neck/Chest: normocephalic, head atraumatic and neck supple Extremities: extremities normal to inspection and + abnormal strength (generalized weakness) Skin: + turgor decreased, + rash (venous stasis discoloration of legs) and + wound (left dorsal foot) Neurologic: patellar DTR's 2+ bilat, sensation intact and PERRL, EOMI, accommodation nl, no face palsy, no dysarthria Psychiatric: Orientation: alert and oriented x 3 Lymphatic: no cervical or axillary lymphadenopathy Results & Data Results & Data ([facility]) Vital Signs (Past 12 Hours) Vital Signs Temp Pulse Resp BP Pulse Ox 11/14/19 15:08 62 11/14/19 14:49 36.3 C L 61 22 115/61 98 11/14/19 11:36 36.4 C L 61 20 120/61 97 11/14/19 08:00 60 11/14/19 07:16 36.8 C 57 L 18 97/55 L 95 Laboratory Results Laboratory Results - last 24 hr 11/14/19 11/14/19 05:56 05:56 Sodium 135 L Potassium 4.6 Chloride 108 H Carbon Dioxide 20 L Anion Gap 7.0 BUN 38 H Creatinine 1.27 D Est Cr Clr Drug Dosing 86.6 Est GFR ( Amer) 71.7 Est GFR (Non-Af Amer) 61.9 BUN/Creatinine Ratio 30.0 H Glucose 75 Calcium 7.7 L Total Bilirubin 1.5 H AST 32 ALT 26 Alkaline Phosphatase 121 H Ammonia 28.0 Total Protein 5.7 L Albumin 1.5 L Globulin 4.2 H Albumin/Globulin Ratio 0.4 L Medications Administered Current Inpatient Medications Albuterol (Albut/Ipratrop 3mg/0.5mg Neb 3 Ml Vial) 3 ml NEB QIDR PRN PRN Reason: Shortness Of Breath Or Wheezing Stop: 12/08/19 12:20 Enoxaparin Sodium (Enoxaparin Inj 40 Mg/0.4 Ml Syr) [facility]: 12/10/19 10:14 Last Admin: 11/14/19 09:24 Dose: 40 mg Documented by: Furosemide (Furosemide 40 Mg Tab) 40 mg PO BID17 [facility] Stop: 12/11/19 16:59 Last Admin: 11/14/19 09:25 Dose: 40 mg Documented by: Heparin Sodium (Beef Lung) (Heparin 10 Unit/Ml 5 Ml Flush) 5 ml FLUSH PRN PRN PRN Reason: Flush Stop: 12/08/19 23:57 Ertapenem 1,000 mg/ Sodium (Chloride) 60 mls @ 100 mls/hr IV Q24H [facility] Stop: 11/17/19 07:59 Last Infusion: 11/14/19 10:33 Dose: Infused Documented by: Lactulose (Lactulose Syrup 30 Gm/45 Ml Udp) 30 gm PO [facility] Stop: 12/13/19 08:59 Last Admin: 11/14/19 09:24 Dose: 30 gm Documented by: Miconazole Nitrate (Miconazole Nitrate Powder 43 Gm) 1 appln EXT PRN PRN PRN Reason: Affected Skin Folds Stop: 12/13/19 08:26 Last Admin: 11/14/19 09:29 Dose: 1 appln Documented by: Nystatin (Nystatin Powder 15gm Btl) 1 appln EXT PRN PRN PRN Reason: Affected Skin Folds Stop: 12/12/19 18:04 Last Admin: 11/13/19 08:03 Dose: 1 appln Documented by: Pantoprazole Sodium (Pantoprazole 40 Mg Tab) 40 mg PO [facility] Stop: 12/12/19 08:59 Last Admin: 11/14/19 09:23 Dose: 40 mg Documented by: Potassium Chloride (Potassium Chloride 10 Meq Tabcr) 10 meq PO [facility] Stop: 12/12/19 08:59 Last Admin: 11/14/19 09:23 Dose: 10 meq Documented by: Rifaximin (Rifaximin 550 Mg Tablet) 550 mg PO BID [facility] Stop: 12/13/19 20:59 Last Admin: 11/14/19 09:23 Dose: 550 mg Documented by: Sodium Bicarbonate (Sodium Bicarbonate 650 Mg Tab) 650 mg PO BID [facility] Stop: 12/14/19 08:59 Last Admin: 11/14/19 09:23 Dose: 650 mg Documented by: Spironolactone (Spironolactone 25 Mg Tab) 25 mg PO QAM [facility] Stop: 12/09/19 08:59 Last Admin: 11/14/19 09:24 Dose: 25 mg Documented by: Valsartan (Valsartan 80 Mg Tab) 80 mg PO QAM [facility] Stop: 12/12/19 09:59 Last Admin: 11/14/19 09:24 Dose: Not Given Documented by: PG Care Time/CCT Total # of Minutes Spent Total Time Spent with Patient: Total time spent is greater than 50% in coordination of care (as documented) at patient's floor/unit and/or counseling patient: Coding Level of Care Code 73443 Subseq Hosp Care Lvl 3 Diagnoses Acute respiratory failure J96.00 Hepatic encephalopathy K72.90 Pleural cavity effusion J90 Cirrhosis K74.60 COPD (chronic obstructive pulmonary disease) J44.9 BPH (benign prostatic hyperplasia) N40.0 GERD (gastroesophageal reflux disease) K21.9 Open wound of left foot S91.302D Encounter type: subsequent encounter Ascites R18.8 Pancytopenia D61.818 Neuropathy G62.9 Barretts esophagus K22.70 Hyperlipidemia E78.5 DVT prophylaxis Z29.9 (1) Open wound of left foot Encounter type: subsequent encounter Qualified Code(s): S91.302D - Unspecified open wound, left foot, subsequent encounter
[2019-11-14] MEDS: ALBUMIN 25% 50 ML IV SCH ×2 (22:31→23:30)
[2019-11-15] MEDS ORDERED: SODIUM CHLORIDE 0.9% 1000ML 250 ML IV ONE (04:28)
[2019-11-15] MEDS: LACTULOSE SYRUP 30 GM/45 ML UDP PO SCH (09:12)
[2019-11-15] MEDS: RIFAXIMIN 550 MG TABLET PO SCH ×2 (09:18→20:24)
[2019-11-15] MEDS: POTASSIUM CHLORIDE 10 MEQ TABCR PO SCH (09:18)
[2019-11-15] MEDS: SPIRONOLACTONE 25 MG TAB PO SCH (09:18)
[2019-11-15] MEDS: ERTAPENEM SODIUM 1,000 MG in SODIUM CHLORIDE 0.9% 50 ML IV SCH (09:19)
[2019-11-15] MEDS: PANTOprazole 40 MG TAB PO SCH (09:19)
[2019-11-15] MEDS: FUROSEMIDE 40 MG TAB PO SCH (09:20)
[2019-11-15] MEDS: ENOXAPARIN INJ 40 MG/0.4 ML SYR SQ SCH (09:20)
[2019-11-15] MEDS: SODIUM BICARBONATE 650 MG TAB PO SCH ×2 (09:20→20:24)
[2019-11-15] MEDS: VALSARTAN 80 MG TAB PO SCH (09:21)
[2019-11-15] MEDS: NYSTATIN POWDER 15GM BTL EXT PRN (09:26)
[2019-11-15] MEDS: MICONAZOLE NITRATE POWDER 43 GM EXT PRN (09:26)
[2019-11-15 09:39] LABS: Albumin Level 1.9 gm/dl (3.4-5.0); BUN Creatinine Ratio 27.6 (10-20); Calcium 8.1 mg/dl (8.5-10.1); Est GFR (African American) 51.1; Est GFR (Non-African American) 44.1; Potassium 5.1 mmol/L (3.5-5.1)
[2019-11-15 09:41] LABS: Albumin Globulin Ratio 0.4 (0.9-2); Bilirubin,Total 1.6 mg/dl (0.2-1); Globulin 4.4 gm/dl (2.5-4.0); Total Protein 6.3 gm/dl (6.4-8.2)
--- NOTE | 2019-11-15 13:43 | Hospitalist Progress Note ---
Date of Service November 15, 2019 Assessment & Plan (1) Acute respiratory failure: With acute respiratory failure with hypercarbia, likely due to hypoventilation from elevated ammonia level intubated on admission due to profound lethargy, concerns for inability to protect airway successfully extubated 11/09 breathing well on room air ever since he was extubated CTA chest negative for PE, had pleural effusion, s/p thoracentesis, transudative, growing Enterococcus plan to reassess pleural effusion after weekend (2) Hepatic encephalopathy: Reportedly patient's had a significant issue with his liver from about February 2019 where he is been in and out of [facility] and also [facility]. Most recently discharged from [facility] after a bout of Klebsiella bacteremia from a left foot infection. Family states he has had a recent paracentesis of 6 L which fluid analyzed without evidence of infection. Subsequently patient was sent from there to [facility] where he decompensated. On presentation his ammonia was 200 and he was found gurgling in his bed at rehab, had an absent gag reflex and no response to pain. He was intubated. treated with Lactulose via OG tube while intubated ammonia 24 today, he is alert and responsive continue Lactulose 30gm daily, continue Rifaximin moving his bowels a few times a day diuretics resumed, diuresing well for five days, actually hold Lasix and Aldactone now with Cr of 1.68 -Continue rifaximin PO -Follows with hepatology at [facility] -Follow ammonia level daily acute encephalopathy appears to be resolved (3) Acute kidney injury: Cr up to 1.68, suspect it is due to Lasix and Aldactone, also on Valsartan K is high normal at 5.1 stop Lasix, Aldactone, Valsartan, Potassium 10mEq daily patient is drinking well will repeat BMP in the morning, suspect he has over-diuresed difficult to assess with his ascites, but likely intravascularly depleted, BUN up to 46 (4) Pleural cavity effusion: could be extension of his ascites fluid. Transudative but cultures growing coag negative staph, enterococcus will treat with 10 days of antibiotics, repeat thoracentesis Thursday 11/16 Follow with chest x-ray, get one 11/15 breathing well today (5) Cirrhosis: Alcoholic cirrhosis with history of esophageal varices and portal hypertension -Continue medications as above and follow-up with hepatology Had paracentesis, albumin low hold Lasix and Spironolactone due to rise in Cr continue Rifaximin plts low, chronic issue albumin low at 1.5 (6) COPD (chronic obstructive pulmonary disease): No acute issues -Continue albuterol neb 4 times daily day 9 of Ertapenem, but this is covering Klebsiella foot wound and pleural fluid infection -Restart home inhalers now that he is extubated (7) BPH (benign prostatic hyperplasia): Fully catheter was placed patient typically is on Flomax (8) GERD (gastroesophageal reflux disease): PPI be held and Pepcid to be utilized intravenously (9) Open wound of left foot: Patient is been nursing an open wound in his left foot for some time. He previously has had bones removed according to his family for osteomyelitis neil de la paz to a crush injury that occurred at work. Patient is missing the fourth and fifth toe on the right foot and the fourth toe on the left foot he has a 3 x 5 cm open wound on the dorsum of his left foot that goes down to the fatty tissue. CT scan of the foot suspicious for osteomyelitis of the third proximal phalanx Wound culture growing gram-negative rods -- Klebsiella that is sensitive to Er tapenem -Continue ertapenem, day 9 ortho consulted, no plans for debridement, will follow up with ortho and ID at [facility] vascular consult, patient with adequate blood flow to extremities for healing (10) Ascites: As above, status post paracentesis No evidence of SBP continue Lasix and Spironolactone (11) Pancytopenia: Secondary to cirrhosis of liver Follow CBC, Hb and plts low but stable (12) Neuropathy: Severe in bilateral lower extremities -Typically is on gabapentin for this -Restart gabapentin (13) Barretts esophagus: Continue antacid (14) Hyperlipidemia: -Holding home statin for now (15) DVT prophylaxis: SCDs, plts are low FEN: was on tube feeds until extubated, will get swallow evaluation -- easy to chew foods, liquids with straw Disposition- plan for inpatient rehab but he needs 10 days of IV antibiotics and then repeat thoracentesis to evaluate for bacterial infection likely to rehab Sunday/Sunday Admission and Anticipated Discharge Date Admission Date: November 08, 2019 Subjective patient is alert and oriented today his sister at the bedside, she said he was a little disoriented when she first got her, he was thinking it was Sunday told her that can happen when you are in the hospital for days at a time reviewed labs, Cr is trending up to 1.68, discussed with patient that we will hold Lasix and Aldactone he is eating really well, drinking well he is moving bowels a few times a day, loose, his ammonia is stable at 24 so no need to change dosing explained that he will be here the weekend, likely to rehab mid week Review of Systems Review of Systems: All systems reviewed & are unremarkable except as noted in Subjective Constitutional: + fatigue and + weakness; no fever Respiratory: no cough and no dyspnea Cardiovascular: + edema; no chest pain Gastrointestinal: + diarrhea/loose stools; no abdominal pain, no nausea, no vomiting and no constipation Physical Exam Constitutional: well developed, well nourished and + obese; no acute distress Eyes: PERRL, conjunctivae normal, anicteric sclerae ENMT: external ear and nose normal, oropharynx normal Neck: trachea midline, no thyromegaly Respiratory: normal respiratory effort; no respiratory distress, no labored breathing and no cough Auscultation: + diminished lung sounds (bases) Cardiovascular: Rate/Rhythm: regular rate and regular rhythm Heart Sounds: normal S1 and normal S2; no murmur Extremities: normal capillary refill and + edema Gastrointestinal (Abdomen): normal bowel sounds, soft, nontender, no hepatosplenomegaly Musculoskeletal: no cyanosis or clubbing, extremities motor strength 5/5 Head/Neck/Chest: normocephalic, head atraumatic and neck supple Extremities: extremities normal to inspection and + abnormal strength (generalized weakness) Skin: + turgor decreased, + rash (venous stasis discoloration of legs) and + wound (left dorsal foot) Neurologic: patellar DTR's 2+ bilat, sensation intact and PERRL, EOMI, accommodation nl, no face palsy, no dysarthria Psychiatric: Orientation: alert and oriented x 3 Lymphatic: no cervical or axillary lymphadenopathy Results & Data Results & Data ([facility]) Vital Signs (Past 12 Hours) Vital Signs Temp Pulse Pulse Resp BP Pulse Ox 11/15/19 11:16 36.8 C 72 17 127/68 97 11/15/19 08:00 50 L 11/15/19 06:58 36.5 C 55 L 22 114/65 95 11/15/19 04:14 36.7 C 57 L 20 111/62 96 Laboratory Results Laboratory Results - last 24 hr 11/15/19 11/15/19 08:57 08:57 Sodium 135 L Potassium 5.1 Chloride 107 Carbon Dioxide 22 Anion Gap 6.0 BUN 46 H Creatinine 1.68 H D Est Cr Clr Drug Dosing 65.0 Est GFR ( Amer) 51.1 Est GFR (Non-Af Amer) 44.1 BUN/Creatinine Ratio 27.6 H Glucose 142 H Calcium 8.1 L Total Bilirubin 1.6 H AST 33 ALT 27 Alkaline Phosphatase 137 H Ammonia 24.3 Total Protein 6.3 L Albumin 1.9 L Globulin 4.4 H Albumin/Globulin Ratio 0.4 L Microbiology 11/08/19 13:05 Peritoneal Fluid Gram Stain - Final 11/08/19 13:05 Peritoneal Fluid Aerobic and Anaerobic Culture - Final No growth 11/08/19 13:00 Pleural Fluid Gram Stain - Final 11/08/19 13:00 Pleural Fluid Aerobic and Anaerobic Culture - Final Coag negative Staphylococcus Enterococcus avium 11/08/19 08:09 Blood Aerobic Blood Culture - Final No growth in Aerobic bottle after 5 days. 11/08/19 08:09 Blood Anaerobic Blood Culture - Final No growth in Anaerobic bottle after 5 days. 11/08/19 07:10 Blood Aerobic Blood Culture - Final No growth in Aerobic bottle after 5 days. 11/08/19 07:10 Blood Anaerobic Blood Culture - Final No growth in Anaerobic bottle after 5 days. 11/08/19 12:05 Foot Gram Stain - Final 11/08/19 12:05 Foot Wound Culture - Final Klebsiella pneumoniae 11/08/19 12:05 Nasal MRSA Surveillance Culture - Final No Methicillin Resistant Staph Aureus isolated. ---Surveillance culture only--- Medications Administered Current Inpatient Medications Albuterol (Albut/Ipratrop 3mg/0.5mg Neb 3 Ml Vial) 3 ml NEB QIDR PRN PRN Reason: Shortness Of Breath Or Wheezing Stop: 12/08/19 12:20 Enoxaparin Sodium (Enoxaparin Inj 40 Mg/0.4 Ml Syr) 40 mg SQ QAM MADELYN Stop: 12/10/19 10:14 Last Admin: 11/15/19 09:20 Dose: 40 mg Documented by: Furosemide (Furosemide 40 Mg Tab) 40 mg PO BID17 MADELYN Stop: 12/11/19 16:59 Last Admin: 11/15/19 09:20 Dose: 40 mg Documented by: Heparin Sodium (Beef Lung) (Heparin 10 Unit/Ml 5 Ml Flush) 5 ml FLUSH PRN PRN PRN Reason: Flush Stop: 12/08/19 23:57 Ertapenem 1,000 mg/ Sodium (Chloride) 60 mls @ 100 mls/hr IV Q24H [facility] Stop: 11/17/19 07:59 Last Infusion: 11/15/19 10:16 Dose: Infused Documented by: Lactulose (Lactulose Syrup 30 Gm/45 Ml Udp) [facility] Stop: 12/13/19 08:59 Last Admin: 11/15/19 09:12 Dose: 30 gm Documented by: Miconazole Nitrate (Miconazole Nitrate Powder 43 Gm) 1 appln EXT PRN PRN PRN Reason: Affected Skin Folds Stop: 12/13/19 08:26 Last Admin: 11/15/19 09:26 Dose: 1 appln Documented by: Nystatin (Nystatin Powder 15gm Btl) 1 appln EXT PRN PRN PRN Reason: Affected Skin Folds Stop: 12/12/19 18:04 Last Admin: 11/15/19 09:26 Dose: 1 appln Documented by: Pantoprazole Sodium (Pantoprazole 40 Mg Tab) 40 mg PO [facility] Stop: 12/12/19 08:59 Last Admin: 11/15/19 09:19 Dose: 40 mg Documented by: Potassium Chloride (Potassium Chloride 10 Meq Tabcr) 10 meq [facility] Stop: 12/12/19 08:59 Last Admin: 11/15/19 09:18 Dose: 10 meq Documented by: Rifaximin (Rifaximin 550 Mg Tablet) 550 mg PO BID [facility] Stop: 12/13/19 20:59 Last Admin: 11/15/19 09:18 Dose: 550 mg Documented by: Sodium Bicarbonate (Sodium Bicarbonate 650 Mg Tab) 650 mg PO BID [facility] Stop: 12/14/19 08:59 Last Admin: 11/15/19 09:20 Dose: 650 mg Documented by: Spironolactone (Spironolactone 25 Mg Tab) [facility] Stop: 12/09/19 08:59 Last Admin: 11/15/19 09:18 Dose: 25 mg Documented by: PG Care Time/CCT Total # of Minutes Spent Total Time Spent with Patient: Total time spent is greater than 50% in coordination of care (as documented) at patient's floor/unit and/or counseling patient: Coding Level of Care Code 65607 Subseq Hosp Care Lvl 3 Diagnoses Acute respiratory failure J96.00 Hepatic encephalopathy K72.90 Acute kidney injury N17.9 Pleural cavity effusion J90 Cirrhosis K74.60 COPD (chronic obstructive pulmonary disease) J44.9 BPH (benign prostatic hyperplasia) N40.0 GERD (gastroesophageal reflux disease) K21.9 Open wound of left foot S91.302D Encounter type: subsequent encounter Ascites R18.8 Pancytopenia D61.818 Neuropathy G62.9 Barretts esophagus K22.70 Hyperlipidemia E78.5 DVT prophylaxis Z29.9 (1) Open wound of left foot Encounter type: subsequent encounter Qualified Code(s): S91.302D - Unspecified open wound, left foot, subsequent encounter
[2019-11-16] MEDS: MICONAZOLE NITRATE POWDER 43 GM EXT PRN (05:58)
[2019-11-16 06:20] LABS: Hematocrit (blood only) 30.7 % (42-52); Hemoglobin 9.8 g/dL (14.0-18.0); Mean Corpuscular Hemoglobin 30.6 pg (25-34); Mean Corpuscular Hgb Conc 31.9 g/dL (32-36); Mean Corpuscular Volume 95.9 fL (80-100); RDW Coefficient of Variation 21.2 % (11.5-14.5); RDW Standard Deviation 73.6 fL (36.4-46.3); White Blood Count 7.71 K/uL (4.8-10.8)
[2019-11-16 06:33] LABS: Mean Platelet Volume 11.2 fL (7.4-10.4); Platelet Count 78 K/uL (130-400)
[2019-11-16 06:45] LABS: Albumin Level 1.6 gm/dl (3.4-5.0); BUN Creatinine Ratio 25.1 (10-20); Est GFR (Non-African American) 34.5; Potassium 5.1 mmol/L (3.5-5.1)
[2019-11-16 06:48] LABS: Albumin Globulin Ratio 0.4 (0.9-2); Bilirubin,Total 1.3 mg/dl (0.2-1); Globulin 4.4 gm/dl (2.5-4.0)
[2019-11-16] MEDS: ERTAPENEM SODIUM 1,000 MG in SODIUM CHLORIDE 0.9% 50 ML IV SCH (07:48)
[2019-11-16] MEDS: SODIUM BICARBONATE 650 MG TAB PO SCH ×3 (08:03→20:23)
[2019-11-16] MEDS: ENOXAPARIN INJ 40 MG/0.4 ML SYR SQ SCH (08:03)
[2019-11-16] MEDS: PANTOprazole 40 MG TAB PO SCH (08:03)
[2019-11-16] MEDS: LACTULOSE SYRUP 30 GM/45 ML UDP PO SCH ×3 (08:03→20:26)
[2019-11-16] MEDS: RIFAXIMIN 550 MG TABLET PO SCH ×2 (08:04→20:23)
[2019-11-16 10:35] LABS: Appearance Urine Clear (Clear); Bilirubin Urine Negative (Negative); Blood Urine 2+ (Negative); Color Urine Dark Yellow; Epithelial Cell Urine Auto 20-30 /lpf (0-5); Glucose Urine UA Negative (Negative); Ketones Urine Trace (Negative); Leukocyte Esterase Urine 1+ (Negative); Nitrite Urine Negative (Negative); Protein Urine Trace (Negative); Specific Gravity Urine 1.018 (1.000-1.030); Urobilinogen Urine Negative (Negative)
[2019-11-16 11:01] LABS: Bacteria Urine Automated 1+ (Negative); Mucus Urine Present (None Prsent)
[2019-11-16] MEDS ORDERED: STAT IV STA (11:54)
--- NOTE | 2019-11-16 12:05 | Nephrology Consultation ---
Date of Consultation November 16, 2019 Assessment & Plan (1) Acute kidney injury: Baseline creatinine <1 mg/dL. Electrolytes acceptable. Hypervolemic with persistently positive fluid balance. UOP reduced at 400 ml/d. UA trace protein; microscopy: 10-30 WBC, 10-30 RBC, 10-30 hyaline casts. Urine sodium 10. Clinical presentation concerning for worsening portal hypertension and HRS 1. BP has been chronically low. I have ordered supportive care with octreotide 100 Q 8 hrs, midodrine starting at 5 mg TID, and albumin starting at 50 g q 8 hrs. I cannot exclude ATN or other intrinsic renal pathology. However, these would be considered less likely. Obstruction would be unlikely but imaging has not been updated. Sorin has been maintained on oral NaHCO3 for metabolic acidosis. Current dosing is acceptable. Reasonable to allow some permissive acidosis in setting of CLD and recurrent HE. Medications appropriately dosed for kidney function. Dose reduction of Lovenox to 30 mg QD may be considered and ertapenem to 500 mg daily. There is no emergent indication for dialysis. Benefits of [employer] may be considered as a potential bridge to liver transplant but otherwise I would suggest palliative care conversation for goals of care as unlikely to provide significant therapeutic benefit. (2) Cirrhosis: MELD-Na >20. Child-Jerez C. Worsening portal hypertension with ascites and HE. Prognosis is unfortunately poor. Unclear if Sorin would be a transplant candidate. Recent inpatient hepatology evaluation at [facility] reviewed today. Notes suggest that Sorin refused transplant evaluation. (3) COPD (chronic obstructive pulmonary disease): (4) Ascites: Diagnostic paracentesis, 11/07, negative for SBP. Remains on ertapenem. History of Present Illness Reason for Consultation: MICHAEL Requesting Physician: Tee Lara DO Attending Physician: Tee Lara DO History of Present Illness Mr. Sorin Azul is a 58-year-old male with alcoholic cirrhosis, morbid obesity, and COPD who presented from rehab to [facility] on November 07 for evaluation of profound mental status changes requiring intubation. The patient had recently been admitted to [facility] from 10/19-10/31/19 with encephalopathy in the setting of sepsis due to Klebsiella bacteremia and wound infections. He was discharged on Ertapenem. While at rehab, he had become acute altered and was sent to the ER at [facility] via EMS for evaluation. Hepatology consultation obtained during the admission at [facility] and palliative care consultation suggest that Sorin refused evaluation for liver transplant at that time. EGD and screening for HCC have not been updated. Cirrhosis was diagnosed initially in February 2019. He has followed with GI in [place] as well as been evaluated by the [facility] group in [place] in the past. Sorin has not consumed alcohol since his initially diagnosis >1 year ago. Complications of ESLD include recurrent ascites and hepatic encephalopathy. MELDNa has been > 20. He has required multiple large volume paracentesis. He was mildly hypercapnic on presentation to [facility] with notable recurrent acute on chronic hepatic encephalopathy. Sorin was extubated on 11/11/19. Mental status improved with treatment for HE. Thoracentesis for 1.6 L and diagnostic paracentesis performed on 11/08/19. He has been maintained in a positive fluid balance. Serum creatinine was 0.9 mg/dL on November 12. It was 1.27 mg/dL on November 13, 1.67 mg/dL on November 14, and 2.0 mg/dL today. Nephrology consultation was obtained at [facility] for MICHAEL during his recent admission for suspected HRS type 1. Kidney function improved with supportive care at that time. Urine output has been approximately 400 ml daily for the past 2 days. 1 L of NSS was provided IV on 11/15/19. Valsartan and spironolactone have been held. Sorin is off diuretics. Overall, Sorin felt well this morning. He reports severe weakness and notes that he is unable to walk. He has not seen the gains at rehab that he had hoped. He also notes that abdominal fluid collection is increasing. He denies pain or significant discomfort but feels he will benefit from paracentesis soon. He was ambivalent about transplant and did not seem overall concerned about his current health condition when I spoke to him. I discussed the patient's medical history and current plan of care with Dr. Lara. Allergies Allergy/AdvReac Type Severity Reaction Status Date / Time vancomycin Allergy Intermediate Hives Verified 11/15/19 11:33 adhesive tape Allergy Unknown Unknown Unverified 11/09/19 17:17 Cephalosporins Allergy Unknown Unknown Unverified 11/08/19 08:48 ciprofloxacin Allergy Unknown Unknown Unverified 11/08/19 08:48 linezolid Allergy Unknown Unknown Unverified 11/08/19 08:48 Home Medications Home Medications Medication Instructions Recorded Confirmed Type acetaminophen [Tylenol] 650 mg PO QID PRN 11/08/19 11/08/19 History albuterol sulfate 2 puff INHALATION Q6 PRN 11/08/19 11/08/19 History atorvastatin 20 mg PO HS 11/08/19 11/08/19 History bisacodyl 10 mg NC DAILY PRN 11/08/19 11/08/19 History collagenase clostridium histo. 1 applic TOPICAL DAILY 11/08/19 11/08/19 History [Santyl] cyanocobalamin (vitamin B-12) 500 mcg PO QAM 11/08/19 11/08/19 History dextromethorphan-guaifenesin 10 ml PO Q6H PRN 11/08/19 11/08/19 History docusate sodium 100 mg PO BID 11/08/19 11/08/19 History fluticasone furoate-vilanterol 1 inh INHALATION QAM 11/08/19 11/08/19 History furosemide 40 mg PO BID 11/08/19 11/08/19 History gabapentin 100 mg PO TID 11/08/19 11/08/19 History lactulose 15 ml PO QID 11/08/19 11/08/19 History lidocaine [Lidoderm] 2 patch TOPICAL QAM 11/08/19 11/08/19 History magnesium hydroxide [Milk of 30 ml PO DAILY PRN 11/08/19 11/08/19 History Magnesia] nystatin 1 applic TOPICAL QID 11/08/19 11/08/19 History pantoprazole 40 mg PO QAM 11/08/19 11/08/19 History polyethylene glycol 3350 [Miralax] 17 g PO QDL PRN 11/08/19 11/08/19 History prednisone 30 mg PO QAM 11/08/19 11/08/19 History rifaximin [Xifaxan] 550 mg PO BID 11/08/19 11/08/19 History sennosides-docusate sodium 1 tab-cap PO QDL PRN 11/08/19 11/08/19 History [Senokot-S] sodium phosphates [Fleet Enema] 133 ml NC DAILY PRN 11/08/19 11/08/19 History spironolactone 100 mg PO BID 11/08/19 11/08/19 History sucralfate 1 g PO QAM 11/08/19 11/08/19 History tamsulosin 0.4 mg PO QAM 11/08/19 11/08/19 History thiamine HCl (vitamin B1) 100 mg PO QAM 11/08/19 11/08/19 History umeclidinium [Incruse Ellipta] 1 inh INHALATION QAM 11/08/19 11/08/19 History zinc sulfate 220 mg PO QAM 11/08/19 11/08/19 History Patient History Medical History Ascites Barretts esophagus BPH (benign prostatic hyperplasia) Cirrhosis COPD (chronic obstructive pulmonary disease) GERD (gastroesophageal reflux disease) Hyperlipidemia Neuropathy Pancytopenia Peripheral arterial disease Social History Smoking Status: Unknown if ever smoked Preferred Language: Marshallese Communication Ability: Unable Communication Ability Comment: sedated, intubated [employer] Required: No Beliefs That Will Affect Care: None Current Living Situation: Spouse Current Living Situation Comment: currently at [facility] rehab Other Information That Helps Us Care for You: No Feels Safe at Home: Declines to Answer Review of Systems Review of Systems: All systems reviewed & are unremarkable except as noted in HPI & below Physical Exam Constitutional: + morbidly obese; no acute distress chronically ill appearing Eyes: no scleral abnormality and no corneal abnormality ENMT: Mouth: + dry oral mucous membranes; no oral mucosal abnormality Neck: normal visual inspection and trachea midline Respiratory: normal respiratory effort Auscultation: lungs clear to auscultation bilaterally and + diminished lung sounds Cardiovascular: Rate/Rhythm: regular rate Heart Sounds: normal S1 and normal S2; no murmur Vessels: no JVD Extremities: + edema Gastrointestinal (Abdomen): Inspection/Auscultation: + abdomen distended Percussion/Palpation: abdomen soft; abdomen nontender umbilical hernia non- tender and reducible Musculoskeletal: Extremities: + petechiae; no cyanosis and no clubbing Skin: + turgor decreased and + ecchymosis Neurologic: Motor/Sensory: no tremor and no asterixis Psychiatric: Orientation: alert and oriented x 3 Results & Data ([facility]) Vital Signs (Past 12 Hours) Vital Signs Temp Pulse Pulse Resp BP Pulse Ox 11/16/19 11:04 36.9 C 60 17 104/56 L 98 11/16/19 08:00 70 11/16/19 04:42 37.2 C 62 20 103/42 L 94 11/16/19 00:00 62 Laboratory Results Laboratory Results - last 24 hr 11/16/19 11/16/19 11/16/19 06:05 06:05 06:10 WBC 7.71 RBC 3.20 L Hgb 9.8 L Hct 30.7 L MCV 95.9 MCH 30.6 MCHC 31.9 L RDW Std Deviation 73.6 H RDW Coeff of Bret 21.2 H Plt Count 78 L MPV 11.2 H Sodium 135 L Potassium 5.1 Chloride 109 H Carbon Dioxide 19 L Anion Gap 8.0 BUN 52 H Creatinine 2.06 H D Est Cr Clr Drug Dosing 53.0 Est GFR ( Amer) 40.0 Est GFR (Non-Af Amer) 34.5 BUN/Creatinine Ratio 25.1 H Glucose 84 Calcium 8.0 L Total Bilirubin 1.3 H AST 33 ALT 26 Alkaline Phosphatase 136 H Ammonia 37.0 H Total Protein 6.0 L Albumin 1.6 L Globulin 4.4 H Albumin/Globulin Ratio 0.4 L Urine Color Urine Appearance Urine pH Ur Specific [place] Urine Protein Urine Glucose (UA) Urine Ketones Urine Blood Urine Nitrite Urine Bilirubin Urine Urobilinogen Ur Leukocyte Esterase Urine WBC (Auto) Urine RBC (Auto) U Hyaline Cast (Auto) U Epithel Cells (Auto) Urine Bacteria (Auto) Urine Mucus Ur Random Creatinine Ur Random Sodium 11/16/19 11/16/19 10:25 10:25 WBC RBC Hgb Hct MCV MCH MCHC RDW Std Deviation RDW Coeff of Bret Plt Count MPV Sodium Potassium Chloride Carbon Dioxide Anion Gap BUN Creatinine Est Cr Clr Drug Dosing Est GFR ( Amer) Est GFR (Non-Af Amer) BUN/Creatinine Ratio Glucose Calcium Total Bilirubin AST ALT Alkaline Phosphatase Ammonia Total Protein Albumin Globulin Albumin/Globulin Ratio Urine Color Dark Yellow Urine Appearance Clear Urine pH 5.0 Ur Specific [place] 1.018 Urine Protein Trace H Urine Glucose (UA) Negative Urine Ketones Trace H Urine Blood 2+ H Urine Nitrite Negative Urine Bilirubin Negative Urine Urobilinogen Negative Ur Leukocyte Esterase 1+ H Urine WBC (Auto) 10-30 H Urine RBC (Auto) 10-30 H U Hyaline Cast (Auto) 10-30 H U Epithel Cells (Auto) 20-30 H Urine Bacteria (Auto) 1+ H Urine Mucus Present A Ur Random Creatinine 148.0 Ur Random Sodium 10 PG Care Time/CCT Total # of Minutes Spent Total Time Spent with Patient: Total time spent is greater than 50% in coordination of care (as documented) at patient's floor/unit and/or counseling patient: 65 minutes Coding Level of Care Code 78791 Inpt Consult Level 5 Diagnoses Acute kidney injury N17.9 Cirrhosis K74.60 COPD (chronic obstructive pulmonary disease) J44.9 Ascites R18.8
[2019-11-16] MEDS ORDERED: SODIUM BICARBONATE 8.4% 75 MEQ in SODIUM CHLORIDE 0.45 % 1,000 ML IV SCH (12:30)
[2019-11-16] MEDS: OCTREOTIDE ACETATE 100 MCG/ML VIAL SQ SCH ×2 (13:58→20:35)
[2019-11-16] MEDS: ALBUMIN 25% 100 ML IV SCH ×2 (14:03→22:30)
[2019-11-16] MEDS: MIDODRINE HCL 2.5 MG TAB PO SCH ×2 (14:58→22:21)
--- NOTE | 2019-11-16 15:56 | Hospitalist Progress Note ---
Date of Service November 16, 2019 Assessment & Plan (1) Acute kidney injury: Cr up to 2.0, only 400mL of UO in past 24 hours he is obviously volume overloaded with ascites, edema K is normal, worsening acidosis stopped Lasix, Aldactone, Valsartan, Potassium 10mEq daily urine Cr is low at 10, have concerns that this represents hepatorenal syndrome appreciate consult from Dr. Rizvi, spoke with him at length about this patient will try Midodrine, Albumin and Octreotide to look for improvement in UO and Cr patient is NOT a candidate for HE[facility] since he is not a liver transplant candidate, confirms that [place] said he was not a candidate check labs in the morning, follow UO via de leon will consult palliative care to help discuss goals of care, code status personally talked with his , she would say DNR but the patient still wants full code (2) Acute respiratory failure: With acute respiratory failure with hypercarbia on admission 7 days ago, likely due to hypoventilation from elevated ammonia level intubated on admission due to profound lethargy, concerns for inability to protect airway successfully extubated 11/09 breathing well on room air ever since he was extubated CTA chest negative for PE, had pleural effusion, s/p thoracentesis, transudative, growing Enterococcus plan to reassess pleural effusion after weekend however, this can likely be put on hold since his worsening renal function will determine his prognosis (3) Hepatic encephalopathy: On presentation his ammonia was 200 and he was found gurgling in his bed at rehab, had an absent gag reflex and no response to pain. He was intubated. treated with Lactulose via OG tube while intubated ammonia responded well it is 37 today continue Lactulose 30gm TID, continue Rifaximin moving his bowels a few times a day diuretics resumed, diuresing well for five days, now hold Lasix and Aldactone due to decreased UO and rise in Cr to 2.0 -Continue rifaximin PO -Follows with hepatology at [place] was just seen in October, he is NOT a candidate for transplant -Follow ammonia level daily acute encephalopathy appears to be resolved (4) Cirrhosis: diagnosed 5 years ago, did not stop drinking until almost 2 years ago Alcoholic cirrhosis with history of esophageal varices and portal hypertension causing ascites hold Lasix and Spironolactone due to rise in Cr continue Rifaximin plts low, chronic issue albumin low at 1.5 now with concerns for HRS which for him would be a terminal diagnosis, not a candidate for HEEL L[facility]ER consult palliative care (5) Pleural cavity effusion: could be extension of his ascites fluid. Transudative but cultures growing coag negative staph, enterococcus will treat with 10 days of antibiotics, repeat thoracentesis Thursday 11/16 is what was recommend would hold off on thoracentesis at this time since his renal function is deteriorating needs palliative care consult (6) COPD (chronic obstructive pulmonary disease): No acute issues -Continue albuterol neb 4 times daily day 9 of Ertapenem, but this is covering Klebsiella foot wound and pleural fluid infection -Restart home inhalers now that he is extubated (7) BPH (benign prostatic hyperplasia): Fully catheter was placed patient typically is on Flomax (8) GERD (gastroesophageal reflux disease): PPI be held and Pepcid to be utilized intravenously (9) Open wound of left foot: Patient is been nursing an open wound in his left foot for some time. He previously has had bones removed according to his family for osteomyelitis secondary to a crush injury that occurred at work. Patient is missing the fourth and fifth toe on the right foot and the fourth toe on the left foot he has a 3 x 5 cm open wound on the dorsum of his left foot that goes down to the fatty tissue. CT scan of the foot suspicious for osteomyelitis of the third proximal phalanx Wound culture growing gram-negative rods -- Klebsiella that is sensitive to Ertapenem -Continue ertapenem, day 9 ortho consulted, no plans for debridement, will follow up with ortho and ID at [place] vascular consult, patient with adequate blood flow to extremities for healing (10) Ascites: As above, status post paracentesis No evidence of SBP continue Lasix and Spironolactone (11) Pancytopenia: Secondary to cirrhosis of liver Follow CBC, Hb and plts low but stable (12) Neuropathy: Severe in bilateral lower extremities -Typically is on gabapentin for this -Restart gabapentin (13) Barretts esophagus: Continue antacid (14) Hyperlipidemia: -Holding home statin for now (15) DVT prophylaxis: SCDs, plts are low FEN: was on tube feeds until extubated, will get swallow evaluation -- easy to chew foods, liquids with straw Disposition- plan for inpatient rehab but he needs 10 days of IV antibiotics and then repeat thoracentesis to evaluate for bacterial infection likely to rehab Sunday/Sunday Admission and Anticipated Discharge Date Admission Date: November 08, 2019 Subjective patient is sleeping a lot, he will wake up and respond appropriately he is eating and drinking well, no change in his appetite at all reviewed lab work, cr up to 2.0, HCO3 down over the past 24 hours his recorded UO via de leon was only 400cc UA showed a Urine Cr of only [address] Rizvi, he is concerned about the patient developing hepatorenal syndrome we will start triple therapy with albumin, octreotide, midodrine and look for improvement in his Cr spoke with the patient's sister outside the room about the seriousness of his condition she says that her sisters as well as the patient's understand that he is very sick they know that his time is limited she said that he was diagnosed with cirrhosis due to alcohol abuse about 5 years ago but he kept drinking for another 3 years he has been sober for almost 2 years I explained to his sister that if this is in fact HRS then his 1 month mortality is about 50% I called his Mindi and we had a long discussion about his situation she confirms that she knows his time is limited, when they were in [place] he was given about 3 months to live he was seen by the liver transplant service there and he was told that he is NOT a candidate for transplant I discussed that with HRS, if he does not improve then HEEL LAYER is not appropriate because he is not a transplant candidate she understood this and she mentioned that she hopes he can pass away peacefully I asked her about code status, she said that he would want to remain on life support long I explained that if his heart would stop or he would stop breathing at this time, it would be a terminal event due to liver/renal failure she understood and agreed that performing CPR would not be in his best interest however, the patient is still alert and oriented so I needed to discuss with him re-visited [facility] in the afternoon, he was sleeping but woke up easily I explained to him the concerns about HRS and that he may get worse over the next few days he said that his goal is to get back home, that is why he was always motivated to go to rehab and get stronger we discussed that getting home in his deconditioned state was not possible, his confirmed this with me, saying she cannot care for him at home I asked him about CPR and intubation and he said he would want them but not remain on them fpc I am not sure he grasps how sick he really is, he just has simple goals not based on the reality of his situation I will ask palliative care to see patient to help speak with him and his family I have had two conversations with two separate sisters, they understand that he is not getting better and that this is terminal his also understands and even mentioned that she would want him to peacefully ultimately if his renal function deteriorates, I think hospice either inpatient or at SNF would be appropriate Review of Systems Review of Systems: All systems reviewed & are unremarkable except as noted in Subjective Constitutional: + fatigue and + weakness; no fever Respiratory: no cough and no dyspnea Cardiovascular: + edema; no chest pain Gastrointestinal: + diarrhea/loose stools; no abdominal pain, no nausea, no vomiting and no constipation Musculoskeletal: + muscle weakness Physical Exam Constitutional: well developed, well nourished and + obese; no acute distress Eyes: PERRL, conjunctivae normal, anicteric sclerae ENMT: external ear and nose normal, oropharynx normal Neck: trachea midline, no thyromegaly Respiratory: normal respiratory effort; no respiratory distress, no labored breathing and no cough Auscultation: + diminished lung sounds (bases) Cardiovascular: Rate/Rhythm: regular rate and regular rhythm Heart Sounds: normal S1 and normal S2; no murmur Extremities: normal capillary refill and + edema Gastrointestinal (Abdomen): Inspection/Auscultation: + abdomen distended and + abdominal edema Percussion/Palpation: + ascites and + abdomen firm; abdomen nontender Musculoskeletal: Head/Neck/Chest: normocephalic, head atraumatic and neck supple Extremities: extremities normal to inspection and + abnormal strength (generalized weakness) Skin: + turgor decreased, + rash (venous stasis discoloration of legs) and + wound (left dorsal foot) Neurologic: patellar DTR's 2+ bilat, sensation intact and PERRL, EOMI, accommodation nl, no face palsy, no dysarthria Psychiatric: Orientation: alert (sleepy but wakes up easily) and oriented x 3 Lymphatic: no cervical or axillary lymphadenopathy Results & Data Results & [facility] ([facility]) Vital Signs (Past 12 Hours) Vital Signs Temp Pulse Pulse Resp BP Pulse Ox 11/16/19 15:37 36.7 C 90 18 149/75 H 94 11/16/19 11:04 36.9 C 60 17 104/56 L 98 11/16/19 08:00 70 11/16/19 04:42 37.2 C 62 20 103/42 L 94 Laboratory Results Laboratory Results - last 24 hr 11/16/19 11/16/19 11/16/19 06:05 06:05 06:10 WBC 7.71 RBC 3.20 L Hgb 9.8 L Hct 30.7 L MCV 95.9 MCH 30.6 MCHC 31.9 L RDW Std Deviation 73.6 H RDW Coeff of Bret 21.2 H Plt Count 78 L MPV 11.2 H Sodium 135 L Potassium 5.1 Chloride 109 H Carbon Dioxide 19 L Anion Gap 8.0 BUN 52 H Creatinine 2.06 H D Est Cr Clr Drug Dosing 53.0 Est GFR ( Amer) 40.0 Est GFR (Non-Af Amer) 34.5 BUN/Creatinine Ratio 25.1 H Glucose 84 Calcium 8.0 L Total Bilirubin 1.3 H AST 33 ALT 26 Alkaline Phosphatase 136 H Ammonia 37.0 H Total Protein 6.0 L Albumin 1.6 L Globulin 4.4 H Albumin/Globulin Ratio 0.4 L Urine Color Urine Appearance Urine pH Ur Specific Gilmer Urine Protein Urine Glucose (UA) Urine Ketones Urine Blood Urine Nitrite Urine Bilirubin Urine Urobilinogen Ur Leukocyte Esterase Urine WBC (Auto) Urine RBC (Auto) U Hyaline Cast (Auto) U Epithel Cells (Auto) Urine Bacteria (Auto) Urine Mucus Ur Random Creatinine Ur Random Sodium 11/16/19 11/16/19 10:25 10:25 WBC RBC Hgb Hct MCV MCH MCHC RDW Std Deviation RDW Coeff of Bret Plt Count MPV Sodium Potassium Chloride Carbon Dioxide Anion Gap BUN Creatinine Est Cr Clr Drug Dosing Est GFR ( Amer) Est GFR (Non-Af Amer) BUN/Creatinine Ratio Glucose Calcium Total Bilirubin AST ALT Alkaline Phosphatase Ammonia Total Protein Albumin Globulin Albumin/Globulin Ratio Urine Color Dark Yellow Urine Appearance Clear Urine pH 5.0 Ur Specific Gilmer 1.018 Urine Protein Trace H Urine Glucose (UA) Negative Urine Ketones Trace H Urine Blood 2+ H Urine Nitrite Negative Urine Bilirubin Negative Urine Urobilinogen Negative Ur Leukocyte Esterase 1+ H Urine WBC (Auto) 10-30 H Urine RBC (Auto) 10-30 H U Hyaline Cast (Auto) 10-30 H U Epithel Cells (Auto) 20-30 H Urine Bacteria (Auto) 1+ H Urine Mucus Present A Ur Random Creatinine 148.0 Ur Random Sodium 10 Medications Administered Current Inpatient Medications Albuterol (Albut/Ipratrop 3mg/0.5mg Neb 3 Ml Vial) 3 ml NEB QIDR PRN PRN Reason: Shortness Of Breath Or Wheezing Stop: 12/08/19 12:20 Enoxaparin Sodium (Enoxaparin Inj 40 Mg/0.4 Ml Syr) 40 mg SQ QAM [facility] Stop: 12/10/19 10:14 Last Admin: 11/16/19 08:03 Dose: 40 mg Documented by: Furosemide (Furosemide 40 Mg Tab) 40 mg PO BID17 [facility] Stop: 12/11/19 16:59 Last Admin: 11/15/19 09:20 Dose: 40 mg Documented by: Heparin Sodium (Beef Lung) (Heparin 10 Unit/Ml 5 Ml Flush) 5 ml FLUSH PRN PRN PRN Reason: Flush Stop: 12/08/19 23:57 Ertapenem 1,000 mg/ Sodium (Chloride) 60 mls @ 100 mls/hr IV Q24H [facility] Stop: 11/17/19 07:59 Last Infusion: 11/16/19 08:24 Dose: Infused Documented by: Albumin Human (Albumin 25%) 100 mls @ 50 mls/hr IV Q8 [facility] Stop: 11/19/19 13:59 Last Infusion: 11/16/19 16:03 Dose: Infused Documented by: Lactulose (Lactulose Syrup 30 Gm/45 Ml Udp) 30 gm PO TID [facility] Stop: 12/16/19 08:59 Last Admin: 11/16/19 13:58 Dose: 30 gm Documented by: Miconazole Nitrate (Miconazole Nitrate Powder 43 Gm) 1 appln EXT PRN PRN PRN Reason: Affected Skin Folds Stop: 12/13/19 08:26 Last Admin: 11/16/19 05:58 Dose: 1 appln Documented by: Midodrine (Midodrine Hcl 2.5 Mg Tab) 5 mg PO Q8 [facility] Stop: 12/16/19 13:59 Last Admin: 11/16/19 14:58 Dose: 5 mg Documented by: Nystatin (Nystatin Powder 15gm Btl) 1 appln EXT PRN PRN PRN Reason: Affected Skin Folds Stop: 12/12/19 18:04 Last Admin: 11/15/19 09:26 Dose: 1 appln Documented by: Octreotide Acetate (Octreotide Acetate 100 Mcg/Ml Vial) 100 mcg SQ Q8H [facility] Stop: 12/16/19 13:29 Last Admin: 11/16/19 13:58 Dose: 100 mcg Documented by: Pantoprazole Sodium (Pantoprazole 40 Mg Tab) 40 mg PO QAM [facility] Stop: 12/12/19 08:59 Last Admin: 11/16/19 08:03 Dose: 40 mg Documented by: Potassium Chloride (Potassium Chloride 10 Meq Tabcr) 10 meq PO QAM [facility] Stop: 12/12/19 08:59 Last Admin: 11/15/19 09:18 Dose: 10 meq Documented by: Rifaximin (Rifaximin 550 Mg Tablet) 550 mg PO BID [facility] Stop: 12/13/19 20:59 Last Admin: 11/16/19 08:04 Dose: 550 mg Documented by: Sodium Bicarbonate (Sodium Bicarbonate 650 Mg Tab) 650 mg PO TID [facility] Stop: 12/16/19 08:59 Last Admin: 11/16/19 13:58 Dose: 650 mg Documented by: Spironolactone (Spironolactone 25 Mg Tab) 25 mg PO QAM [facility] Stop: 12/09/19 08:59 Last Admin: 11/15/19 09:18 Dose: 25 mg Documented by: PG Care Time/CCT Total # of Minutes Spent Total Time Spent: 70 Total Time Spent with Patient: Total time spent is greater than 50% in coordination of care (as documented) at patient's floor/unit and/or counseling patient: 30 minutes total talking with family members [address] Rizvi 30 minutes visiting patient (twice), speaking with him about goals of care, reviewing chart, reviewing records from [place], formulating plan Prolonged Care Time Prolonged Care Time: Yes Total Prolonged Care Time: 35 Coding Level of Care Code 03759 Subseq Hosp Care Lvl 3 Diagnoses Acute kidney injury N17.9 Acute respiratory failure J96.00 Hepatic encephalopathy K72.90 Cirrhosis K74.60 Pleural cavity effusion J90 COPD (chronic obstructive pulmonary disease) J44.9 BPH (benign prostatic hyperplasia) N40.0 GERD (gastroesophageal reflux disease) K21.9 Open wound of left foot S91.302D Encounter type: subsequent encounter Ascites R18.8 Pancytopenia D61.818 Neuropathy G62.9 Barretts esophagus K22.70 Hyperlipidemia E78.5 DVT prophylaxis Z29.9 Additional Codes Prolonged Care Time - Prolonged Care Time: Yes ([id number]) (1) Open wound of left foot Encounter type: subsequent encounter Qualified Code(s): S91.302D - Unspecified open wound, left foot, subsequent encounter
[2019-11-16] MEDS: ALBUMIN 25% 50 ML IV SCH ×2 (22:23→23:24)
[2019-11-17] MEDS: ALBUMIN 25% 50 ML IV SCH ×7 (00:12→23:48)
[2019-11-17] MEDS: OCTREOTIDE ACETATE 100 MCG/ML VIAL SQ SCH ×3 (06:02→20:59)
[2019-11-17] MEDS: MIDODRINE HCL 2.5 MG TAB PO SCH ×3 (06:03→21:02)
[2019-11-17] MEDS: ENOXAPARIN INJ 40 MG/0.4 ML SYR SQ SCH (07:31)
[2019-11-17] MEDS: LACTULOSE SYRUP 30 GM/45 ML UDP PO SCH ×3 (07:31→21:01)
[2019-11-17] MEDS: RIFAXIMIN 550 MG TABLET PO SCH ×2 (07:32→20:59)
[2019-11-17] MEDS: SODIUM BICARBONATE 650 MG TAB PO SCH ×3 (07:32→20:59)
[2019-11-17] MEDS: PANTOprazole 40 MG TAB PO SCH (07:32)
--- NOTE | 2019-11-17 07:57 | Hospitalist Progress Note ---
Date of Service November 17, 2019 Assessment & Plan (1) Acute kidney injury: Concern for hepatorenal syndrome. Nephrology is following. Modest improvement of creatinine on 11/16-> 1.8 he is obviously volume overloaded with ascites, edema K is normal, stopped Lasix, Aldactone, Valsartan, Potassium 10mEq daily Nephrology has noted that urine Cr is low at 10, have concerns that this represents hepatorenal syndrome Dr. Rizvi, will try Midodrine, Albumin and Octreotide to look for improvement in UO and Cr patient is NOT a candidate for [employer] since he is not a liver transplant candidate, confirms that [place] said he was not a candidate will consult palliative care to help discuss goals of care, code status personally talked with his , she would say DNR but the patient still wants full code we also talked personally about hospice patient does not wish to pursue this route at this time (2) Acute respiratory failure: With acute respiratory failure with hypercarbia on admission 7 days ago, likely due to hypoventilation from elevated ammonia level intubated on admission due to profound lethargy, concerns for inability to protect airway successfully extubated 11/09 breathing well on room air ever since he was extubated He is very somnolent during our visit says he is never been tested for sleep apnea we will start with a nocturnal oximetry test on the evening of 11/16- 11/17 CTA chest negative for PE, had pleural effusion, s/p thoracentesis, transudative, growing Enterococcus plan to reassess pleural effusion however, this can likely be put on hold since his worsening renal function will determine his prognosis (3) Hepatic encephalopathy: On presentation his ammonia was 200 and he was found gurgling in his bed at rehab, had an absent gag reflex and no response to pain. He was intubated. treated with Lactulose via OG tube while intubated ammonia responded well continue Lactulose 30gm TID, continue Rifaximin moving his bowels a few times a day diuretics nowon hold Lasix and Aldactone due to decreased UO and rise in Cr to 2.0 -Continue rifaximin PO -Follows with hepatology at [place] was just seen in October, he is NOT a candidate for transplant -Follow ammonia level other daily acute encephalopathy appears to be resolved (4) Cirrhosis: diagnosed 5 years ago, did not stop drinking until almost 2 years ago Alcoholic cirrhosis with history of esophageal varices and portal hypertension causing ascites hold Lasix and Spironolactone due to rise in Cr continue Rifaximin plts low, chronic issue albumin low at 1.5 now with concerns for HRS which for him would be a terminal diagnosis, not a candidate for [employer] consult palliative care (5) Pleural cavity effusion: could be extension of his ascites fluid. Transudative but cultures growing coag negative staph, enterococcus will treat with 10 days of antibiotics, repeat thoracentesis Thursday 11/16 is what was recommend would hold off on thoracentesis at this time since his renal function is deteriorating needs palliative care consult (6) COPD (chronic obstructive pulmonary disease): No acute issues -Continue albuterol neb 4 times daily day 9 of Ertapenem, but this is covering Klebsiella foot wound and pleural fluid infection -Restarted home inhalers (7) BPH (benign prostatic hyperplasia): Fully catheter was placed patient typically is on Flomax (8) GERD (gastroesophageal reflux disease): PPI be held and Pepcid to be utilized intravenously (9) Open wound of left foot: Patient is been nursing an open wound in his left foot for some time. He previously has had bones removed according to his family for osteomyelitis secondary to a crush injury that occurred at work. Patient is missing the fourth and fifth toe on the right foot and the fourth toe on the left foot he has a 3 x 5 cm open wound on the dorsum of his left foot that goes down to the fatty tissue. CT scan of the foot suspicious for osteomyelitis of the third proximal phalanx Wound culture growing gram-negative rods -- Klebsiella that is sensitive to Ertapenem -Continue ertapenem, day 9 ortho consulted, no plans for debridement, will follow up with ortho and ID at [place] vascular consult, patient with adequate blood flow to extremities for healing (10) Ascites: As above, status post paracentesis No evidence of SBP Lasix and Spironolactone currently on hold (11) Pancytopenia: Secondary to cirrhosis of liver Follow CBC, Hb and plts low but stable (12) Neuropathy: Severe in bilateral lower extremities -Typically is on gabapentin for this -Restarted gabapentin now more sleepy will also hold (13) Barretts esophagus: Continue antacid (14) Hyperlipidemia: -Holding home statin for now (15) DVT prophylaxis: SCDs, plts are low Disposition- plan for inpatient rehab but he needs 10 days of IV antibiotics and then repeat thoracentesis to evaluate for bacterial infection likely to rehab Sunday/Sunday Admission and Anticipated Discharge Date Admission Date: November 08, 2019 Subjective Patient elena very weak. He falls asleep easily. His is at the bedside and updated. He at times has mixed direction whether he wants to "go home just to be home and understands he will get optimal care versus going to rehab and pursuant of the maximum aggressive therapy and rehab to try to improve his life. We discussed quite frankly the fact that his alcoholism and cirrhosis are at a point where he will not return to his previous level of functioning but is unclear how much he can improve the remains abstinent with good attention to treatment with diet and diuretics. We did once again discuss hospice therapy at this time as he initially said all he wanted he was go home but after he understood that he will receive suboptimal care he is now continues to be interested in rehab after discharge. Review of Systems Review of Systems: Moderate distress and fatigue, falling asleep easily during exam no headache, blurry or double vision no speech or swallowing issues no chest pain, pressure or palpitations no shortness of breath, cough or wheezes Generalized mild diffuse abdominal pain, without nausea or vomiting, persistent plan diarrhea due to lactulose no dysuria, hematuria or frequency no focal joint pain significant bilateral lower extremity no back pain, CVA tenderness or radicular pain Improving appearance of left foot dorsal wound no focal signs of weakness or numbness no complaints or anxiety Physical Exam Physical Exam: The patient appeared chronically ill fatigued and lethargic Vital signs as documented. Head exam is normocephalic atraumatic no scleral icterus Neck is with JVD, no thyromegaly, or carotid bruits. Lungs are clear diminished at the bases Cardiac exam, Rhythm is regular.. No murmurs, rubs or gallops. Abdominal exam reveals normal bowel sounds, soft distended and dull consistent with ascites Extremities are 2+ bilateral edema and left dorsal foot has a wound which is healing Neurologic exam is alert and oriented, but is fatigued and I believe his not completely grasping the depth and breath of the situation. No focal loss of strength or sensation Skin is with peeling prehospital foot wound Psychologically is with depression. Results & Data Results & Data ([facility]) Vital Signs (Past 12 Hours) Vital Signs Temp Pulse Pulse Resp BP Pulse Ox 11/17/19 06:54 97.9 F 55 L 19 117/54 L 91 11/17/19 04:28 97.7 F 57 L 19 122/60 94 11/17/19 00:06 59 L 11/16/19 23:31 98.1 F 58 L 20 114/57 L 95 PG Care Time/CCT Total # of Minutes Spent Total Time Spent with Patient: Total time spent is greater than 50% in coordination of care (as documented) at patient's floor/unit and/or counseling patient: Coding Level of Care Code 45345 Subseq Hosp Care Lvl 3 Diagnoses Acute kidney injury N17.9 Acute respiratory failure J96.00 Hepatic encephalopathy K72.90 Cirrhosis K74.60 Pleural cavity effusion J90 COPD (chronic obstructive pulmonary disease) J44.9 BPH (benign prostatic hyperplasia) N40.0 GERD (gastroesophageal reflux disease) K21.9 Open wound of left foot S91.302D Encounter type: subsequent encounter Ascites R18.8 Pancytopenia D61.818 Neuropathy G62.9 Barretts esophagus K22.70 Hyperlipidemia E78.5 DVT prophylaxis Z29.9 (1) Open wound of left foot Encounter type: subsequent encounter Qualified Code(s): S91.302D - Unspecified open wound, left foot, subsequent encounter
[2019-11-17 08:38] LABS: Hematocrit (blood only) 29.4 % (42-52); Hemoglobin 9.7 g/dL (14.0-18.0); Mean Corpuscular Hemoglobin 31.6 pg (25-34); Mean Corpuscular Volume 95.8 fL (80-100); Mean Platelet Volume 11.4 fL (7.4-10.4); Platelet Count 87 K/uL (130-400); RDW Coefficient of Variation 20.9 % (11.5-14.5); RDW Standard Deviation 72.4 fL (36.4-46.3); Red Blood Count 3.07 M/uL (4.7-6.1); White Blood Count 6.01 K/uL (4.8-10.8)
[2019-11-17 09:05] LABS: Albumin Level 2.2 gm/dl (3.4-5.0); BUN Creatinine Ratio 29.7 (10-20); Calcium 8.1 mg/dl (8.5-10.1); Creatinine Clr Calc Pharmacy 59.6 ml/min; Est GFR (African American) 45.8; Est GFR (Non-African American) 39.5; Potassium 5.1 mmol/L (3.5-5.1)
[2019-11-17 09:11] LABS: Albumin Globulin Ratio 0.5 (0.9-2); Bilirubin,Total 2.1 mg/dl (0.2-1); Total Protein 6.2 gm/dl (6.4-8.2)
--- NOTE | 2019-11-17 12:10 | Nephrology Progress Note ---
Date of Service November 17, 2019 Assessment & Plan (1) Acute kidney injury: * Clinically consistent with HRS 1 * Creatinine stable x 24 hours (2.0-->1.8 mg/dL) with triple therapy * Non-oliguric, UOP improved with therapy * Unfortunately prognosis is poor * Continue midodrine 5 mg TID, octreotide 100 mcg TID, and albumin 25 g TID * Hypotension responsive appropriate on current dose of midodrine * Baseline creatinine <1 mg/dL * Electrolytes acceptable * Increased TBW but intravascularly dry: low sodium diet and 1.5 L daily fluid restriction, diuretics held pending stability in kidney function * Cifuentes at discretion of nursing staff * NaHCO3 650 TID for NAGMA associated with GI losses and renal dysfunction * Medications appropriately dosed for kidney function * No current indication for dialysis. I would not expect any therapeutic benefit to dialysis unless used as bridge to liver transplant (2) Cirrhosis: * MELD-Na >20. Child-Jerez C. * Worsening portal hypertension with ascites, recurrent HE, and evidence of HRS. * Prognosis is unfortunately poor. * I reviewed notes from [facility] (notably hepatology) - BMI and limited function status were highlighted as major barriers to transplant and formal decision was deferred pending recovery from acute illness and appropriate follow up * Palliative care consult pending to assist with goals of care (3) COPD (chronic obstructive pulmonary disease): (4) Ascites: * Diagnostic paracentesis, 11/07, negative for SBP. Completed course of ertapenem for Klebsiella bacteremia and wound infection. Admission and Anticipated Discharge Date Admission Date: November 08, 2019 Subjective No acute events overnight. Sorin remains very weak. He remains frustrated by his inability to walk or get out of bed. He does not think his abdomen is any more swollen or edema worse. Cifuentes is draining cloudy yellow urine. Sorin denies any pain. He told me that he is thinking clearer this morning. He also said that he is confused by many difficult doctors telling him different things. He is admits that he is having difficulty processing information relating to his health condition. He also said that if he is going to , he would like to do it at home and spend as much time with his grandchildren and great grandchildren before he passes. He know that he is very sick and that he could from his liver condition but he also notes that he was told that he would be following up with a liver doctor at [facility] in December. He is having trouble understanding why his condition would have changed so drastically before he was even able to follow up. He acknowledges working on a living will with the palliative care team at [facility] but he does not recall what that document said. He states that his goal remains to "get better." Review of Systems Review of Systems: All systems reviewed & are unremarkable except as noted in HPI & below Physical Exam Constitutional: + morbidly obese; no acute distress Eyes: no scleral abnormality and no corneal abnormality ENMT: Mouth: + dry oral mucous membranes; no oral mucosal abnormality Neck: normal visual inspection and trachea midline Respiratory: normal respiratory effort Auscultation: lungs clear to auscultation bilaterally and + diminished lung sounds Cardiovascular: Rate/Rhythm: regular rate Heart Sounds: normal S1 and normal S2; no murmur Vessels: no JVD Extremities: + edema Gastrointestinal (Abdomen): Inspection/Auscultation: + abdomen distended Percussion/Palpation: abdomen soft; abdomen nontender Musculoskeletal: Extremities: + petechiae; no cyanosis and no clubbing Skin: + turgor decreased and + ecchymosis Neurologic: Motor/Sensory: no tremor and no asterixis Psychiatric: Orientation: alert and oriented x 3 Results & Data ([facility]) Vital Signs (Past 12 Hours) Vital Signs Temp Pulse Pulse Resp BP BP Pulse Ox 11/17/19 11:52 36.4 C L 54 L 19 115/64 94 11/17/19 08:00 47 L 11/17/19 06:54 36.6 C 55 L 19 117/54 L 91 11/17/19 04:28 36.5 C 57 L 19 122/60 94 11/17/19 00:06 59 L Laboratory Results Laboratory Results - last 24 hr 11/17/19 11/17/19 08:15 08:15 WBC 6.01 RBC 3.07 L Hgb 9.7 L Hct 29.4 L MCV 95.8 MCH 31.6 MCHC 33.0 RDW Std Deviation 72.4 H RDW Coeff of Bret 20.9 H Plt Count 87 L MPV 11.4 H Sodium 137 Potassium 5.1 Chloride 109 H Carbon Dioxide 19 L Anion Gap 9.0 BUN 55 H Creatinine 1.84 H Est Cr Clr Drug Dosing 59.6 Est GFR ( Amer) 45.8 Est GFR (Non-Af Amer) 39.5 BUN/Creatinine Ratio 29.7 H Glucose 89 Calcium 8.1 L Total Bilirubin 2.1 H D AST 26 ALT 23 Alkaline Phosphatase 123 H Total Protein 6.2 L Albumin 2.2 L Globulin 4.0 Albumin/Globulin Ratio 0.5 L PG Care Time/CCT Total # of Minutes Spent Total Time Spent with Patient: Total time spent is greater than 50% in coordination of care (as documented) at patient's floor/unit and/or counseling patient: Coding Level of Care Code 69992 Subseq Hosp Care Lvl 3 Diagnoses Acute kidney injury N17.9 Cirrhosis K74.60 COPD (chronic obstructive pulmonary disease) J44.9 Ascites R18.8
[2019-11-18] MEDS: ALBUMIN 25% 50 ML IV SCH ×6 (05:19→22:18)
[2019-11-18] MEDS: MIDODRINE HCL 2.5 MG TAB PO SCH ×3 (05:25→22:18)
[2019-11-18] MEDS: OCTREOTIDE ACETATE 100 MCG/ML VIAL SQ SCH ×2 (05:55→13:29)
[2019-11-18 06:58] LABS: INR 1.4 (0.9-1.1); Prothrombin Time 14.5 Seconds (9.0-12.0)
[2019-11-18 07:27] LABS: Albumin Level 2.4 gm/dl (3.4-5.0); BUN Creatinine Ratio 32.6 (10-20); Creatinine Clr Calc Pharmacy 66.8 ml/min; Est GFR (African American) 52.3; Est GFR (Non-African American) 45.1; Potassium 5.3 mmol/L (3.5-5.1)
[2019-11-18 07:29] LABS: Albumin Globulin Ratio 0.6 (0.9-2); Bilirubin,Total 1.7 mg/dl (0.2-1); Globulin 3.8 gm/dl (2.5-4.0); Total Protein 6.2 gm/dl (6.4-8.2)
[2019-11-18] MEDS: ENOXAPARIN INJ 40 MG/0.4 ML SYR SQ SCH (09:15)
[2019-11-18] MEDS: LACTULOSE SYRUP 30 GM/45 ML UDP PO SCH ×3 (09:15→22:16)
[2019-11-18] MEDS: SODIUM BICARBONATE 650 MG TAB PO SCH ×3 (09:15→22:18)
[2019-11-18] MEDS: PANTOprazole 40 MG TAB PO SCH (09:16)
[2019-11-18] MEDS: RIFAXIMIN 550 MG TABLET PO SCH ×2 (09:16→22:19)
--- NOTE | 2019-11-18 09:41 | Palliative Care Consultation ---
Date of Consultation November 18, 2019 Assessment & Plan (1) Goals of care, counseling/discussion: This patient is an unfortunate gentleman who was admitted on 11/08/19 with AMS which ultimately led to him being intubated and placed in the intensive care unit. He has an extensive PMH that includes alcohol cirrhosis, morbid obesity, and COPD. He has had a recent inpatient hospitalization at [facility] from 10/19-10/30 with sepsis s/p encephalopathy. Palliative care was involved with him at [facility] where he was evalated for a possible liver transplant and unfortunately, is not a candidate. He was also treated for his sepsis. He initially was diagnosed with cirrhosis in 2019 in [place], [place] through their GI. MELD score is > 20. He has required multiple paracentesis in the past and this admission he did have a paracentesis and thoracentesis (1.6 liters removed) on November 07. The patient was successfully extubated on 11/11/19. It is suspected that he may have hepatorenal syndrome and is not a candidate for CRRT. Palliative care has been consulted to discuss goals of care. -I met with the patient in room 276. He was awake, sitting upright in his bed in no apparent distress. -We discussed palliative care, his current condition and he was able to explain why he is in the hospital and his disease progression. -He understands the gravity of his illness, and at this time would just 'like to go home', -We talked about what that would look like and discussed the differences between home health and Hospice -The patients sister works for [facility] [facility] and he understands the process. -I did phone his Mindi and had a conversation with her while still at the bedside as well. -We discussed code status and he has understanding of Full Code vs DNR - he does not want to go through CPR and be placed on a ventilator again. He does understand that we would keep him comfortable in the event this did occur, Will change him to a DNR in the computer to reflect conversation. -Patient lives in a one story home and per is ADA accessible. She talked with her 3 sons, who are local - one actually lives directly next door to them and plan to rotate shifts to help. They also have 9 grandchildren, some are adult and able to assist as well. -Patient is a one assist to stand. -I discussed concerns regarding behavior changes with liver involvement and she stated she has noticed them already and I expressed how and when to utilize calling Hospice, she is understanding. -Family is understanding that paracentesis would typically not be performed under Hospice. Family has understanding that hospice can be revoked,but we would want to focus on symptom management and calling hospice vs 911. They understood. -We completed a POLST form which the patients signed indicating: DNR/DNI, Comfort Measures only, trial abx and no artificial hydration/nutrition. A copy was placed on the chart. -We discussed SNF as an option and Hospice respite, should they have challenges, but I feel confident in this plan moving forward. -For now, continue treatment while here, and transition to Hospice upon discharge. -All questions answered. Discussed the above with the hospitalist and case management team who will work towards placing a referral to [facility] (family choice since the patients sister is an employee) with a possible discharge or . -Family will need hospital bed, bedside table, commode and WC. Would suggest O2 on standby as they will not be pursuing paracentesis. -PPS 40% (2) COPD (chronic obstructive pulmonary disease): (3) Cirrhosis: (4) Hepatic encephalopathy: (5) Altered mental status: Altered mental status type: unspecified Qualified Code(s): R41.82 - Altered mental status, unspecified Supervising Physician Co-Signing Physician Notes Chart reviewed, patient seen and examined, patient sister at bedside. Patient known to me from [facility] Patient awake and alert, mild confusion, no acute distress HEENT: EOMI, no scleral icterus Respiratory: Unlabored CV: Bradycardic, 2-3+ lower extremity edema Abdomen: Distended, nontender Extremities: Generalized weakness, nonambulatory Neuro: Oriented to person and place, recognizes family, mild confusion Agree with above note, assessment and plan as per COLTON Broderick -plan is for patient to return home under hospice care. History of Present Illness Reason for Consultation: Goals of care Requesting Physician: Dr. Coon Attending Physician: Marco Coon MD History of Present Illness This patient is an unfortunate gentleman who was admitted on 11/08/19 with AMS which ultimately led to him being intubated and placed in the intensive care unit. He has an extensive PMH that includes alcohol cirrhosis, morbid obesity, and COPD. He has had a recent inpatient hospitalization at [facility] from 10/19-10/30 with sepsis s/p encephalopathy. Palliative care was involved with him at [facility] where he was evalated for a possible liver transplant and unfortunately, is not a candidate. He was also treated for his sepsis. He initially was diagnosed with cirrhosis in 2019 in [place], [place] through their GI. MELD score is > 20. He has required multiple paracentesis in the past and this admission he did have a paracentesis and thoracentesis (1.6 liters removed) on November 07. The patient was successfully extubated on 11/11/19. It is suspected that he may have hepatorenal syndrome and is not a candidate for CRRT. Palliative care has been consulted to discuss goals of care. Please see A/P for further details. Thank you for involving palliative care services for this patient. Allergies Allergy/AdvReac Type Severity Reaction Status Date / Time vancomycin Allergy Intermediate Hives Verified 11/15/19 11:33 adhesive tape Allergy Unknown Unknown Unverified 11/09/19 17:17 Cephalosporins Allergy Unknown Unknown Unverified 11/08/19 08:48 ciprofloxacin Allergy Unknown Unknown Unverified 11/08/19 08:48 linezolid Allergy Unknown Unknown Unverified 11/08/19 08:48 Home Medications Home Medications Medication Instructions Recorded Confirmed Type acetaminophen [Tylenol] 650 mg PO QID PRN 11/08/19 11/08/19 History albuterol sulfate 2 puff INHALATION Q6 PRN 11/08/19 11/08/19 History atorvastatin 20 mg PO HS 11/08/19 11/08/19 History bisacodyl 10 mg DE DAILY PRN 11/08/19 11/08/19 History collagenase clostridium histo. 1 applic TOPICAL DAILY 11/08/19 11/08/19 History [Santyl] cyanocobalamin (vitamin B-12) 500 mcg PO QAM 11/08/19 11/08/19 History dextromethorphan-guaifenesin 10 ml PO Q6H PRN 11/08/19 11/08/19 History docusate sodium 100 mg PO BID 11/08/19 11/08/19 History fluticasone furoate-vilanterol 1 inh INHALATION QAM 11/08/19 11/08/19 History furosemide 40 mg PO BID 11/08/19 11/08/19 History gabapentin 100 mg PO TID 11/08/19 11/08/19 History lactulose 15 ml PO QID 11/08/19 11/08/19 History lidocaine [Lidoderm] 2 patch TOPICAL QAM 11/08/19 11/08/19 History magnesium hydroxide [Milk of 30 ml PO DAILY PRN 11/08/19 11/08/19 History Magnesia] nystatin 1 applic TOPICAL QID 11/08/19 11/08/19 History pantoprazole 40 mg PO QAM 11/08/19 11/08/19 History polyethylene glycol 3350 [Miralax] 17 g PO QDL PRN 11/08/19 11/08/19 History prednisone 30 mg PO QAM 11/08/19 11/08/19 History rifaximin [Xifaxan] 550 mg PO BID 11/08/19 11/08/19 History sennosides-docusate sodium 1 tab-cap PO QDL PRN 11/08/19 11/08/19 History [Senokot-S] sodium phosphates [Fleet Enema] 133 ml DE DAILY PRN 11/08/19 11/08/19 History spironolactone 100 mg PO BID 11/08/19 11/08/19 History sucralfate 1 g PO QAM 11/08/19 11/08/19 History tamsulosin 0.4 mg PO QAM 11/08/19 11/08/19 History thiamine HCl (vitamin B1) 100 mg PO QAM 11/08/19 11/08/19 History umeclidinium [Incruse Ellipta] 1 inh INHALATION QAM 11/08/19 11/08/19 History zinc sulfate 220 mg PO QAM 11/08/19 11/08/19 History Patient History Medical History (Updated 11/18/19 @ 12:18 by COLTON Medrano) Ascites Barretts esophagus BPH (benign prostatic hyperplasia) Cirrhosis COPD (chronic obstructive pulmonary disease) GERD (gastroesophageal reflux disease) Goals of care, counseling/discussion Hyperlipidemia Neuropathy Pancytopenia Peripheral arterial disease Social History Smoking Status: Unknown if ever smoked Preferred Language: Singaporean Communication Ability: Unable Communication Ability Comment: sedated, intubated Steel Analyst Required: No Beliefs That Will Affect Care: None Current Living Situation: Spouse Current Living Situation Comment: currently at [facility] Other Information That Helps Us Care for You: No Feels Safe at Home: Declines to Answer Review of Systems Review of Systems: All systems reviewed & are unremarkable except as noted in HPI & below Physical Exam Constitutional: comfortable, + lethargic and + overweight Neck: trachea midline, no thyromegaly Respiratory: + uses accessory muscles Auscultation: + diminished lung sounds Cardiovascular: Rate/Rhythm: regular rate and + bradycardic Extremities: normal capillary refill and + edema Gastrointestinal (Abdomen): Inspection/Auscultation: + abdomen distended Percussion/Palpation: + abdomen rigid Skin: no rashes, warm and dry Psychiatric: A+Ox3, euthymic affect Lymphatic: no cervical or axillary lymphadenopathy Results & Data ([facility]) Vital Signs (Past 12 Hours) Vital Signs Temp Pulse Pulse Pulse Resp BP BP 11/18/19 07:00 36.8 C 52 L 20 123/67 11/18/19 03:51 37.1 C 55 L 21 111/61 11/18/19 00:01 57 L 11/18/19 00:00 55 L 11/17/19 23:41 55 L 11/17/19 23:12 37 C 52 L 18 103/55 L Pulse Ox Pulse Ox 11/18/19 07:00 91 11/18/19 03:51 94 11/18/19 00:01 11/18/19 00:00 11/17/19 23:41 90 11/17/19 23:12 94 PG Care Time/CCT Total # of Minutes Spent Total Time Spent with Patient: Total time spent is greater than 50% in coordination of care (as documented) at patient's floor/unit and/or counseling p atient: 100 Prolonged Care Time Prolonged Care Time: Yes Total Prolonged Care Time: 55 Coding Level of Care Code 70008 Inpt Consult Level 3 Diagnoses Goals of care, counseling/discussion Z71.89 COPD (chronic obstructive pulmonary disease) J44.9 Cirrhosis K74.60 Hepatic encephalopathy K72.90 Altered mental status R41.82 Altered mental status type: unspecified Additional Codes Prolonged Care Time - Prolonged Care Time: Yes ([id number]) Time Spent (min) 125 Time Spent Midlevel Total time spent 100 minutes with > 50% of that time spent assessing the patient, discussing goals of care with pt and family, and collaborating with IDT, while completing a POLST form. Attending Total time spent 25 minutes at bedside discussing goals and plan of care with patient and family at bedside. Critical Care Time Prolonged Care Time Prolonged Care Time: Yes Total Prolonged Care Time: 55 125
--- NOTE | 2019-11-18 10:39 | Nephrology Progress Note ---
Date of Service November 18, 2019 Assessment & Plan (1) Acute kidney injury: * Clinically c/w HRS 1. Mildly improved w/ albumin, midodrine and octreotide * Continue current management * Patient w/ mild hyperkalemia and persistent metabolic acidosis. Will provide 1L 0.45NS w/ 75 mEq NaHCO3 * CMP in am * Discussed above plan of care w/ patient this morning. He does not desire further testing or hospitalization. He understands his poor prognosis and is open to discussing home hospice w/ palliative care. Will await palliative care assessment (2) Cirrhosis: * Hepatic encephalopathy improved w/ lactulose and rifaximin therapy * Hepatology evaluation at [facility] 10/29 - EMR indicates not a transplant candidate due to obesity and debilitated condition (3) COPD (chronic obstructive pulmonary disease): (4) Ascites: * Diagnostic paracentesis, 11/07, negative for SBP. Completed course of ertapenem for Klebsiella bacteremia and wound infection Admission and Anticipated Discharge Date Admission Date: November 08, 2019 Subjective Mr. Azul was seen & examined in his hospital room this morning. He was alert and oriented to self and place. He voiced no new medical concerns. Review of Systems Constitutional: no fever Eyes: no problem reported Ear, Nose, Mouth, Throat: no problem reported Respiratory: no dyspnea Cardiovascular: + edema; no chest pain Gastrointestinal: no abdominal pain and no diarrhea/loose stools Genitourinary: no dysuria, no urinary hesitancy and no hematuria Musculoskeletal: no back pain Integumentary: no rash Neurologic: no dizziness Physical Exam Constitutional: + morbidly obese Eyes: + anicteric sclerae and PERRL ENMT: external ear and nose normal, oropharynx normal Neck: trachea midline, no thyromegaly Respiratory: normal respiratory effort, lungs clear to auscultation Cardiovascular: Rate/Rhythm: regular rate Extremities: + edema Gastrointestinal (Abdomen): Inspection/Auscultation: + abdomen distended and normal bowel sounds Percussion/Palpation: abdomen nontender and no guarding Musculoskeletal: Extremities: no cyanosis Skin: pretibial hemosiderin staining c/w chronic lymphedema, + telangectasia of anterior chest well Neurologic: awake (oriented to self and place) Results & Data ([facility]) Vital Signs (Past 12 Hours) Vital Signs Temp Pulse Pulse Pulse Resp BP BP 11/18/19 07:00 36.8 C 52 L 20 123/67 11/18/19 03:51 37.1 C 55 L 21 111/61 11/18/19 00:01 57 L 11/18/19 00:00 55 L 11/17/19 23:41 55 L 11/17/19 23:12 37 C 52 L 18 103/55 L Pulse Ox Pulse Ox 11/18/19 07:00 91 11/18/19 03:51 94 11/18/19 00:01 11/18/19 00:00 11/17/19 23:41 90 11/17/19 23:12 94 Laboratory Results Laboratory Tests 11/17/19 11/18/19 08:15 06:30 WBC 6.01 Hgb 9.7 L Hct 29.4 L Plt Count 87 L Sodium 138 Potassium 5.3 H Chloride 113 H Carbon Dioxide 19 L BUN 54 H Creatinine 1.65 H Glucose 93 PG Care Time/CCT Total # of Minutes Spent Total Time Spent with Patient: Total time spent is greater than 50% in coordination of care (as documented) at patient's floor/unit and/or counseling patient: Coding Level of Care Code 87854 Subseq Hosp Care Lvl 3 Diagnoses Acute kidney injury N17.9 Cirrhosis K74.60 COPD (chronic obstructive pulmonary disease) J44.9 Ascites R18.8
[2019-11-18] MEDS ORDERED: SODIUM BICARBONATE 8.4% 75 MEQ in SODIUM CHLORIDE 0.45 % 1,000 ML IV SCH (11:00)
--- NOTE | 2019-11-18 17:50 | Hospitalist Progress Note ---
Date of Service November 18, 2019 Assessment & Plan (1) Acute kidney injury: Improving as of some elevation of potassium today. Nephrology is following. Providing 1 L of half-normal saline with bicarbonate creatinine modestly reduces again 1.69/8 he remains volume overloaded with ascites, edema stopped Lasix, Aldactone, Valsartan, Potassium 10mEq daily Midodrine, and Octreotide continue with nephrology oversight patient is NOT a candidate for SURGERY SPECIALIST since he is not a liver transplant candidate, confirms that [facility] said he was not a candidate consult palliative care to help discuss goals of care, code status family is decided that they are supportive of the patient's desire to come home on hospice care (2) Acute respiratory failure: With acute respiratory failure with hypercarbia on admission 7 days ago, likely due to hypoventilation from elevated ammonia level intubated on admission due to profound lethargy, concerns for inability to protect airway successfully extubated 11/09 breathing well on room air ever since he was extubated He is very somnolent during our visit says he is never been tested for sleep apnea we will start with a nocturnal oximetry test on the evening of 11/16- 11/17 CTA chest negative for PE, had pleural effusion, s/p thoracentesis, transudative, growing Enterococcus plan to reassess pleural effusion however, this can likely be put on hold since his worsening renal function will determine his prognosis (3) Hepatic encephalopathy: On presentation his ammonia was 200 and he was found gurgling in his bed at rehab, had an absent gag reflex and no response to pain. He was intubated. treated with Lactulose via OG tube while intubated ammonia responded well continue Lactulose 30gm TID, continue Rifaximin moving his bowels a few times a day diuretics now on hold Lasix and Aldactone due to decreased UO and rise in Cr to 2.0 -Continue rifaximin PO -Follows with hepatology at [facility] was just seen in October, he is NOT a candidate for transplant Ammonia levels have been favorable acute encephalopathy appears to be resolved (4) Cirrhosis: diagnosed 5 years ago, did not stop drinking until almost 2 years ago Alcoholic cirrhosis with history of esophageal varices and portal hypertension causing ascites hold Lasix and Spironolactone due to rise in Cr continue Rifaximin plts low, chronic issue albumin low at 1.5 now with concerns for HRS which for him would be a terminal diagnosis, not a candidate for SURGERY SPECIALIST consult palliative care (5) Pleural cavity effusion: could be extension of his ascites fluid. Transudative but cultures growing coag negative staph, enterococcus will treat with 10 days of antibiotics, repeat thoracentesis Thursday 11/16 is what was recommend This patient is a started on palliative care will not reevaluate this fluid (6) COPD (chronic obstructive pulmonary disease): No acute issues -Continue albuterol neb 4 times daily day 10 of Ertapenem, but this is covering Klebsiella foot wound and pleural fluid infection -Restarted home inhalers (7) BPH (benign prostatic hyperplasia): Fully catheter was placed patient typically is on Flomax (8) GERD (gastroesophageal reflux disease): PPI be held and Pepcid to be utilized intravenously (9) Open wound of left foot: Patient is been nursing an open wound in his left foot for some time. He previously has had bones removed according to his family for osteomyelitis secondary to a crush injury that occurred at work. Patient is missing the fourth and fifth toe on the right foot and the fourth toe on the left foot he has a 3 x 5 cm open wound on the dorsum of his left foot that goes down to the fatty tissue. CT scan of the foot suspicious for osteomyelitis of the third proximal phalanx Wound culture growing gram-negative rods -- Klebsiella that is sensitive to Ertapenem -Continue ertapenem, day 10 given his allergies is not an easy decision on medications to go home to continue to treat the Klebsiella. Completed course in the hospital ortho consulted, no plans for debridement vascular consult, patient with adequate blood flow to extremities for healing (10) Ascites: As above, status post paracentesis No evidence of SBP Lasix and Spironolactone currently on hold (11) Pancytopenia: Secondary to cirrhosis of liver Follow CBC, Hb and plts low but stable (12) Neuropathy: Severe in bilateral lower extremities -Typically is on gabapentin for this -Restarted gabapentin now more sleepy so once again be stopped (13) Barretts esophagus: Continue antacid (14) Hyperlipidemia: -Holding home statin for now (15) DVT prophylaxis: SCDs, plts are low Disposition- plan for home hospice evaluation Admission and Anticipated Discharge Date Admission Date: November 08, 2019 Subjective Patient was met for bright and alert today. He had a conversation with palliative care and confirmed that he wishes to go home on hospice care. He understands that he may progressively worsen clinically and and that he will not have the optimal rehabilitation that he would have at a rehab center but he is tired of being in the hospital tired of being ill. Reportedly through the palliative care nurse practitioner, his is also agreeable to this plan were going to set up a possible transition to home in the next 1 to 2 days Review of Systems 2 Review of Systems: Moderate distress and fatigue, falling asleep easily during exam no headache, blurry or double vision no speech or swallowing issues no chest pain, pressure or palpitations no shortness of breath, cough or wheezes Generalized mild diffuse abdominal pain, without nausea or vomiting, persistent plan diarrhea due to lactulose no dysuria, hematuria or frequency no focal joint pain significant bilateral lower extremity no back pain, CVA tenderness or radicular pain Improving appearance of left foot dorsal wound no focal signs of weakness or numbness no complaints or anxiety Physical Exam Physical Exam: The patient appeared chronically ill fatigued and lethargic Vital signs as documented. Head exam is normocephalic atraumatic no scleral icterus Neck is with JVD, no thyromegaly, or carotid bruits. Lungs are clear diminished at the bases Cardiac exam, Rhythm is regular.. No murmurs, rubs or gallops. Abdominal exam reveals normal bowel sounds, soft distended and dull consistent with ascites Extremities are 2+ bilateral edema and left dorsal foot has a wound which is healing Neurologic exam is alert and oriented, but is fatigued and I believe his not completely grasping the depth and breath of the situation. No focal loss of strength or sensation Skin is with peeling prehospital foot wound Psychologically is with depression. Results & Data Results & Data ([facility]) Vital Signs (Past 12 Hours) Vital Signs Temp Pulse Resp BP Pulse Ox 11/18/19 15:27 97.5 F L 54 L 18 109/61 94 11/18/19 11:00 97.3 F L 55 L 20 136/60 95 11/18/19 07:00 98.2 F 52 L 20 123/67 91 PG Care Time/CCT Total # of Minutes Spent Total Time Spent with Patient: Total time spent is greater than 50% in coordination of care (as documented) at patient's floor/unit and/or counseling patient: Coding Level of Care Code 97286 Subseq Hosp Care Lvl 3 Diagnoses Acute kidney injury N17.9 Acute respiratory failure J96.00 Hepatic encephalopathy K72.90 Cirrhosis K74.60 Pleural cavity effusion J90 COPD (chronic obstructive pulmonary disease) J44.9 BPH (benign prostatic hyperplasia) N40.0 GERD (gastroesophageal reflux disease) K21.9 Open wound of left foot S91.302D Encounter type: subsequent encounter Ascites R18.8 Pancytopenia D61.818 Neuropathy G62.9 Barretts esophagus K22.70 Hyperlipidemia E78.5 DVT prophylaxis Z29.9 (1) Open wound of left foot Encounter type: subsequent encounter Qualified Code(s): S91.302D - Unspecified open wound, left foot, subsequent encounter
[2019-11-19] MEDS: OCTREOTIDE ACETATE 100 MCG/ML VIAL SQ SCH ×4 (00:27→20:53)
[2019-11-19] MEDS: ALBUMIN 25% 50 ML IV SCH ×3 (00:28→07:23)
[2019-11-19] MEDS: MIDODRINE HCL 2.5 MG TAB PO SCH ×3 (06:01→20:57)
[2019-11-19] MEDS: ENOXAPARIN INJ 40 MG/0.4 ML SYR SQ SCH (07:23)
[2019-11-19] MEDS: PANTOprazole 40 MG TAB PO SCH (07:23)
[2019-11-19] MEDS: RIFAXIMIN 550 MG TABLET PO SCH ×2 (07:23→20:56)
[2019-11-19] MEDS: LACTULOSE SYRUP 30 GM/45 ML UDP PO SCH ×3 (07:23→20:54)
[2019-11-19] MEDS: SODIUM BICARBONATE 650 MG TAB PO SCH ×3 (07:23→20:55)
[2019-11-19 07:37] LABS: Hematocrit (blood only) 28.6 % (42-52); Hemoglobin 9.1 g/dL (14.0-18.0); Mean Corpuscular Hemoglobin 30.2 pg (25-34); Mean Corpuscular Hgb Conc 31.8 g/dL (32-36); Mean Platelet Volume 12.4 fL (7.4-10.4); Platelet Count 85 K/uL (130-400); RDW Standard Deviation 73.2 fL (36.4-46.3); Red Blood Count 3.01 M/uL (4.7-6.1); White Blood Count 5.22 K/uL (4.8-10.8)
[2019-11-19 08:02] LABS: Albumin Level 2.6 gm/dl (3.4-5.0); BUN Creatinine Ratio 37.1 (10-20); Calcium 8.5 mg/dl (8.5-10.1); Est GFR (African American) 62.1; Est GFR (Non-African American) 53.6; Potassium 4.8 mmol/L (3.5-5.1)
[2019-11-19 08:05] LABS: Albumin Globulin Ratio 0.8 (0.9-2); Bilirubin,Total 1.3 mg/dl (0.2-1); Globulin 3.4 gm/dl (2.5-4.0)
--- NOTE | 2019-11-19 09:31 | Nephrology Progress Note ---
Date of Service November 19, 2019 Assessment & Plan (1) Acute kidney injury: * Clinically c/w HRS 1. Slow continued improvement w/ albumin, midodrine and octreotide * Continue current management until hospice is arranged * Discontinue de leon at the discretion of the hospitalist service * Since patient is transitioning to hospice care will stop lab testing and sign off. Please call if further Nephrology assistance is needed (2) Cirrhosis: * Hepatic encephalopathy improved w/ lactulose and rifaximin therapy * Hepatology evaluation at [facility] 10/[facility] - [facility] indicates not a transplant candidate due to obesity and debilitated condition (3) COPD (chronic obstructive pulmonary disease): (4) Ascites: * Diagnostic paracentesis, 11/07, negative for SBP. Completed course of ertapenem for Klebsiella bacteremia and wound infection Admission and Anticipated Discharge Date Admission Date: November 08, 2019 Subjective Mr. Azul was seen & examined in his hospital room this morning. He reports no complications overnight. He wishes to return home w/ hospice Review of Systems Constitutional: + weakness; no fever Eyes: no problem reported Ear, Nose, Mouth, Throat: no problem reported Respiratory: no dyspnea Cardiovascular: + edema; no chest pain Gastrointestinal: no abdominal pain and no diarrhea/loose stools Genitourinary: no dysuria, no urinary hesitancy and no hematuria Musculoskeletal: no back pain Integumentary: no rash Neurologic: no dizziness Physical Exam Constitutional: + morbidly obese Eyes: + anicteric sclerae and PERRL ENMT: external ear and nose normal, oropharynx normal Neck: trachea midline, no thyromegaly Respiratory: normal respiratory effort, lungs clear to auscultation Cardiovascular: Rate/Rhythm: regular rate Extremities: + edema Gastrointestinal (Abdomen): Inspection/Auscultation: + abdomen distended and normal bowel sounds Percussion/Palpation: abdomen nontender and no guarding Musculoskeletal: Extremities: no cyanosis Neurologic: awake (oriented to self and place) Results & Data ([facility]) Vital Signs (Past 12 Hours) Vital Signs Temp Pulse Pulse Resp BP BP Pulse Ox 11/19/19 07:00 36.5 C 55 L 20 118/65 94 11/19/19 04:18 36.9 C 52 L 22 121/62 93 11/19/19 00:01 56 L 11/18/19 22:38 37 C 53 L 19 113/66 93 Laboratory Results Laboratory Tests 11/19/19 11/19/19 07:02 07:02 WBC 5.22 Hgb 9.1 L Hct 28.6 L Plt Count 85 L Sodium 141 Potassium 4.8 Chloride 114 H Carbon Dioxide 21 BUN 53 H Creatinine 1.43 H Glucose 119 H Total Bilirubin 1.3 H AST 21 ALT 17 Alkaline Phosphatase 116 Albumin 2.6 L PG Care Time/CCT Total # of Minutes Spent Total Time Spent with Patient: Total time spent is greater than 50% in coordination of care (as documented) at patient's floor/unit and/or counseling patient: Coding Level of Care Code 76641 Subseq Hosp Care Lvl 3 Diagnoses Acute kidney injury N17.9 Cirrhosis K74.60 COPD (chronic obstructive pulmonary disease) J44.9 Ascites R18.8
--- NOTE | 2019-11-19 13:21 | Hospitalist Progress Note ---
Date of Service November 19, 2019 Assessment & Plan (1) Acute kidney injury: Resolving creatinine now 1.4 nephrology has signed off and the fact that the patient is entering hospice care stopped Lasix, Aldactone, Valsartan, Potassium 10mEq daily Midodrine, and Octreotide continue with nephrology oversight patient is NOT a candidate for SLABBER since he is not a liver transplant candidate, confirms that [facility] said he was not a candidate consult palliative care to help discuss goals of care, code status family is decided that they are supportive of the patient's desire to come home on hospice care (2) Acute respiratory failure: Resolved acute respiratory failure with hypercarbia on admission 7 days ago, likely due to hypoventilation from elevated ammonia level now resolved intubated on admission due to profound lethargy, concerns for inability to protect airway successfully extubated 11/09 breathing well on room air ever since he was extubated He is very somnolent during our visit says he is never been tested for slee p apnea we will start with a nocturnal oximetry test on the evening of 11/16-11/17 CTA chest negative for PE, had pleural effusion, s/p thoracentesis, transudative, growing Enterococcus plan to reassess pleural effusion however, this can likely be put on hold since his worsening renal function will determine his prognosis (3) Hepatic encephalopathy: On presentation his ammonia was 200 and he was found gurgling in his bed at rehab, had an absent gag reflex and no response to pain. He was intubated. treated with Lactulose via OG tube while intubated ammonia responded well continue Lactulose 30gm TID, continue Rifaximin moving his bowels a few times a day diuretics now on hold Lasix and Aldactone due to decreased UO and rise in Cr to 2.0 -Continue rifaximin PO -Follows with hepatology at [facility] was just seen in October, he is NOT a candidate for transplant Ammonia levels have been favorable acute encephalopathy appears to be resolved (4) Cirrhosis: diagnosed 5 years ago, did not stop drinking until almost 2 years ago Alcoholic cirrhosis with history of esophageal varices and portal hypertension causing ascites hold Lasix and Spironolactone due to rise in Cr continue Rifaximin plts low, chronic issue albumin low at 1.5 consult palliative care patient now agrees to progress towards hospice care (5) Pleural cavity effusion: could be extension of his ascites fluid. Transudative but cultures growing coag negative staph, enterococcus will treat with 10 days of antibiotics, repeat thoracentesis Thursday 11/16 is what was recommend This patient is a started on palliative care will not reevaluate this fluid (6) COPD (chronic obstructive pulmonary disease): No acute issues -Continue albuterol neb 4 times daily Completed a 10-day course of Ertapenem, but this is covering Klebsiella foot wound and pleural fluid infection -Restarted home inhalers (7) BPH (benign prostatic hyperplasia): Cifuentes catheter was placed patient typically is on Flomax given hospice care patient may go home with Cifuentes catheter (8) GERD (gastroesophageal reflux disease): Resume oral medications (9) Open wound of left foot: Patient is been nursing an open wound in his left foot for some time. He previously has had bones removed according to his family for osteomyelitis secondary to a crush injury that occurred at work. Patient is missing the fourth and fifth toe on the right foot and the fourth toe on the left foot he has a 3 x 5 cm open wound on the dorsum of his left foot that goes down to the fatty tissue. CT scan of the foot suspicious for osteomyelitis of the third proximal phalanx Wound culture growing gram-negative rods -- Klebsiella that is sensitive to Ertapenem -Completed 10 days of ertapenem, given his allergies is not an easy decision on medications to go home to continue to treat the Klebsiella. Completed course in the hospital ortho consulted, no plans for debridement vascular consult, patient with adequate blood flow to extremities for healing (10) Ascites: As above, status post paracentesis No evidence of SBP Lasix and Spironolactone currently on hold (11) Pancytopenia: Secondary to cirrhosis of liver Follow CBC, Hb and plts low but stable (12) Neuropathy: Severe in bilateral lower extremities -Typically is on gabapentin for this -Restarted gabapentin now more sleepy so once again be stopped (13) Barretts esophagus: Continue antacid (14) Hyperlipidemia: -Holding home statin (15) DVT prophylaxis: SCDs, plts are low Disposition- plan for home hospice evaluation Admission and Anticipated Discharge Date Admission Date: November 08, 2019 Subjective Mr. Azul is more bright and alert today however he is markedly weak and deconditioned. He wishes to return home w/ hospice is looking forward to go home in the next 1 to 2 days once home equipment is delivered from the hospice company Review of Systems Review of Systems: Mild distress and fatigue, much more awake and alert no headache, blurry or double vision no speech or swallowing issues no chest pain, pressure or palpitations Baseline shortness of breath likely from ascites pushing up on his diaphragm, cough or wheezes No further abdominal pain, nausea or vomiting, persistent plan diarrhea due to lactulose no dysuria, hematuria or frequency no focal joint pain significant bilateral lower extremity no back pain, CVA tenderness or radicular pain Improving appearance of left foot dorsal wound no focal signs of weakness or numbness no complaints or anxiety Physical Exam Physical Exam: The patient appeared chronically ill fatigued, but much more awake and alert Vital signs as documented. Head exam is normocephalic atraumatic no scleral icterus Neck is with JVD, no thyromegaly, or carotid bruits. Lungs are clear diminished at the bases Cardiac exam, Rhythm is regular.. No murmurs, rubs or gallops. Abdominal exam reveals normal bowel sounds, soft distended and remains dull consistent with ascites Extremities remain with 2+ bilateral edema and left dorsal foot has a wound which is healing Neurologic exam is alert and oriented, but is fatigued markedly deconditioned. No focal loss of strength or sensation Skin is with prehospital foot wound Psychologically is with depression he seems more bright and happy in the fact that he is going to go home. Results & Data Results & Data ([facility]) Vital Signs (Past 12 Hours) Vital Signs Temp Pulse Resp BP BP Pulse Ox 11/19/19 11:00 98.1 F 53 L 20 138/70 95 11/19/19 07:00 97.7 F 55 L 20 118/65 94 11/19/19 04:18 98.4 F 52 L 22 121/62 93 PG Care Time/CCT Total # of Minutes Spent Total Time Spent with Patient: Total time spent is greater than 50% in coordination of care (as documented) at patient's floor/unit and/or counseling patient: Coding Level of Care Code 03364 Subseq Hosp Care Lvl 3 Diagnoses Acute kidney injury N17.9 Acute respiratory failure J96.00 Hepatic encephalopathy K72.90 Cirrhosis K74.60 Pleural cavity effusion J90 COPD (chronic obstructive pulmonary disease) J44.9 BPH (benign prostatic hyperplasia) N40.0 GERD (gastroesophageal reflux disease) K21.9 Open wound of left foot S91.302D Encounter type: subsequent encounter Ascites R18.8 Pancytopenia D61.818 Neuropathy G62.9 Barretts esophagus K22.70 Hyperlipidemia E78.5 DVT prophylaxis Z29.9 (1) Open wound of left foot Encounter type: subsequent encounter Qualified Code(s): S91.302D - Unspecified open wound, left foot, subsequent encounter
[2019-11-20 06:17] LABS: Albumin Level 2.3 gm/dl (3.4-5.0); BUN Creatinine Ratio 35.1 (10-20); Calcium 8.1 mg/dl (8.5-10.1); Creatinine Clr Calc Pharmacy 74.4 ml/min; Est GFR (African American) 59.6; Est GFR (Non-African American) 51.4; Potassium 4.6 mmol/L (3.5-5.1)
[2019-11-20 06:21] LABS: Albumin Globulin Ratio 0.7 (0.9-2); Bilirubin,Total 1.7 mg/dl (0.2-1); Globulin 3.4 gm/dl (2.5-4.0); Total Protein 5.7 gm/dl (6.4-8.2)
[2019-11-20] MEDS: OCTREOTIDE ACETATE 100 MCG/ML VIAL SQ SCH ×2 (06:36→13:17)
[2019-11-20] MEDS: MIDODRINE HCL 2.5 MG TAB PO SCH ×2 (06:37→13:17)
[2019-11-20] MEDS: RIFAXIMIN 550 MG TABLET PO SCH (07:54)
[2019-11-20] MEDS: SODIUM BICARBONATE 650 MG TAB PO SCH ×2 (07:54→13:17)
[2019-11-20] MEDS: PANTOprazole 40 MG TAB PO SCH (07:54)
[2019-11-20] MEDS: ENOXAPARIN INJ 40 MG/0.4 ML SYR SQ SCH (07:54)
[2019-11-20] MEDS: LACTULOSE SYRUP 30 GM/45 ML UDP PO SCH ×2 (07:54→13:17)
[2019-11-20] MEDS ORDERED: FAMOTIDINE 20 MG TAB PO SCH (09:00)
--- NOTE | 2019-11-20 17:49 | Discharge Summary ---
Date of Service November 20, 2019 Admission HPI Per Admitting Provider 58-year-old gentleman with a history of alcoholic cirrhosis, recurrent foot infections with a recent hospitalization for encephalopathy treated at that time for Klebsiella pneumonia coming today from [facility] for you to change in mental status overnight. Patient evidently per report from the facility was hospitalized at [facility] for recurrent diabetic foot ulcer as well as encephalopathy. Was on ertapenem at that time. He had a paracentesis at [facility] for 6 L of fluid removed. Evidently there is been some issues at home prior to his hospitalizations with him affording rifaximin they believe the cause of his mental status change was related to that previously. Patient did have a Klebsiella pneumonia that he was treated for as well. Does have a reported underlying history of COPD as well. Facility states that at some point overnight his mental status change. They noted rounding around 6-6 30a this morning that he had gurgling breathing sounds and a code was called to their facility. He was brought here for further care. He was unresponsive for them and did not respond to painful stimuli. EMS reported mildly elevated glucose in the 120s. Upon arrival here he will occasionally move the upper extremities but not following commands. Eyes are roving. Nonverbal. He is unable provide significant history. Principal Diagnosis Hepatic encephalopathy Advanced cirrhosis Acute kidney injury with concern for hepatorenal syndrome Decision to pursue hospice care Discharge Exam The patient chronically ill Vital signs as documented. Lungs are diminished at the base increased respiratory effort is noted Cardiac exam, Rhythm is regular. Systolic murmur is heard Abdominal exam reveals normal bowel sounds, soft standing and dull consistent with ascites Extremities are 2+ bilateral edema 2 legs Neurologic exam is alert and oriented, overall is very weak seems to have insight into decision of hospice care Skin is with bruises of various age Psychologically is without concerns for anxiety or depression. Discharge Data Allergies Allergy/AdvReac Type Severity Reaction Status Date / Time vancomycin Allergy Intermediate Hives Verified 11/15/19 11:33 adhesive tape Allergy Unknown Unknown Unverified 11/09/19 17:17 Cephalosporins Allergy Unknown Unknown Unverified 11/08/19 08:48 ciprofloxacin Allergy Unknown Unknown Unverified 11/08/19 08:48 linezolid Allergy Unknown Unknown Unverified 11/08/19 08:48 Consultations 11/08/19 09:57 ED Decision to Admit Stat 11/08/19 12:21 Consult Case Management - Discharge Planning Routine Consult Home Visitor [employer] Routine 11/10/19 15:02 Consult Wound Care Provider Routine 11/11/19 09:57 Consult Orthopedic Surgery Routine 11/11/19 13:40 Consult Vascular Surgery Routine 11/16/19 15:05 Consult Palliative Care Routine Ordered Studies 11/08/19 07:10 CT head/brain wo con Stat 11/08/19 07:17 CT angio head w con Stat CT angio neck with con Stat 11/08/19 08:03 CT angio chest PE protocol Stat 11/08/19 11:35 CT foot LT wo con Stat 11/08/19 12:27 US point of care ultrasound Stat Hospital Course (1) Transition from hospice to acute care: (2) Acute kidney injury: Resolving creatinine now 1.4 nephrology has signed off and the fact that the patient is entering hospice care stopped Lasix, Aldactone, Valsartan, Potassium 10mEq daily Did complete course of midodrine, and Octreotide continue with nephrology oversight these are stopped at time of discharge patient is NOT a candidate for VEGETABLE SCULLION since he is not a liver transplant candidate, confirms that [facility] said he was not a candidate consulted palliative care to help discuss goals of care, code status. family is decided that they are supportive of the patient's desire to come home on hospice care hospice care set up on 11/20/2019 (3) Acute respiratory failure: Resolved acute respiratory failure with hypercarbia on admission 7 days ago, likely due to hypoventilation from elevated ammonia level now resolved intubated on admission due to profound lethargy, concerns for inability to protect airway successfully extubated 11/09 breathing well on room air ever since he was extubated He is very somnolent during our visit says he is never been tested for sleep apnea we will start with a nocturnal oximetry test on the evening of 11/16- 11/17 CTA chest negative for PE, had pleural effusion, s/p thoracentesis, transudative, growing Enterococcus plan to reassess pleural effusion however, this can likely be put on hold since his worsening renal function will determine his prognosis (4) Hepatic encephalopathy: On presentation his ammonia was 200 and he was found gurgling in his bed at rehab, had an absent gag reflex and no response to pain. He was intubated. treated with Lactulose via OG tube while intubated ammonia responded well continue Lactulose 30gm TID, continue Rifaximin moving his bowels a few times a day diuretics now on hold Lasix and Aldactone due to decreased UO and rise in Cr to 2.0 -Continue rifaximin PO -Follows with hepatology at [facility] was just seen in October, he is NOT a candidate for transplant Ammonia levels have been favorable acute encephalopathy appears to be resolved (5) Cirrhosis: diagnosed 5 years ago, did not stop drinking until almost 2 years ago Alcoholic cirrhosis with history of esophageal varices and portal hypertension causing ascites We will stop Lasix and Spironolactone time of discharge continue Rifaximin (6) Pleural cavity effusion: could be extension of his ascites fluid. Transudative but cultures growing coag negative staph, enterococcus will treat with 10 days of antibiotics, repeat thoracentesis Thursday 11/16 is what was recommend This patient is a started on palliative care will not reevaluate this fluid (7) COPD (chronic obstructive pulmonary disease): No acute issues -Continue albuterol neb 4 times daily Completed a 10-day course of Ertapenem, but this is covering Klebsiella foot wound and pleural fluid infection -Restarted home inhalers (8) BPH (benign prostatic hyperplasia): Cifuentes catheter was placed patient typically is on Flomax given hospice care patient may go home with Cifuentes catheter for comfort (9) GERD (gastroesophageal reflux disease): (10) Open wound of left foot: Patient is been nursing an open wound in his left foot for some time. He previously has had bones removed according to his family for osteomyelitis secondary to a crush injury that occurred at work. Patient is missing the fourth and fifth toe on the right foot and the fourth toe on the left foot he has a 3 x 5 cm open wound on the dorsum of his left foot that goes down to the fatty tissue. CT scan of the foot suspicious for osteomyelitis of the third proximal phalanx Wound culture growing gram-negative rods -- Klebsiella that is sensitive to Ertapenem -Completed 10 days of ertapenem, given his allergies is not an easy decision on medications to go home to continue to treat the Klebsiella. Completed course in the hospital ortho consulted, no plans for debridement vascular consult, patient with adequate blood flow to extremities for healing (11) Ascites: As above, status post paracentesis No evidence of SBP Lasix and Spironolactone currently discontinued (12) Pancytopenia: Secondary to cirrhosis of liver (13) Neuropathy: Severe in bilateral lower extremities -Typically is on gabapentin for this however due to lethargy gabapentin was stopped has had no complaints of neuropathic pain in his lower legs (14) Barretts esophagus: (15) Hyperlipidemia: Discontinued home statin Total Time Total Time Spent Total Time Spent (In Minutes): It required greater than 30 minutes to prepare this patient for discharge Discharge Plan Discharge Items Patient Disposition: Hospice - Home Reason For Visit: ACUTE RESPIRATORY FAILURE,HEPATIC ENCEPHALOPATHY Discharge Diagnosis: hepatic encephalopathy cirrhosis hospice care Activity: Per Instructions section Activity Comment: pt can be as active or inactive as he pleases Non-emergency contact: Primary Care Provider Call non-emergency contact if: you have any medication questions Follow-up/Referrals: PCP,NO [Primary Care Provider] - Diet: Regular Addtl Attending Provider Instructions: we will follow the lead of the hospice home care team. Pending Studies at Discharge: No Stand-Alone Forms: My [facility] Medications and DC Order Prescriptions: Continued albuterol sulfate 90 mcg/actuation HFA aerosol inhaler 2 puff INHALATION Q6 PRN (Reason: Wheezing) Qty: 1 RF: 0 lactulose 10 gram/15 mL solution 15 ml PO QID Qty: 2000 RF: 5 Xifaxan 550 mg tablet 550 mg PO BID Qty: 60 RF: 5 Incruse Ellipta 62.5 mcg/actuation Blister With Device 1 inh INHALATION QAM Qty: 1 RF: 0 Discontinued furosemide 40 mg tablet 40 mg PO BID RF: 0 pantoprazole 40 mg Tablet,Delayed Release (Dr/Ec) 40 mg PO QAM RF: 0 atorvastatin 20 mg tablet 20 mg PO HS RF: 0 sucralfate 1 gram tablet 1 g PO QAM RF: 0 thiamine HCl (vitamin B1) 100 mg Tablet 100 mg PO QAM RF: 0 magnesium hydroxide [Milk of Magnesia] 400 mg/5 mL Suspension 30 ml PO DAILY PRN (Reason: Constipation) RF: 0 cyanocobalamin (vitamin B-12) 500 mcg Tablet 500 mcg PO QAM RF: 0 tamsulosin 0.4 mg capsule 0.4 mg PO QAM RF: 0 bisacodyl 10 mg Suppository 10 mg DC DAILY PRN (Reason: Constipation) RF: 0 Fleet Enema 19-7 gram/118 mL Enema 133 ml DC DAILY PRN (Reason: Constipation) RF: 0 docusate sodium 100 mg Capsule 100 mg PO BID RF: 0 gabapentin 100 mg capsule 100 mg PO TID RF: 0 zinc sulfate 220 mg Capsule 220 mg PO QAM RF: 0 sennosides-docusate sodium [Senokot-S] 8.6-50 mg Tablet 1 tab-cap PO QDL PRN (Reason: Constipation) RF: 0 acetaminophen [Tylenol] 325 mg Tablet 650 mg PO QID PRN (Reason: Pain) RF: 0 prednisone 10 mg Tablet 30 mg PO QAM RF: 0 dextromethorphan-guaifenesin 10-100 mg/5 mL Liquid 10 ml PO Q6H PRN (Reason: Cough) RF: 0 lidocaine [Lidoderm] 5 % Adhesive Patch,Medicated 2 patch TOPICAL QAM RF: 0 nystatin 100,000 unit/gram Powder 1 applic TOPICAL QID RF: 0 Santyl 250 unit/gram Ointment 1 applic TOPICAL DAILY RF: 0 polyethylene glycol 3350 [Miralax] 17 gram/dose Powder 17 g PO QDL PRN (Reason: Constipation) RF: 0 spironolactone 50 mg tablet 100 mg PO BID RF: 0 fluticasone furoate-vilanterol 100-25 mcg/dose Blister With Device 1 inh INHALATION QAM RF: 0 Discharge Orders: Discharge Order (Routine); Ordered 11/20/19 Ordered By: Marco Coon Admission Data Admit Date/Time: 11/08/19 10:32 Attending Provider: Marco Coon Admit Provider: Marco Coon Primary Care Provider: PCP,NO Other Providers: [facility] ; Jessi Wallace ; Magnus Mayorga ; Gareth Gill ; Pancho Solomon ; Lars Ca ; Mckenzie Galo ; [facility] Other Interventions: Discharge Summary Assessment (RN) Last Done: 11/20/19 13:51 Coding Level of Care Code D/C Day Management >30 mins Diagnoses Transition from hospice to acute care Acute kidney injury N17.9 Acute respiratory failure J96.00 Hepatic encephalopathy K72.90 Cirrhosis K74.60 Pleural cavity effusion J90 COPD (chronic obstructive pulmonary disease) J44.9 BPH (benign prostatic hyperplasia) N40.0 GERD (gastroesophageal reflux disease) K21.9 Open wound of left foot S91.302D Encounter type: subsequent encounter Ascites R18.8 Pancytopenia D61.818 Neuropathy G62.9 Barretts esophagus K22.70 Hyperlipidemia E78.5
--- NOTE | 2019-11-28 10:52 | Coding Query ---
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 Please assist us with the question(s) below: Coding Question(s): 1. Acute Hepatic Encephalopathy is documented in the record in patient with history of alcoholic cirrhosis. Documentation in Progress Notes shows etiology of Hepatic Encephalopathy uncertain. Please clarify below, regarding etiology of Acute Hepatic Encephalopathy. ( xx) Acute Hepatic Encephalopathy, Alcoholic ( ) Acute Hepatic Encephalopathy, Etiology is not Alcoholic related ( ) Acute Hepatic Encephalopathy, Other: Please Specify . 2. There is documentation on the H&P of history of Diabetic Foot Ulcers but there is no documentation of Diabetes elsewhere in the record. Please specify below. ( xx ) No Diabetes ( ) Diabetes ( ) Other: Please Specify Physician's Response(s): Thank you Hanna Cosby Principal Diagnosis: "that condition established after study, to be chiefly responsible for occasioning the admission of the patient to the hospital for care." Co-Existing Principal Diagnosis: "when two or more diagnoses equally meet the criteria for principal diagnosis as determined by the circumstances of admission, diagnostic work up, and/or therapy provided, and the Alphabetic Index, Tabular List, or another coding guideline does not provide sequencing direction, any one of the diagnoses may be sequenced first." "When the physician has documented what appears to be a current diagnosis in the body of the record, but has not included the diagnosis in the final diagnostic statement, the physician should be asked whether the diagnosis should be added." (Source [facility]oding [facility] 2 QTR90. p3-4) JORDI
--- NOTE | 2019-11-28 10:54 | Coding Query ---
DEBRIDEMENT DOCUMENTATION To promote full compliance with coding requirements relating to patient care, physician participation is requested in all cases of it admin uncertainty. Please assist us with the question(s) below: Please place an X in the parenthesis (x). If other, please document the finding: Please specify regarding Debridement on 11/11/19: Depth of Debridement: ( ) Skin (x ) Skin and Subcutaneous Tissue ( ) Skin, Subcutaneous Tissue and Muscle ( ) Skin, Subcutaneous Tissue, Muscle and Bone ( ) Other (please specify): Thank you Hanna BACON
== END 2019-11-20 16:03 | disposition hospice, home (50) | DRG 423 ==
LOC: ED 07:03 → SUATTDRO 10:32 → 1E 10:32 → 2N 11-12 12:01